=== PATIENT | female | born 1945 | race Caucasian/White ===

== ENCOUNTER → 2016-03-14 | Outpatient (CLI) | payer MEDICARE ==
--- NOTE | 2016-03-15 12:48 | MM ---
Reason for exam: screening (asymptomatic). Last mammogram was performed 1 year ago. History: Patient is postmenopausal. Family history of breast cancer in cousin. Taking estrogen for 9 years. Physical Findings: A clinical breast exam by your physician is recommended on an annual basis and results should be correlated with mammographic findings. MG 3D Screening Mammo W/Cad Bilateral CC and MLO view(s) were taken. Prior study comparison: March 10, 2015, bilateral MG 3d screening mammo w/cad. November 22, 2011, mammogram, performed at [place]. There are scattered fibroglandular densities. There is no discrete abnormality. ASSESSMENT: Negative, BI-RAD 1 RECOMMENDATION: Routine screening mammogram of both breasts in 1 year.
== END | disposition home or self-care (01) ==
LOC: RADMAMWWP 11:13
PROVIDERS: ATTEND Family Medicine
DX: Z12.31 Encounter for screening mammogram for malignant neoplasm of breast (principal)
CPT/HCPCS: 77063; G0202

== ENCOUNTER → 2017-07-20 | Outpatient (CLI) | payer MEDICARE ==
--- NOTE | 2017-07-24 13:35 | MM ---
Reason for exam: screening (asymptomatic). Last mammogram was performed 1 year and 4 months ago. History: Patient is postmenopausal. Family history of breast cancer in cousin. Taking estrogen for 9 years. Physical Findings: A clinical breast exam by your physician is recommended on an annual basis and results should be correlated with mammographic findings. MG 3D Screening Mammo W/Cad Bilateral CC and MLO view(s) were taken. Prior study comparison: March 14, 2016, bilateral MG 3d screening mammo w/cad. March 10, 2015, bilateral MG 3d screening mammo w/cad. No significant changes when compared with prior studies. ASSESSMENT: Benign, BI-RAD 2 RECOMMENDATION: Routine screening mammogram of both breasts in 1 year.
== END | disposition home or self-care (01) ==
LOC: RADMAMWWP 06:51
PROVIDERS: ATTEND Family Medicine
DX: Z12.31 Encounter for screening mammogram for malignant neoplasm of breast (principal)
CPT/HCPCS: 77063; 77067

== ENCOUNTER → 2018-07-31 | Outpatient (CLI) | payer MEDICARE ==
--- NOTE | 2018-07-31 11:13 | MM ---
Reason for exam: screening (asymptomatic). Last mammogram was performed 1 year ago. History: Patient is postmenopausal. Family history of breast cancer in cousin. Taking estrogen for 9 years. Physical Findings: A clinical breast exam by your physician is recommended on an annual basis and results should be correlated with mammographic findings. MG 3D Screening Mammo W/Cad Bilateral CC and MLO view(s) were taken. Prior study comparison: July 20, 2017, bilateral MG 3d screening mammo w/cad. March 14, 2016, bilateral MG 3d screening mammo w/cad. There are scattered fibroglandular densities. No suspicious abnormality. No significant changes when compared with prior studies. ASSESSMENT: Negative, BI-RAD 1 RECOMMENDATION: Routine screening mammogram of both breasts in 1 year.
== END | disposition home or self-care (01) ==
LOC: RADMAMWWP 06:57
PROVIDERS: ATTEND Family Medicine
DX: Z12.31 Encounter for screening mammogram for malignant neoplasm of breast (principal)
CPT/HCPCS: 77063; 77067

== ENCOUNTER → 2019-08-28 | Outpatient (CLI) | payer MEDICARE ==
--- NOTE | 2019-08-29 11:00 | MM ---
Reason for exam: screening (asymptomatic). Last mammogram was performed 1 year and 1 month ago. History: Patient is postmenopausal. Family history of breast cancer in cousin. Taking estrogen for 9 years. Physical Findings: A clinical breast exam by your physician is recommended on an annual basis and results should be correlated with mammographic findings. MG 3D Screening Mammo W/Cad Bilateral CC and MLO view(s) were taken. Prior study comparison: July 31, 2018, bilateral MG 3d screening mammo w/cad. July 20, 2017, bilateral MG 3d screening mammo w/cad. There are scattered fibroglandular densities. No significant changes when compared with prior studies. ASSESSMENT: Benign, BI-RAD 2 RECOMMENDATION: Routine screening mammogram of both breasts in 1 year.
== END | disposition home or self-care (01) ==
LOC: RADMAMWWP 09:03
PROVIDERS: ATTEND Family Medicine
DX: Z12.31 Encounter for screening mammogram for malignant neoplasm of breast (principal)
CPT/HCPCS: 77063; 77067

== ENCOUNTER → 2020-04-06 | Outpatient (CLI) | payer MEDICARE ==
--- NOTE | 2020-04-06 13:10 | MR ---
EXAMINATION TYPE: MR brain/cspine wo DATE OF EXAM: 04/06/2020 COMPARISON: NONE HISTORY: Ataxia, sudden onset, CVA, dizziness. C-spine, neck pain, hyperreflexia/myelopathy. TECHNIQUE: Multiplanar, multisequence imaging of the brain and brainstem and cervical spine are all p erformed without IV contrast. FINDINGS: BRAIN: Diffusion weighted images demonstrate no evidence of a recent infarct or other diffusion abnormality. There is no worrisome extra-axial fluid collection. Mild ventricular and sulcal prominence. More mode rate to advanced multifocal areas of T2 hyperintensity scattered throughout the superficial deep and periventricular white matter. Findings greatest at periventricular and deep levels where confluent ap pearance is noted. Lesions are nonspecific in appearance and distribution. Midline structures demonstrate normal morphology. The craniocervical junction appears within normal limits. Normal vascular flow voids are present. Mild mucosal thickening involving left ethmoid sinuse s. Bilateral globes are intact . Increased fluid signal right mastoid air cells. IMPRESSION: 1. Mild diffuse age-related cerebral atrophy and moderate to advanced chronic small vessel ischemic c hange. 2. No MRI evidence for recent infarct. 3. Increased fluid signal right mastoid air cells raises concern for possible mastoiditis, correlate clinically. C-SPINE: FINDINGS: Coronal images show levoconvex scoliosis centered in the lower cervical spine. Sagittal ron ges of the cervical spine show the craniocervical junction to appear within normal limits. There is grade 1 retrolisthesis C3 on C4 and to lesser degree C4 on C5 and C5 on C6. The cervical and upper th oracic spinal cord is normal in caliber and signal. Generalized cervical spinal canal AP diameter sal rowing. The vertebral body heights are normal. Mild disc space narrowing C3-C4 through C5-C6 levels. The bone marrow signal intensity is within normal limits. Axial images at C2-C3 level are within normal limits. Axial images at C3-C4 level show spondylolisthesis focal central disc protrusion effacing the anterio r thecal sac and uncovertebral facet degenerative changes causing [id number] bilateral neural f oraminal narrowing. Axial images at C4-C5 level uncovertebral facet degenerative changes bilaterally causing moderate rig ht greater than left bilateral neural foraminal narrowing. Axial images at C5-C6 level shows a left paracentral disc protrusion effacing the anterolateral theca l sac and causing [id number] bilateral neural foraminal narrowing. Axial images at C6-C7 level shows central disc protrusion mildly facing anterior thecal sac, patent b ilateral neural foramina. Axial images at C7-T1 level shows subtle spondylolisthesis with central disc protrusion minimally eff acing anterior thecal sac, patent bilateral neural foramina. There is heterogeneous slightly enlarged thyroid with multiple small bilateral thyroid nodules. Patie nt has history of left thyroid nodule sampling July 21, 2009. IMPRESSION: Multilevel spondylolisthesis and degenerative changes in the cervical spine as detailed a maria elena.
== END | disposition home or self-care (01) ==
LOC: RADMRIMAIN 11:26
PROVIDERS: ATTEND Psychiatry & Neurology Neurology
DX: G31.1 Senile degeneration of brain, not elsewhere classified (principal); I67.82 Cerebral ischemia; M43.12 Spondylolisthesis, cervical region; M47.812 Spondylosis without myelopathy or radiculopathy, cervical region
CPT/HCPCS: 70551; 72141

== ENCOUNTER 2020-06-24 12:24 | Emergency (ER) | payer MEDICARE ==
[2020-06-24 12:36] VITALS: RESP 16
[2020-06-24] MEDS ORDERED: PROPRANOLOL 20 MG TAB PO STA (13:18)
--- NOTE | 2020-06-24 13:21 | ED ---
General Adult HPI - General Chief complaint: Arrhythmia/Palpitations Stated complaint: heart racing/sob Time Seen by Provider: 06/24/20 12:54 Source: patient Mode of arrival: ambulatory Limitations: no limitations - History of Present Illness Initial comments: Dictation was produced using [employer] dictation software. please excuse any grammatical, word or spelling errors. This patient was cared for during a federal and state declared state of nasreen rgency secondary to Covid 19 Chief Complaint: 74-year-old female presents to the emergency department for palpitations History of Present Illness: 74-year-old female she was sent in by her neurologist for evaluation of palpitations. Patient has been slowly being weaned down from propranolol that she takes for central tremors. Since Sunday she's been having symptoms. when she completely discontinue her atenolol. Her neurologist tapered her dose. Patient states she takes his medications for essential tremors. She seen her neurologist today and was told to come to the emergency department for possible blood clot or Covid. No fever chills or night sweats. She does have some mild shortness of breath with exertion. Patient also has hypertension. At rest she has no complaints. The ROS documented in this emergency department record has been reviewed and confirmed by me. Those systems with pertinent positive or negative responses have been documented in the HPI. All other systems are other negative and/or noncontributory. PHYSICAL EXAM: General Impression: Alert and oriented x3, not in acute distress HEENT: Normocephalic atraumatic, extra-ocular movements intact, pupils equal and reactive to light bilaterally, mucous membranes moist. Cardiovascular: Tachycardic Chest: Able to complete full sentences, no retractions, no tachypnea, lungs clear to auscultation bilaterally Abdomen: abdomen soft, non-tender, non-distended, no organomegaly Musculoskeletal: Pulses present and equal in all extremities, no peripheral edema Motor: no focal deficits noted Neurological: CN II-XII grossly intact, no focal motor or sensory deficits noted Skin: Intact with no visualized rashes Psych: Normal affect and mood ED course: 74-year-old female presents to the emergency department for palpitations. She was sent here by her neurologist for evaluation of palpitations and tachycardia. She was recently weaned from her beta blockers that she was taking for essential tremors. Vital signs upon arrival shows heart rate of 116, respiratory signs within limits. Laboratory evaluation obtained. CBC, but about panel was obtained. CBC is unremarkable. Metabolic panel shows mild acidosis. D-dimer is +1.22. Troponin negative. CT angio of the chest ordered. CT is normal. No acute processes. Patient reverted bedside at 3:20 PM after given 1 dose of propranolol. She is significant improved. Heart rate is improved. Patient discharged. She is strongly advised follow-up with a primary care physician for management and hydration of her blood pressure medications instead of with neurologist. EKG interpretation: Ventricular rate 107, sinus tachycardia, MT interval 152, QRS 70, QTc 437. No MT prolongation, no QTC prolongation, no ST or T-wave changes noted. No old EKG for comparison. Overall, this EKG is unremarkable - Related Data Home Medications Medication Instructions Recorded Confirmed Primidone [Mysoline] 50 mg PO BID 06/24/20 06/24/20 hydroCHLOROthiazide 12.5 mg PO DAILY 06/24/20 06/24/20 lisinopriL 30 mg PO DAILY 06/24/20 06/24/20 Previous Rx's Medication Instructions Recorded Propranolol [Inderal] 20 mg PO BID 7 Days #14 tab 06/24/20 Allergies Allergy/AdvReac Type Severity Reaction Status Date / Time codeine Allergy Rash/Hives Verified 06/24/20 13:27 Iodinated Contrast Media Allergy Dyspnea Unverified 06/24/20 14:27 morphine Allergy Unknown Verified 06/24/20 13:27 Penicillins Allergy Rash/Hives Verified 06/24/20 13:27 Sulfa (Sulfonamide Allergy Rash/Hives Verified 06/24/20 13:27 Antibiotics) levofloxacin AdvReac Unknown Verified 06/24/20 13:27 Review of Systems ROS Statement: Those systems with pertinent positive or pertinent negative responses have been documented in the HPI. ROS Other: All systems not noted in ROS Statement are negative. Past Medical History Past Medical History: Hypertension History of Any Multi-Drug Resistant Organisms: None Reported Past Surgical History: Appendectomy, Cholecystectomy, Hysterectomy Past Psychological History: No Psychological Hx Reported Smoking Status: Never smoker Past Alcohol Use History: None Reported Past Drug Use History: None Reported General Exam Limitations: no limitations Course Vital Signs 06/24/20 12:32 Temperature 98.3 F Pulse Rate 116 H Respiratory 16 Rate Blood Pressure 135/63 O2 Sat by Pulse 97 Oximetry Medical Decision Making - Lab Data Result diagrams: 06/24/20 13:28 06/24/20 13:28 Lab Results 06/24/20 06/24/20 06/24/20 Range/Units 13:28 13:28 13:28 WBC 12.7 H (3.8-10.6) k/uL RBC 4.39 (3.80-5.40) m/uL Hgb 14.4 (11.4-16.0) gm/dL Hct 41.0 (34.0-46.0) % MCV 93.3 (80.0-100.0) fL MCH 32.8 (25.0-35.0) pg MCHC 35.1 (31.0-37.0) g/dL RDW 12.5 (11.5-15.5) % Plt Count 321 (150-450) k/uL MPV 8.3 Neutrophils % 63 % Lymphocytes % 26 % Monocytes % 7 % Eosinophils % 2 % Basophils % 1 % Neutrophils # 8.0 H (1.3-7.7) k/uL Lymphocytes # 3.3 (1.0-4.8) k/uL Monocytes # 0.8 (0-1.0) k/uL Eosinophils # 0.3 (0-0.7) k/uL Basophils # 0.1 (0-0.2) k/uL D-Dimer 1.22 H (<0.60) mg/L FEU Sodium 134 L (137-145) mmol/L Potassium 4.3 (3.5-5.1) mmol/L Chloride 101 (98-107) mmol/L Carbon Dioxide 18 L (22-30) mmol/L Anion Gap 15 mmol/L BUN 19 H (7-17) mg/dL Creatinine 0.74 (0.52-1.04) mg/dL Est GFR (CKD-EPI)AfAm >90 (>60 ml/min/1.73 sqM) Est GFR (CKD-EPI)NonAf 80 (>60 ml/min/1.73 sqM) Glucose 291 H (74-99) mg/dL Calcium 9.6 (8.4-10.2) mg/dL Troponin I (0.000-0.034) ng/mL 06/24/20 Range/Units 13:28 WBC (3.8-10.6) k/uL RBC (3.80-5.40) m/uL Hgb (11.4-16.0) gm/dL Hct (34.0-46.0) % MCV (80.0-100.0) fL MCH (25.0-35.0) pg MCHC (31.0-37.0) g/dL RDW (11.5-15.5) % Plt Count (150-450) k/uL MPV Neutrophils % % Lymphocytes % % Monocytes % % Eosinophils % % Basophils % % Neutrophils # (1.3-7.7) k/uL Lymphocytes # (1.0-4.8) k/uL Monocytes # (0-1.0) k/uL Eosinophils # (0-0.7) k/uL Basophils # (0-0.2) k/uL D-Dimer (<0.60) mg/L FEU Sodium (137-145) mmol/L Potassium (3.5-5.1) mmol/L Chloride (98-107) mmol/L Carbon Dioxide (22-30) mmol/L Anion Gap mmol/L BUN (7-17) mg/dL Creatinine (0.52-1.04) mg/dL Est GFR (CKD-EPI)AfAm (>60 ml/min/1.73 sqM) Est GFR (CKD-EPI)NonAf (>60 ml/min/1.73 sqM) Glucose (74-99) mg/dL Calcium (8.4-10.2) mg/dL Troponin I <0.012 (0.000-0.034) ng/mL Disposition Clinical Impression: Palpitations Disposition: HOME SELF-CARE Condition: Good Instructions (If sedation given, give patient instructions): Heart Palpitations (ED) Prescriptions: Propranolol [Inderal] 20 mg PO BID 7 Days #14 tab Is patient prescribed a controlled substance at d/c from ED?: No Referrals: Audra Garcia MD [Primary Care Provider] - 1-2 days Time of Disposition: 15:17
[2020-06-24 13:39] LABS: Basophils # (A) 0.1 k/uL (0-0.2); Basophils % (A) 1 %; Eosinophils # (A) 0.3 k/uL (0-0.7); Eosinophils % (A) 2 %; HGB 14.4 gm/dL (11.4-16.0); Lymphocytes # (A) 3.3 k/uL (1.0-4.8); Lymphocytes % (A) 26 %; MCH 32.8 pg (25.0-35.0); MCHC 35.1 g/dL (31.0-37.0); MCV 93.3 fL (80.0-100.0); Mean Platelet Volume 8.3; Monocytes # (A) 0.8 k/uL (0-1.0); Monocytes % (A) 7 %; Neutrophils % (A) 63 %; Platelet Count 321 k/uL (150-450); RBC 4.39 m/uL (3.80-5.40); RDW 12.5 % (11.5-15.5); WBC 12.7 k/uL (3.8-10.6)
--- NOTE | 2020-06-24 13:49 | XR ---
EXAMINATION TYPE: XR chest 1V portable DATE OF EXAM: 06/24/2020 COMPARISON: NONE HISTORY: Heart palpitations TECHNIQUE: Single frontal view of the chest is obtained. FINDINGS: There is no focal air space opacity, pleural effusion, or pneumothorax seen. The cardiac silhouette size is within normal limits. The osseous structures are intact. IMPRESSION: No acute process.
[2020-06-24 13:50] LABS: African American GFR (CKD) >90 (>60 ml/min/1.73 sqM); Anion Gap 15 mmol/L; Blood Urea Nitrogen 19 mg/dL (7-17); Calcium 9.6 mg/dL (8.4-10.2); Carbon Dioxide 18 mmol/L (22-30); Chloride 101 mmol/L (98-107); Glucose 291 mg/dL (74-99); Non-African American GFR(CKD) 80 (>60 ml/min/1.73 sqM); Potassium 4.3 mmol/L (3.5-5.1); Sodium 134 mmol/L (137-145)
[2020-06-24] MEDS ORDERED: diphenhydrAMINE 50 MG/ML 1 ML VIAL IVP STA (14:26)
[2020-06-24] MEDS ORDERED: FAMOTIDINE 20 MG/2 ML VIAL IV STA (14:28)
[2020-06-24] MEDS ORDERED: methylPREDNISolone SOD SUCCI 125 MG/2 ML VIAL IV STA (14:29)
--- NOTE | 2020-06-24 15:19 | CT ---
EXAMINATION TYPE: CT angio chest DATE OF EXAM: 06/24/2020 2:50 PM COMPARISON: None. HISTORY: Tremors, shortness of breath on exertion and fatigue CT DLP: 403.9 mGycm Automated exposure control for dose reduction was used. CONTRAST: CTA scan of the thorax is performed with IV Contrast, patient injected with 100 mL of Isovue 370, pul monary embolism protocol. MIP images are created and reviewed. FINDINGS: LUNGS: Dependent atelectasis right greater than left lung bases. No suspicious focal groundglass opac ity or consolidation. There is a 8 millimeter calcified nodule or granuloma posterior right lung base axial image 123. No pleural effusion or pneumothorax seen bilaterally. Somewhat low lung volumes. MEDIASTINUM: Satisfactory enhancement of the aorta without aneurysm or dissection. There is satisfact ory enhancement of the pulmonary artery and its branches, there is no CT evidence for pulmonary embol ism. There are some prominent but subcentimeter bilateral hilar lymph nodes. No abnormal greater megan n 1 cm thoracic lymph nodes. No cardiomegaly or pericardial effusion is seen. Slightly heterogeneou s fullness of left thyroid lobe versus visualized portion of right thyroid lobe. Correlate for goiter . OTHER: Mild chronic height loss T12 vertebra. Cholecystectomy clips on localizer. IMPRESSION: No CT evidence for acute pulmonary embolism. No suspicious acute pulmonary process.
[2020-06-24 15:43] VITALS: BP 135/75; PULSE 64; TEMP 97.7
== END 2020-06-24 15:42 | disposition home or self-care (01) ==
LOC: EC 12:24
DX: R00.2 Palpitations (principal); I10 Essential (primary) hypertension
CPT/HCPCS: 36415; 93005; 85379; 80048; 84484; 85025; 71045; 71275; 99285; 96374; 96375; J1200; J2930; Q9967

== ENCOUNTER → 2020-08-02 | Outpatient (CLI) | payer MEDICARE ==
--- NOTE | 2020-08-02 10:56 | US ---
EXAMINATION TYPE: US abdomen complete DATE OF EXAM: 08/02/2020 COMPARISON: NONE CLINICAL HISTORY: 75-year-old female R10.84 Generalized abdominal pain. TECHNIQUE: Multiple sonographic images of the abdomen are obtained. FINDINGS: EXAM MEASUREMENTS: Liver Length: 15.6 cm Gallbladder: Surgically absent CBD: .4 cm Spleen: 9.1 cm Right Kidney: 9.1 x 3.7 x 3.3 cm Left Kidney: 9.9 x 4.6 x 3.9 cm Technology Assistant notes: Exam limitations due to body habitus Pancreas: Obscured by bowel gas Liver: Echogenic and attenuating. This secondarily limits assessment for focal lesions. Gallbladder: Surgically absent Evidence for sonographic Larson's sign: No CBD: wnl Spleen: Limited detail visualization, overall normal size. Right Kidney: No hydronephrosis or masses seen Left Kidney: No hydronephrosis or masses seen Upper IVC: Limited Abd Aorta: wnl IMPRESSION: 1. Moderate to severe hepatic steatosis. The altered liver echogenicity secondarily limits assessment for focal lesions. 2. Status post cholecystectomy. No biliary ductal dilatation.
== END | disposition home or self-care (01) ==
LOC: RADUSWWP 07:10
PROVIDERS: ATTEND Family Medicine
DX: K76.0 Fatty (change of) liver, not elsewhere classified (principal); R93.2 Abnormal findings on diagnostic imaging of liver and biliary tract; Z90.49 Acquired absence of other specified parts of digestive tract
CPT/HCPCS: 76700; 83036

== ENCOUNTER → 2020-10-05 | Outpatient (CLI) | payer MEDICARE ==
--- NOTE | 2020-10-05 14:37 | BD ---
EXAMINATION TYPE: Axial Bone Density DATE OF EXAM: 10/05/2020 COMPARISON: NONE CLINICAL HISTORY: Postmenopausal female Height: 63.5 Weight: 179.3 FRAX RISK QUESTIONS: Alcohol (3 or more units per day): no Family History (Parent hip fracture): no Glucocorticoids (More than 3mos): no (Ex: prednisone, prednisolone, methylprednisolone, dexamethasone, and hydrocortisone). History of Fracture in Adulthood: yes Secondary Osteoporosis: 1. Type 1 Diabetes: no 2. Hyperthyroidism: no 3. Menopause before 45: no 4. Malnutrition: no 5. Chronic liver disease: no Rheumatoid Arthritis: no Current Tobacco Use: no RISK FACTORS HISTORY OF: Surgery to Spine/Hip(right/left)/Wrist (right/left): no Family History of Osteoporosis: no Active: no Diet low in dairy products/other sources of calcium: yes Postmenopausal woman: age 51 Lost more than 2 inches in height since high school: yes MEDICATIONS: propanolol Additional History: EXAM MEASUREMENTS: Bone mineral densitometry was performed using the [employer]. Bone mineral density as measured about the Lumbar spine is: ----- L1-L4(G/cm2): 1.042 T Score Values are as follows: ----- L2: -1.3 ----- L3: -1.7 ----- L4: -0.2 ----- L1-L4: -1.1 Bone mineral density has: decreased -9.3 % since study of: 12.14.2006 Bone mineral density about the R hip (g/cm2): 0.729 Bone mineral density about the L hip (g/cm2): 0.700 T Score values are as follows: -----R Neck: -2.2 -----L Neck: -2.4 -----R Total: -2.0 -----L Total: -1.9 Bone mineral density has: decreased -14.3 % since study of: 12.14.2006 IMPRESSION: Osteopenia (T Score between -2.5 and -1). There is slightly increased risk of fracture and the patient may be considered for treatment. Re-Screen 2-5 years. NOTE: T-SCORE=SD OF THE YOUNG ADULT MEAN.
--- NOTE | 2020-10-07 13:04 | MM ---
Reason for exam: screening (asymptomatic). Last mammogram was performed 1 year and 1 month ago. History: Patient is postmenopausal. Family history of breast cancer in 2 maternal cousins. Took estrogen for 20 years beginning at age 48. Physical Findings: A clinical breast exam by your physician is recommended on an annual basis and results should be correlated with mammographic findings. MG 3D Screening Mammo W/Cad Bilateral CC and MLO view(s) were taken. Prior study comparison: August 28, 2019, bilateral MG 3d screening mammo w/cad. July 31, 2018, bilateral MG 3d screening mammo w/cad. July 20, 2017, bilateral MG 3d screening mammo w/cad. The breast tissue is almost entirely fat. No significant changes when compared with prior studies. ASSESSMENT: Benign, BI-RAD 2 RECOMMENDATION: Routine screening mammogram of both breasts in 1 year.
== END | disposition home or self-care (01) ==
LOC: RADMAMWWP 08:02
PROVIDERS: ATTEND Family Medicine
DX: Z12.31 Encounter for screening mammogram for malignant neoplasm of breast (principal); Z78.0 Asymptomatic menopausal state; Z80.3 Family history of malignant neoplasm of breast; M85.80 Other specified disorders of bone density and structure, unspecified site
CPT/HCPCS: 77063; 77067; 77080

== ENCOUNTER → 2020-11-09 | Outpatient (CLI) | payer MEDICARE ==
[2020-11-09 15:19] LABS: African American GFR (CKD) 71.5 (60.0-200.0); Albumin 4.5 g/dL (3.80-4.90); Albumin/Globulin Ratio 1.55 (1.60-3.17); Anion Gap 10.2 mmol/L (4.00-12.00); BUN/Creat Ratio 18.89 Ratio (12.00-20.00); Calcium 9.3 mg/dL (8.7-10.3); Carbon Dioxide 22.8 mmol/L (21.6-31.8); Chol/HDL Ratio 5.8; Globulin 2.9 g/dL (1.6-3.3); LDL Cholesterol,Calculated 118.4 mg/dL (0.0-131.0); Non-African American GFR(CKD) 61.7 (60.0-200.0); Potassium 4.5 mmol/L (3.5-5.5); Total Bilirubin 0.6 mg/dL (0.3-1.2); Total Protein 7.4 g/dL (6.2-8.2); VLDL Calculation 49.6 mg/dL (5.00-40.00)
== END | disposition home or self-care (01) ==
LOC: LABWHC1 08:02
PROVIDERS: ATTEND Family Medicine
DX: Z13.220 Encounter for screening for lipoid disorders (principal); E11.9 Type 2 diabetes mellitus without complications; R74.01 Elevation of levels of liver transaminase levels
CPT/HCPCS: 36415; 80053; 80061; 83036

== ENCOUNTER 2020-12-04 08:10 | Emergency (ER) | payer MEDICARE ==
[2020-12-04 08:19] VITALS: RESP 18
--- NOTE | 2020-12-04 08:32 | ED ---
General Adult HPI - General Chief complaint: ENT Stated complaint: ENT Time Seen by Provider: 12/04/20 08:21 Source: patient, RN notes reviewed Mode of arrival: wheelchair Limitations: physical limitation - History of Present Illness Initial comments: Patient is a pleasant 75-year-old female presenting to the emergency department with sore throat. Onset of symptoms was 5 days ago. Sore throat is mild but annoying. Discomfort increases with swallowing. Patient does have mild cough. Patient did have a fever for 5 days ago on that one day only. Patient has developed 3 sores in her mouth over the past couple of days. One of the sores has now resolved. No rash. - Related Data Home Medications Medication Instructions Recorded Confirmed Primidone [Mysoline] 50 mg PO BID 06/24/20 06/24/20 hydroCHLOROthiazide 12.5 mg PO DAILY 06/24/20 06/24/20 lisinopriL 30 mg PO DAILY 06/24/20 06/24/20 Previous Rx's Medication Instructions Recorded Propranolol [Inderal] 20 mg PO BID 7 Days #14 tab 06/24/20 Allergies Allergy/AdvReac Type Severity Reaction Status Date / Time codeine Allergy Rash/Hives Verified 12/04/20 08:19 Iodinated Contrast Media Allergy Dyspnea Verified 12/04/20 08:19 morphine Allergy Unknown Verified 12/04/20 08:19 Penicillins Allergy Rash/Hives Verified 12/04/20 08:19 Sulfa (Sulfonamide Allergy Rash/Hives Verified 12/04/20 08:19 Antibiotics) levofloxacin AdvReac Unknown Verified 12/04/20 08:19 Review of Systems ROS Statement: Those systems with pertinent positive or pertinent negative responses have been documented in the HPI. ROS Other: All systems not noted in ROS Statement are negative. Constitutional: Denies: fever Eyes: Denies: eye pain ENT: Reports: as per HPI, throat pain. Denies: ear pain Respiratory: Reports: cough. Denies: dyspnea Cardiovascular: Denies: chest pain Endocrine: Denies: fatigue Gastrointestinal: Denies: abdominal pain Genitourinary: Denies: urgency Musculoskeletal: Denies: back pain Skin: Denies: rash Neurological: Denies: weakness Past Medical History Past Medical History: Hypertension History of Any Multi-Drug Resistant Organisms: None Reported Past Surgical History: Appendectomy, Cholecystectomy, Hysterectomy Past Psychological History: No Psychological Hx Reported Smoking Status: Never smoker Past Alcohol Use History: None Reported Past Drug Use History: None Reported General Exam Limitations: physical limitation General appearance: alert, in no apparent distress Head exam: Present: atraumatic Eye exam: Present: normal appearance, PERRL ENT exam: Present: other (Mild pharyngeal erythema. 2 aphthous ulcers present, one in her lower lip, the other left buccal) Neck exam: Present: normal inspection Respiratory exam: Present: normal lung sounds bilaterally Cardiovascular Exam: Present: regular rate, normal rhythm Neurological exam: Present: alert Psychiatric exam: Present: normal affect, normal mood Skin exam: Present: normal color Course Vital Signs 12/04/20 08:17 Temperature 98.4 F Pulse Rate 63 Respiratory 18 Rate Blood Pressure 147/67 O2 Sat by Pulse 95 Oximetry Medical Decision Making - Medical Decision Making Patient reevaluated and updated. Patient is a candidate for monoclonal antibodies and would like to receive them. Patient will be discharged following this. - Lab Data Lab Results 12/04/20 12/04/20 Range/Units 08:31 08:31 Coronavirus (PCR) Detected A (Not Detectd) Group A Strep Rapid Negative (Negative) Disposition Clinical Impression: COVID-19 Disposition: HOME SELF-CARE Condition: Stable Instructions (If sedation given, give patient instructions): Coronavirus Disease 2019 (COVID-19) Additional Instructions: Continue to quarantine for a total of 10 days following onset of symptoms and 24 hours symptom and fever free. [id number] Tylenol as needed. [id number] vitamin C, vitamin D, and seemed to help. Melatonin at bedtime may help. Return for difficulty breathing, not tolerating fluids, worsening symptoms or other concerns. Is patient prescribed a controlled substance at d/c from ED?: No Referrals: Audra Garcia MD [Primary Care Provider] - 1-2 days Time of Disposition: 09:58
[2020-12-04] MEDS ORDERED: SODIUM CHLORIDE 0.9% 500 ML 500 ML IV STA (09:24)
[2020-12-04] MEDS ORDERED: SODIUM CHLORIDE 0.9% 50 ML IVPB ONE (10:15)
[2020-12-04] MEDS ORDERED: CASIRIVIMAB (REGN10933) (EUA) 600 MG, IMDEVIMAB (REGN10987) (EUA) 600 MG in SODIUM CHLO... IVPB ONE (10:30)
[2020-12-04 12:29] VITALS: BP 141/82; PULSE 50; TEMP 98.9
== END 2020-12-04 12:30 | disposition home or self-care (01) ==
LOC: EC 08:10
DX: U07.1 COVID-19 (principal); I10 Essential (primary) hypertension; Z88.0 Allergy status to penicillin; Z88.2 Allergy status to sulfonamides; Z88.5 Allergy status to narcotic agent; Z88.1 Allergy status to other antibiotic agents; Z90.49 Acquired absence of other specified parts of digestive tract; Z90.710 Acquired absence of both cervix and uterus
CPT/HCPCS: 99283; 87081; 87430; 87635; Q0243

== ENCOUNTER → 2021-09-21 | Outpatient (CLI) | payer MEDICARE ==
[2021-09-22 11:32] LABS: Liver/Kidney Microsome Antibod 1.3 UNITS (<=20)
== END | disposition home or self-care (01) ==
LOC: LABWHC1 15:27
PROVIDERS: ATTEND Family Medicine
DX: R74.8 Abnormal levels of other serum enzymes (principal); R74.01 Elevation of levels of liver transaminase levels
CPT/HCPCS: 36415; 83516; 86038; 86039; 86376

== ENCOUNTER → 2021-10-11 | Outpatient (CLI) | payer MEDICARE ==
--- NOTE | 2021-10-11 10:48 | MM ---
Reason for Exam: Screening (asymptomatic). Last screening mammogram was performed 12 month(s) ago. Patient History: Menarche at age 10. First Full-Term at age 21. Left ovary removed at age 48. Right ovary removed at age 48. Hysterectomy at age 48. Postmenopausal. Estrogen for 20 years from age 48 until age 68. Maternal cousin had breast cancer. Maternal cousin had breast cancer. Risk Values: Bree 5 year model risk: 1.5%. NCI Lifetime model risk: 2.8%. Prior Study Comparison: 07/31/2018 Bilateral Screening Mammogram, [facility]. 08/28/2019 Bilateral Screening Mammogram, [facility]. 10/05/2020 Bilateral Screening Mammogram, [facility]. Tissue Density: There are scattered fibroglandular densities. Findings: Analyzed By CAD. There is no suspicious group of microcalcifications or new suspicious mass in either breast. Overall Assessment: Negative, BI-RAD 1 Management: Screening Mammogram of both breasts in 1 year. A clinical breast exam by your physician is recommended on an annual basis and results should be correlated with mammographic findings. Electronically signed and approved by: Jf Hercules DO
== END | disposition home or self-care (01) ==
LOC: RADMAMWWP 06:59
PROVIDERS: ATTEND Family Medicine
DX: Z12.31 Encounter for screening mammogram for malignant neoplasm of breast (principal); Z78.0 Asymptomatic menopausal state; Z80.3 Family history of malignant neoplasm of breast
CPT/HCPCS: 77063; 77067

== ENCOUNTER 2022-01-09 08:28 | Day surgery (SDC) | payer MEDICARE ==
--- NOTE | 2022-01-09 08:02 | P.GSHP ---
History of Present Illness H&P Date: 01/09/22 CHIEF COMPLAINT: GERD HISTORY OF PRESENT ILLNESS: The patient is a 76-year-old female who presents reports gastroesophageal reflux disease. Upper endoscopy was offered for further evaluation and management. PAST MEDICAL HISTORY: Please see list. PAST SURGICAL HISTORY: Please see list. MEDICATIONS: Please see list. ALLERGIES: Please see list. SOCIAL HISTORY: No illicit drug use FAMILY HISTORY: No reports of Crohn disease or ulcerative colitis. REVIEW OF ORGAN SYSTEMS: CONSTITUTIONAL: No reports of fevers or chills. GI: Denies any blood in stools or constipation. PHYSICAL EXAM: VITAL SIGNS: Stable GENERAL: Well-developed and pleasant in no acute distress. HEENT: No scleral icterus. Extraocular movements grossly intact. Moist buccal mucosa. NECK: Supple without lymphadenopathy. CHEST: Unlabored respirations. Equal bilateral excursions. CARDIOVASCULAR: Regular rate and rhythm. Distal 2+ pulses. ABDOMEN: Soft, nondistended. MUSCULOSKELETAL: No clubbing, cyanosis, or edema. ASSESSMENT: 1. Gastroesophageal reflux disease PLAN: 1. Recommend proceeding with an upper endoscopy Past Medical History Past Medical History: Hypertension Additional Past Medical History / Comment(s): tremors History of Any Multi-Drug Resistant Organisms: None Reported Past Surgical History: Appendectomy, Cholecystectomy, Hysterectomy Additional Past Surgical History / Comment(s): thyroid nodules Past Anesthesia/Blood Transfusion Reactions: No Reported Reaction Smoking Status: Never smoker Medications and Allergies Home Medications Medication Instructions Recorded Confirmed Type Propranolol [Inderal] 160 mg PO BID 12/22/21 01/05/22 History Allergies Allergy/AdvReac Type Severity Reaction Status Date / Time naproxen [From Aleve] Allergy Unknown Unknown Verified 01/05/22 10:47 codeine Allergy Rash/Hives Verified 01/05/22 10:47 Iodinated Contrast Media Allergy Dyspnea Verified 01/05/22 10:47 Penicillins Allergy Rash/Hives Verified 01/05/22 10:47 Sulfa (Sulfonamide Allergy Rash/Hives Verified 01/05/22 10:47 Antibiotics) levofloxacin AdvReac Unknown Verified 01/05/22 10:47
[~2022-01-09 08:28] MED LIST: LACTATED RINGERS 1,000 ML IV SCH
[2022-01-09 08:53] VITALS: TEMP 97
[2022-01-09 08:58] LABS: Glucose,Whole Blood 267 mg/dL (70-110)
[2022-01-09] MEDS ORDERED: LIDOCAINE 2% INJ 20 MG/ML (2 ML VIAL) ONE (09:48)
[2022-01-09] MEDS ORDERED: PROPOFOL 10 MG/ML 20 ML VIAL IV ONE (09:48)
[2022-01-09 10:06] VITALS: RESP 16
[2022-01-09] MEDS ORDERED: INSULIN ASPART (NovoLOG) 100 UNIT/ML VIAL SQ ONE ×2 (10:10→10:40)
[2022-01-09 10:11] LABS: Glucose,Whole Blood 248 mg/dL (70-110)
[2022-01-09 10:22] VITALS: BP 139/72; PULSE 55
--- NOTE | 2022-01-09 10:27 | P.PCN ---
Date of Procedure: 01/09/22 Description of Procedure: PREOPERATIVE DIAGNOSIS: Gastroesophageal reflux disease. Dysphagia POSTOPERATIVE DIAGNOSIS: Gastroesophageal reflux disease. Presbyesophagus Gastritis. Diaphragmatic hiatal hernia OPERATION: Esophagogastroduodenoscopy with biopsies along antrum and duodenum SURGEON: Laura Tan MD ANESTHESIA: MAC. INDICATIONS: The patient is a 76-year-old female who presents with reflux disease. Benefits and risks of the procedure were described. Informed consent was obtained. DESCRIPTION: The patient was brought into the endoscopy suite and laid in the left lateral decubitus position. An Olympus gastroscope was passed along the posterior oropharynx down to the distal esophagus where the squamocolumnar junction was encountered at 38 cm from the incisors. The stomach was entered and no bile reflux was found. Additional findings are listed below. Biopsies with cold forceps were obtained of the antrum. The first through third portion of the duodenum was examined. Retroflexion of the scope confirmed Hill grade 3 lower esophageal valve. The squamocolumnar junction demonstrated LA grade B erosive esophagitis. The stomach was desufflated. The patient tolerated the procedure well. FINDINGS: Squamocolumnar junction 38 cm from the incisors. Diaphragmatic hiatus at 40 cm. Hiatal hernia, 2 cm Hill grade 3 lower esophageal valve. LA grade B erosive esophagitis. No active duodenitis. Chronic gastritis with recent bleed RECOMMENDATIONS: Protonix 40 mg daily for 2 weeks Repeat upper endoscopy for dysphagia Recommend esophagram for dysphagia Plan - Discharge Summary Discharge Rx Participant: No New Discharge Prescriptions: New Pantoprazole [Protonix] 40 mg PO DAILY #14 tab Continue Propranolol [Inderal] 160 mg PO BID Discharge Medication List Propranolol [Inderal] 160 mg PO BID 12/22/21 [History] Pantoprazole [Protonix] 40 mg PO DAILY #14 tab 01/09/22 [Rx] Follow up Appointment(s)/Referral(s): Laura Tan MD [STAFF PHYSICIAN] - 01/24/22 Patient Instructions/Handouts: *[facility] - (Anesthesia) Endoscopy Discharge Instructions Discharge Disposition: HOME SELF-CARE
[2022-01-09 10:56] LABS: Glucose,Whole Blood 233 mg/dL (70-110)
== END 2022-01-09 10:53 | disposition home or self-care (01) ==
LOC: ORWHC2ENDO 08:28
PROVIDERS: ATTEND Surgery Plastic and Reconstructive Surgery
DX: K29.50 Unspecified chronic gastritis without bleeding (principal); K44.9 Diaphragmatic hernia without obstruction or gangrene; I10 Essential (primary) hypertension; R13.10 Dysphagia, unspecified; K22.89 Other specified disease of esophagus; Z88.0 Allergy status to penicillin; Z88.1 Allergy status to other antibiotic agents; Z88.2 Allergy status to sulfonamides; Z88.6 Allergy status to analgesic agent; Z90.49 Acquired absence of other specified parts of digestive tract
CPT/HCPCS: 88305; 43239; J2704; J2001

== ENCOUNTER 2022-02-09 14:42 | Emergency (ER) | payer MEDICARE ==
[2022-02-09] MEDS ORDERED: MORPHINE SULFATE 4 MG/ML SYRINGE IM STA (15:00)
--- NOTE | 2022-02-09 15:04 | ED ---
Fall HPI - General Chief Complaint: Fall Stated Complaint: fall - History of Present Illness Initial Comments: Patient is a pleasant 76-year-old female presenting to the emergency room via EMS after stepping off of the curb while exiting all of garden earlier this afternoon falling onto her face. She reports that she hit her face and nasal bridge along with somehow injuring her right shoulder though she denies putting her arms out to catch herself falling directly onto her right shoulder. She does state that she heard a popping sensation when her right shoulder began to hurt. She is unable to perform active range of motion and passive range of motion is limited due to pain. She does have a laceration to her nasal bridge but denies any other lacerations. She denies dizziness or loss of consciousness prior to or after the fall. She does have an essential tremor which she reports gets worse when she is anxious consequently her tremor is significant right now. She denies pain anywhere except her facial laceration regions and her right shoulder. She denies any abdominal pain, chest pain, shortness of breath, focal neurological deficits, altered mental status or other complaints or concerns. She has a past medical history significant for hypertension and hypothyroidism in addition to her essential tremors. She reports that she is not on any blood thinners including a daily aspirin. - Related Data Home Medications Medication Instructions Recorded Confirmed Pioglitazone [Actos] 30 mg PO DIRECTED 02/09/22 02/09/22 Propranolol HCl [Propranolol HCl 160 mg PO BID@0600,1800 02/09/22 02/09/22 ER] Previous Rx's Medication Instructions Recorded traMADol HCL 50 mg PO Q6H 3 Days #12 tab 02/09/22 Allergies Allergy/AdvReac Type Severity Reaction Status Date / Time Iodinated Contrast Media Allergy Severe Dyspnea Verified 02/09/22 16:07 naproxen [From Aleve] Allergy Unknown Unknown Verified 02/09/22 16:07 codeine Allergy Rash/Hives Verified 02/09/22 16:07 Penicillins Allergy Rash/Hives Verified 02/09/22 16:07 Sulfa (Sulfonamide Allergy Rash/Hives Verified 02/09/22 16:07 Antibiotics) levofloxacin AdvReac Unknown Verified 02/09/22 16:07 Review of Systems ROS Statement: Those systems with pertinent positive or pertinent negative responses have been documented in the HPI. ROS Other: All systems not noted in ROS Statement are negative. Past Medical History Past Medical History: Hypertension, Thyroid Disorder Additional Past Medical History / Comment(s): tremors History of Any Multi-Drug Resistant Organisms: None Reported Past Surgical History: Appendectomy, Cholecystectomy, Hysterectomy Additional Past Surgical History / Comment(s): thyroid nodules Past Anesthesia/Blood Transfusion Reactions: No Reported Reaction Smoking Status: Never smoker Course Vital Signs 02/09/22 02/09/22 15:00 17:28 Temperature 97 F L 98.0 F Pulse Rate 58 L 57 L Respiratory 18 16 Rate Blood Pressure 183/103 149/93 O2 Sat by Pulse 97 96 Oximetry Medical Decision Making - Medical Decision Making 76-year-old female presenting to the emergency room via EMS after stepping off of the curb while exiting all of garden earlier this afternoon falling onto her face. She reports that she hit her face and nasal bridge along with somehow injuring her right shoulder though she denies putting her arms out to catch herself falling directly onto her right shoulder. Will obtain x-ray of right shoulder along with CT of brain and cervical spine and CT of facial bones. No indication for laboratory studies. Will give morphine for pain. CT cervical spine and brain without contrast for contrast imaging interpreted by me demonstrates no hemorrhage, mass, skull fracture, cervical fracture or dislocation. CT of the facial bones which is interpreted by me demonstrates no facial fractures. Right shoulder x-ray is interpreted by me demonstrates fracture of the humeral neck with avulsion at the greater tuberosity. No indication for orthopedic consult. Patient stable for discharge in sling for immobilization with orthopedic follow-up. Pain improved after morphine. Will provide prescription for tramadol to utilize for pain until able to follow-up with orthopedic. Right upper extremity sling applied by myself. Will discharge home in stable conditions with sling intact to right arm with mobility restrictions to right upper extremity and orthopedic follow-up. Case discussed with Dr. Pimentel. - Lab Data Lab Results 02/09/22 Range/Units 16:14 POC Glucose (mg/dL) 220 H (70-110) mg/dL POC Glu [employer] ID Pat Madrigal - Radiology Data Radiology results: report reviewed, image reviewed Disposition Clinical Impression: Fall, Fracture of anatomical neck of right humerus Disposition: HOME SELF-CARE Condition: Stable Instructions (If sedation given, give patient instructions): Arm Fracture in Adults (ED), Fall Prevention for Older Adults (ED) Additional Instructions: Please contact orthopedic office to schedule an appointment. Please utilize tramadol prescription for pain as needed may also alternate ibuprofen and Tylenol with tramadol as needed. Please maintain use of sling continuously. Please return to the Emergency Department if symptoms worsen or any other concerns. Prescriptions: traMADol HCL 50 mg PO Q6H 3 Days #12 tab Is patient prescribed a controlled substance at d/c from ED?: Yes When asked, does pt state using other controlled substances?: No If prescribed controlled substance>3 days was MAPS reviewed?: Prescribed <3 Days If opioid is for acute pain is fill amount 7 days or less?: Yes Referrals: Carrie Alvares MD [STAFF PHYSICIAN] - 1-2 days Tiffanie Davidson DO [Doctor of Osteopathic Medicine] - 1-2 days Time of Disposition: 16:34
--- NOTE | 2022-02-09 15:44 | XR ---
EXAMINATION TYPE: XR shoulder complete RT DATE OF EXAM: 02/09/2022 COMPARISON: None HISTORY: Fall, pain TECHNIQUE: 3 view right shoulder FINDINGS: There is fracture of the surgical neck of the right humerus. Slight diastases of the fractu re fragments is evident. There is avulsion of the greater tuberosity. The humeral head has some subluxation from the glenoid. IMPRESSION: 1. Fracture of the humeral neck with avulsion of greater tuberosity right humerus
--- NOTE | 2022-02-09 15:47 | CT ---
EXAMINATION TYPE: CT brain cspine wo con, CT facial bones wo con CT DLP: 1450 mGycm, Automated exposure control for dose reduction was used. DATE OF EXAM: 02/09/2022 3:33 PM COMPARISON: None. CLINICAL INDICATION:Female, 76 years old with history of fall; Fall. TECHNIQUE: Brain: Multiple axial CT images of the brain were obtained without IV contrast. Cspine: Axial CT images from the skull base to the inferior aspect of T2 we obtained without intraven ous contrast. Coronal and sagittal reformatted images were also reviewed. Facial: Axial CT images of the face with sagittal and coronal reformats were performed. FINDINGS: Brain: Extra-axial spaces: No abnormal extra-axial fluid collections. Ventricular system: Within normal limits Cerebral parenchyma: No acute intraparenchymal hemorrhage or mass effect. The pierre-white junction is well differentiated. Scattered hypoattenuating areas are seen within the white matter. Cerebellum: Unremarkable. Mass effect: No evidence of midline shift. Intracranial vasculature: unremarkable Soft tissues: Normal. Calvarium/osseous structures: No depressed skull fracture. Paranasal sinuses and mastoid air cells: Mucosal thickening of the sphenoid sinus. Visualized orbits: Orbital contents are intact. Cervical spine: Fracture: None. Osseous structures: Multilevel degenerative disc disease changes with endplate spurring and disc oste ophyte complex's. Vertebral alignment: Within normal limits. Spinal canal/Neural Foramina: No evidence of significant spinal canal narrowing. No evidence for sign ificant neural foraminal stenosis. Neck soft tissues: Prevertebral soft tissues are within normal limits. Other: The airway is patent. Left upper lobe calcified granuloma. Enlarged multinodular thyroid gland bilaterally. The left extending down towards the thoracic inlet. Facial: No evidence of facial bone fracture. Soft tissues are grossly unremarkable. The temporal trace ibular joints are symmetric with mild joint space loss. IMPRESSION: 1. No acute intracranial process. 2. No evidence for facial fracture. 3. Nonspecific white matter changes, likely secondary to chronic small vessel ischemic disease. 4. No evidence of cervical spine fracture. 5. Mild multilevel degenerative disc disease.
[2022-02-09 16:23] LABS: Glucose,Whole Blood 220 mg/dL (70-110)
[2022-02-09 17:29] VITALS: BP 149/93
[2022-02-09 17:34] VITALS: PULSE 57; RESP 16; TEMP 98
== END 2022-02-09 17:44 | disposition home or self-care (01) ==
LOC: EC 14:42
DX: S12.9XXA Fracture of neck, unspecified, initial encounter (principal); S42.301A Unspecified fracture of shaft of humerus, right arm, initial encounter for closed fracture; I10 Essential (primary) hypertension; Z88.6 Allergy status to analgesic agent; Z88.0 Allergy status to penicillin; Z88.1 Allergy status to other antibiotic agents; Z88.2 Allergy status to sulfonamides; Z88.5 Allergy status to narcotic agent; W10.1XXA Fall (on)(from) sidewalk curb, initial encounter; Y92.415 Exit ramp or entrance ramp of street or highway as the place of occurrence of the external cause
CPT/HCPCS: 36415; 73030; 72125; 70486; 70450; 99285; 96372; J2270

== ENCOUNTER → 2023-02-07 | Outpatient (CLI) | payer MEDICARE ==
[2023-02-07 11:02] LABS: Basophils # (A) 0.04 X 10*3/uL (0.00-0.10); Basophils % (A) 0.4 %; Eosinophils # (A) 0.15 X 10*3/uL (0.04-0.35); Eosinophils % (A) 1.6 %; HCT 39.8 % (37.2-46.3); HGB 13.4 g/dL (12.0-15.0); Lymphocytes % (A) 34.7 %; MCH 33.4 pg (27.0-32.0); MCHC 33.7 g/dL (32.0-37.0); MCV 99.3 FL (80.0-97.0); Mean Platelet Volume 12.4 FL (9.5-12.2); Monocytes # (A) 0.68 X 10*3/uL (0.20-1.00); Monocytes % (A) 7.4 %; NRBC Per 100 WBC 0 X 10*3/uL (0.00-0.01); Neutrophils # (A) 5.11 X 10*3/uL (1.80-7.70); Neutrophils % (A) 55.6 %; Platelet Count 235 X 10*3/uL (140-440); RBC 4.01 X 10*6/uL (4.10-5.20); WBC 9.21 X 10*3/uL (4.50-10.00)
[2023-02-07 11:25] LABS: ALT 36 U/L (8-44); AST 31 U/L (13-35); Albumin 4.3 g/dL (3.8-4.9); Albumin/Globulin Ratio 1.54 Ratio (1.60-3.17); Alkaline Phosphatase 118 U/L (41-126); BUN/Creat Ratio 31.12 Ratio (12.00-20.00); Blood Urea Nitrogen 24.9 mg/dL (9.0-27.0); Calcium 9.8 mg/dL (8.7-10.3); Carbon Dioxide 21.7 mmol/L (21.6-31.8); Chloride 106 mmol/L (96-109); Chol/HDL Ratio 5.45 Ratio; Globulin 2.8 g/dL (1.6-3.3); Glucose 193 mg/dL (70-110); LDL Cholesterol,Calculated 120.7 mg/dL (0.0-131.0); Potassium 4.8 mmol/L (3.5-5.5); Sodium 141 mmol/L (135-145); T4, Free (Free Thyroxine) 1.49 ng/dL (0.80-1.80); Total Bilirubin 0.5 mg/dL (0.3-1.2); Total Protein 7.1 g/dL (6.2-8.2)
[2023-02-07 11:31] LABS: Microalbumin Creatinine Ratio <6 mg/g Cr (0-30)
== END | disposition home or self-care (01) ==
LOC: LABWHC1 07:09
PROVIDERS: ATTEND Internal Medicine Geriatric Medicine
DX: E11.36 Type 2 diabetes mellitus with diabetic cataract (principal); E78.5 Hyperlipidemia, unspecified; E04.1 Nontoxic single thyroid nodule; K75.81 Nonalcoholic steatohepatitis (NASH)
CPT/HCPCS: 36415; 80053; 80061; 82043; 82570; 83036; 84439; 84443; 85025

== ENCOUNTER 2023-03-02 10:26 | Emergency (ER) | payer MEDICARE ==
[2023-03-02] MEDS ORDERED: IBUPROFEN 600 MG TAB PO STA (11:03)
--- NOTE | 2023-03-02 11:05 | ED ---
Back Pain HPI - General Chief Complaint: Back Pain/Injury Stated Complaint: back pain,abd pain Time Seen by Provider: 03/02/23 10:49 Source: patient, RN notes reviewed Limitations: no limitations - History of Present Illness Initial Comments: Patient is 77-year-old female presented ER with chief complaint of back pain. Patient states for about a week she has been experiencing excruciating back pain. Patient denies any known traumas. Patient does state that she has been playing with her great-granddaughter and was doing laundry and turned which might have flared up her back. Patient states that she is also feeling a pressure in her suprapubic region. And to relieve the pressure she pushed on her belly causing herself to urinate. Patient denies any fevers, saddle pa resthesias, weakness, bowel or bladder incontinence. - Related Data Home Medications Medication Instructions Recorded Confirmed Pioglitazone [Actos] 30 mg PO DIRECTED 02/09/22 02/09/22 Propranolol HCl [Propranolol HCl 160 mg PO BID@0600,1800 02/09/22 02/09/22 ER] Previous Rx's Medication Instructions Recorded traMADol HCL 50 mg PO Q6H 3 Days #12 tab 02/09/22 Allergies Allergy/AdvReac Type Severity Reaction Status Date / Time Iodinated Contrast Media Allergy Severe Dyspnea Verified 03/02/23 10:44 naproxen [From Aleve] Allergy Unknown Unknown Verified 03/02/23 10:44 codeine Allergy Rash/Hives Verified 03/02/23 10:44 Penicillins Allergy Rash/Hives Verified 03/02/23 10:44 Sulfa (Sulfonamide Allergy Rash/Hives Verified 03/02/23 10:44 Antibiotics) levofloxacin AdvReac Unknown Verified 03/02/23 10:44 Review of Systems ROS Statement: Those systems with pertinent positive or pertinent negative responses have been documented in the HPI. ROS Other: All systems not noted in ROS Statement are negative. Past Medical History Past Medical History: Hypertension, Thyroid Disorder Additional Past Medical History / Comment(s): tremors History of Any Multi-Drug Resistant Organisms: None Reported Past Surgical History: Appendectomy, Cholecystectomy, Hysterectomy Additional Past Surgical History / Comment(s): thyroid nodules Past Anesthesia/Blood Transfusion Reactions: No Reported Reaction Past Psychological History: No Psychological Hx Reported Smoking Status: Never smoker General Exam Limitations: no limitations General appearance: alert, in no apparent distress Eye exam: Present: normal appearance, PERRL, EOMI. Absent: scleral icterus, conjunctival injection, periorbital swelling Respiratory exam: Present: normal lung sounds bilaterally. Absent: respiratory distress, wheezes, rales, rhonchi, stridor Cardiovascular Exam: Present: regular rate, normal rhythm, normal heart sounds. Absent: systolic murmur, diastolic murmur, rubs, gallop, clicks GI/Abdominal exam: Present: soft, tenderness (Superpubic), normal bowel sounds. Absent: distended, guarding, rebound, rigid Back exam: Present: normal inspection Neurological exam: Present: alert, oriented X3, CN II-XII intact Psychiatric exam: Present: normal affect, normal mood Skin exam: Present: warm, dry, intact, normal color. Absent: rash Course Vital Signs 03/02/23 03/02/23 10:44 13:25 Temperature 97.7 F 98 F Pulse Rate 55 L 54 L Respiratory 16 18 Rate Blood Pressure 143/69 159/75 O2 Sat by Pulse 98 99 Oximetry Medical Decision Making - Medical Decision Making Was pt. sent in by a medical professional or institution (, PA, MANAGER FIXED INCOME, urgent care, hospital, or skilled nursing...) When possible be specific @ -No Did you speak to anyone other than the patient for history (EMS, parent, family, police, friend...)? What history was obtained from this source @ -No Did you review nursing and triage notes (agree or disagree)? Why? @ -I reviewed and agree with nursing and triage notes Were old charts reviewed (outside hosp., previous admission, EMS record, old EKG, old radiological studies, urgent care reports/EKG's, skilled nursing records)? Report findings @ -No old charts were reviewed Differential Diagnosis (chest pain, altered mental status, abdominal pain women, abdominal pain men, vaginal bleeding, weakness, fever, dyspnea, syncope, headache, dizziness, GI bleed, back pain, seizure, CVA, palpatations, mental health, musculoskeletal)? @ -Differential Back Pain: Strain, zoster, cauda equina syndrome, epidural abscess, vertebral osteomyelitis, discitis, fracture, subluxation, disc herniation, DJD, spinal stenosis, dissection, AAA, pancreatitis, peptic ulcer disease, pyelonephritis, kidney stone, this is not meant to be an all-inclusive list. EKG interpreted by me (3pts min.). @ -None done X-rays interpreted by me (1pt min.). @ -Lumbar spine shows mild superior endplate compression deformity of indeterminate age of L3. Bilateral hip with AP pelvis shows no acute process. CT interpreted by me (1pt min.). @ -CT abdomen and pelvis shows some air in the bladder. There is distal colonic diverticulosis. U/S interpreted by me (1pt. min.). @ -None done What testing was considered but not performed or refused? (CT, X-rays, U/S, labs)? Why? @ -None What meds were considered but not given or refused? Why? @ -None Did you discuss the management of the patient with other professionals (professionals i.e. , PA, MANAGER FIXED INCOME, lab, RT, psych nurse, addiction social worker, safety leader, teacher, compliance officer, field nurse case manager)? Give summary @ -No Was smoking cessation discussed for >3mins.? @ -No Was critical care preformed (if so, how long)? @ -No Were there social determinants of health that impacted care today? How? (Homelessness, low income, unemployed, alcoholism, drug addiction, dunn sportation, low edu. Level, literacy, decrease access to med. care, care home, rehab)? @ -No Was there de-escalation of care discussed even if they declined (Discuss DNR or withdrawal of care, Hospice)? DNR status @ -No What co-morbidities impacted this encounter? (DM, HTN, Smoking, COPD, CAD, Cancer, CVA, ARF, Chemo, Hep., AIDS, mental health diagnosis, sleep apnea, morbid obesity)? @ -None Was patient admitted / discharged? Hospital course, mention meds given and route, prescriptions, significant lab abnormalities, going to OR and other pertinent info. @ -Discharge. Patient is 77-year-old female presented ER with chief complaint of back pain. Vital stable. Labs are significant for white blood cell count 11.6, AST 39. X-rays show a mild superior endplate compression deformity of L3. Patient states she sees a chiropractor and this is being monitored. Since patient was complaining of suprapubic pressure and pain that is somewhat relieved with urination. UA and CT abdomen and pelvis was performed. Urinalysis unremarkable. CT abdomen and pelvis shows some air in the bladder possibly consistent with self-catheterization. Patient denies catheterization. There is also distal colonic diverticulosis present. Patient received by mouth Motrin for pain control. Patient states that her pain is better after Motrin. I discussed lab and imaging findings with patient. I advised her to follow-up with her PCP for an outpatient workup. Return parameters were discussed. Patient will be discharged stable condition with follow-up to PCP. Patient exp ressed understanding and agreement with care plan. Undiagnosed new problem with uncertain prognosis? @ -No Drug Therapy requiring intensive monitoring for toxicity (Heparin, Nitro, Insulin, Cardizem)? @ -No Were any procedures done? @ -No Diagnosis/symptom? @ -Abdominal pain/back pain Acute, or Chronic, or Acute on Chronic? @ -Acute Uncomplicated (without systemic symptoms) or Complicated (systemic symptoms)? @ -Uncomplicated Side effects of treatment? @ -No Exacerbation, Progression, or Severe Exacerbation? @ -No Poses a threat to life or bodily function? How? (Chest pain, USA, ID, pneumonia, PE, COPD, DKA, ARF, appy, cholecystitis, CVA, Diverticulitis, Homicidal, Alyssa cidal, threat to staff... and all critical care pts) @ -No - Lab Data Result diagrams: 03/02/23 12:13 03/02/23 12:13 Lab Results 03/02/23 03/02/23 03/02/23 Range/Units 11:07 12:13 12:13 WBC 11.6 H (3.8-10.6) k/uL RBC 4.13 (3.80-5.40) m/uL Hgb 13.4 (11.4-16.0) gm/dL Hct 39.3 (34.0-46.0) % MCV 95.2 (80.0-100.0) fL MCH 32.5 (25.0-35.0) pg MCHC 34.2 (31.0-37.0) g/dL RDW 13.0 (11.5-15.5) % Plt Count 321 (150-450) k/uL MPV 8.1 Sodium 140 (137-145) mmol/L Potassium 4.5 (3.5-5.1) mmol/L Chloride 107 (98-107) mmol/L Carbon Dioxide 19 L (22-30) mmol/L Anion Gap 14 mmol/L BUN 14 (7-17) mg/dL Creatinine 0.65 (0.52-1.04) mg/dL Est GFR (CKD-EPI)AfAm >90 (>60 ml/min/1.73 sqM) Est GFR (CKD-EPI)NonAf 85 (>60 ml/min/1.73 sqM) Glucose 140 H (74-99) mg/dL Plasma Lactic Acid Leo (0.7-2.0) mmol/L Calcium 10.0 (8.4-10.2) mg/dL Total Bilirubin 0.9 (0.2-1.3) mg/dL AST 39 H (14-36) U/L ALT 27 (4-34) U/L Alkaline Phosphatase 89 (38-126) U/L Total Protein 7.9 (6.3-8.2) g/dL Albumin 4.4 (3.5-5.0) g/dL Amylase 58 (30-110) U/L Lipase 79 (23-300) U/L Urine Color Light Yellow Urine Appearance Clear (Clear) Urine pH 5.5 (5.0-8.0) Ur Specific [place] 1.013 (1.001-1.035) Urine Protein Negative (Negative) Urine Glucose (UA) Negative (Negative) Urine Ketones Negative (Negative) Urine Blood Negative (Negative) Urine Nitrite Negative (Negative) Urine Bilirubin Negative (Negative) Urine Urobilinogen <2.0 (<2.0) mg/dL Ur Leukocyte Esterase Negative (Negative) 03/02/23 Range/Units 12:13 WBC (3.8-10.6) k/uL RBC (3.80-5.40) m/uL Hgb (11.4-16.0) gm/dL Hct (34.0-46.0) % MCV (80.0-100.0) fL MCH (25.0-35.0) pg MCHC (31.0-37.0) g/dL RDW (11.5-15.5) % Plt Count (150-450) k/uL MPV Sodium (137-145) mmol/L Potassium (3.5-5.1) mmol/L Chloride (98-107) mmol/L Carbon Dioxide (22-30) mmol/L Anion Gap mmol/L BUN (7-17) mg/dL Creatinine (0.52-1.04) mg/dL Est GFR (CKD-EPI)AfAm (>60 ml/min/1.73 sqM) Est GFR (CKD-EPI)NonAf (>60 ml/min/1.73 sqM) Glucose (74-99) mg/dL Plasma Lactic Acid Leo 1.6 (0.7-2.0) mmol/L Calcium (8.4-10.2) mg/dL Total Bilirubin (0.2-1.3) mg/dL AST (14-36) U/L ALT (4-34) U/L Alkaline Phosphatase (38-126) U/L Total Protein (6.3-8.2) g/dL Albumin (3.5-5.0) g/dL Amylase (30-110) U/L Lipase (23-300) U/L Urine Color Urine Appearance (Clear) Urine pH (5.0-8.0) Ur Specific [place] (1.001-1.035) Urine Protein (Negative) Urine Glucose (UA) (Negative) Urine Ketones (Negative) Urine Blood (Negative) Urine Nitrite (Negative) Urine Bilirubin (Negative) Urine Urobilinogen (<2.0) mg/dL Ur Leukocyte Esterase (Negative) - Radiology Data Radiology results: report reviewed, image reviewed Disposition Clinical Impression: Back pain Disposition: HOME SELF-CARE Condition: Stable Instructions (If sedation given, give patient instructions): Acute Low Back Pain (ED) Additional Instructions: Please follow-up with her primary care physician. Please return to the ER for any new or worsening symptoms. Is patient prescribed a controlled substance at d/c from ED?: No Referrals: Wayne Rivero MD [Primary Care Provider] - 1-2 days Ash Meier MD [STAFF PHYSICIAN] - 1-2 days Time of Disposition: 14:10
[2023-03-02 11:27] LABS: Appearance,Urine Clear (Clear); Bilirubin,Urine Negative (Negative); Blood,Urine Negative (Negative); Color,Urine Light Yellow; Glucose,Urine (UA) Negative (Negative); Ketones,Urine Negative (Negative); Leukocyte Esterase,Urine Negative (Negative); Nitrite,Urine Negative (Negative); PH, Urine 5.5 (5.0-8.0); Protein,Urine Negative (Negative); Specific Gravity,Urine 1.013 (1.001-1.035); Urobilinogen,Urine <2.0 mg/dL (<2.0)
--- NOTE | 2023-03-02 11:46 | XR ---
EXAMINATION TYPE: XR lumbar spine 2 or 3V DATE OF EXAM: 03/02/2023 COMPARISON: None HISTORY: Pain TECHNIQUE: 3 view lumbar spine FINDINGS: There is narrowing of disc height L4-5. Some mild superior endplate compression deformity i s present L3. This is indeterminate age. There is a compression deformity of superior endplate T12 wi th approximately 30% loss of anterior vertebral body height. This is an old deformity present 2020. Vertebral body alignment is preserved. Remaining disc heights and vertebral body heights are preserve d. IMPRESSION: 1. Degenerative disc disease L4-5. 2. Mild superior endplate compression deformity of indeterminate age L3
--- NOTE | 2023-03-02 11:47 | XR ---
EXAMINATION TYPE: XR Hip Bilateral and AP pelvis DATE OF EXAM: 03/02/2023 COMPARISON: None HISTORY: Bilateral hip pain x1 week TECHNIQUE: Bilateral hips examined in 2 projections each supplemented with an AP pelvis. FINDINGS: Femoral heads articulate with the acetabulum. No acute fractures or dislocations are eviden t. Symphysis pubis and sacroiliac joints are normal. Normal bowel gas is present. Follow up exams can be performed as clinically indicated. IMPRESSION: 1. No acute osseous abnormality bilateral hips.
[2023-03-02 12:35] LABS: HCT 39.3 % (34.0-46.0); HGB 13.4 gm/dL (11.4-16.0); MCH 32.5 pg (25.0-35.0); MCHC 34.2 g/dL (31.0-37.0); MCV 95.2 fL (80.0-100.0); Mean Platelet Volume 8.1; Platelet Count 321 k/uL (150-450); RBC 4.13 m/uL (3.80-5.40); WBC 11.6 k/uL (3.8-10.6)
[2023-03-02 12:45] LABS: ALT 27 U/L (4-34); African American GFR (CKD) >90 (>60 ml/min/1.73 sqM); Albumin 4.4 g/dL (3.5-5.0); Amylase 58 U/L (30-110); Anion Gap 14 mmol/L; Blood Urea Nitrogen 14 mg/dL (7-17); Carbon Dioxide 19 mmol/L (22-30); Chloride 107 mmol/L (98-107); Glucose 140 mg/dL (74-99); Lipase 79 U/L (23-300); Non-African American GFR(CKD) 85 (>60 ml/min/1.73 sqM); Sodium 140 mmol/L (137-145); Total Bilirubin 0.9 mg/dL (0.2-1.3)
[2023-03-02 12:52] LABS: Potassium 4.5 mmol/L (3.5-5.1)
[2023-03-02 12:53] LABS: AST 39 U/L (14-36); Alkaline Phosphatase 89 U/L (38-126); Total Protein 7.9 g/dL (6.3-8.2)
[2023-03-02 13:34] VITALS: BP 159/75; PULSE 54; RESP 18; TEMP 98
--- NOTE | 2023-03-02 13:40 | CT ---
EXAMINATION TYPE: CT abdomen pelvis wo con DATE OF EXAM: 03/02/2023 HISTORY: Abdominal pain x [address] DLP: 549.3 mGycm. Automated Exposure Control for Dose Reduction was Utilized. TECHNIQUE: CT scan of the abdomen and pelvis is performed without oral or IV contrast. COMPARISON: Prior CT abdomen and pelvis February 04, 2015 FINDINGS: Within the limitations of a non-contrast study, the following observations are made. LUNG BASES: No significant abnormality is appreciated. LIVER/GB: Cholecystectomy clips are present. PANCREAS: No significant abnormality is seen. SPLEEN: No significant abnormality is seen. ADRENALS: No significant abnormality is seen. KIDNEYS: Few foci of air within bladder. BOWEL: Sigmoid colonic diverticula redemonstrated. No CT evidence for acute diverticulitis GENITAL ORGANS: No gross abnormality seen. LYMPH NODES: No greater than 1cm abdominal or pelvic lymph nodes are appreciated. OSSEOUS STRUCTURES: Moderate disc space narrowing at L4-L5 level. OTHER: Mild calcified plaque of aortic stents into branch vessels. Stable small fat-containing umbili marlena hernia. IMPRESSION: 1. Some foci of air in the bladder, correlate clinically for recent catheterization otherwise other e tiologies such as fistula need to be considered. 2. Distal colonic diverticulosis. No convincing CT evidence for acute diverticulitis. No acute findin gs otherwise clearly identified.
== END 2023-03-02 14:20 | disposition home or self-care (01) ==
LOC: EC 10:26
DX: M51.36 Other intervertebral disc degeneration, lumbar region (principal); I10 Essential (primary) hypertension; Z79.899 Other long term (current) drug therapy; Z88.5 Allergy status to narcotic agent; Z88.0 Allergy status to penicillin; Z88.2 Allergy status to sulfonamides; Z88.1 Allergy status to other antibiotic agents; Z91.041 Radiographic dye allergy status; Z88.8 Allergy status to other drugs, medicaments and biological substances
CPT/HCPCS: 36415; 72100; 73521; 74176; 80053; 81003; 82150; 83605; 83690; 85027; 99284

== ENCOUNTER 2024-08-19 09:59 | Inpatient (IN) | payer MEDICARE ==
--- NOTE | 2024-08-19 10:43 | ED ---
General Adult HPI - General Source: family, RN notes reviewed Mode of arrival: wheelchair <Latrice Huang - Last Filed: 08/19/24 10:41> <Jf Carlton - Last Filed: 08/19/24 14:03> - General Stated complaint: Back injury Time Seen by Provider: 08/19/24 10:41 - History of Present Illness Initial comments: Quick note: 79-year-old female presented the ER for evaluation of back pain. Family provided majority of HPI. They state patient has severe low back pain and follows up with Dr. Del Real regarding this. Patient had MRI completed in his 3 known fractures. Over the last week patient has had increased dose of [place] from 7.5 to 10. Family reports over the past 24 hours patient appears to be hallucinating and believes dosing may be too strong for patient. (Latrice Huang) Sent in for evaluation of hallucination, altered mental status from Dr. Del Real's office. Patient is on increased dose of [place] as well as Flexeril. Over the past 3 days she has been hallucinating has been confused after this medication change. She is also being treated for urinary tract infection and recently had antibiotic changed yesterday. (Jf Carlton) - Related Data Home Medications Medication Instructions Recorded Confirmed Pioglitazone [Actos] 30 mg PO DIRECTED 02/09/22 02/09/22 Propranolol HCl [Propranolol HCl 160 mg PO BID@0600,1800 02/09/22 02/09/22 ER] Previous Rx's Medication Instructions Recorded traMADol HCL 50 mg PO Q6H 3 Days #12 tab 02/09/22 Allergies Allergy/AdvReac Type Severity Reaction Status Date / Time Iodinated Contrast Media Allergy Severe Dyspnea Verified 03/02/23 10:44 naproxen [From Aleve] Allergy Unknown Unknown Verified 03/02/23 10:44 codeine Allergy Rash/Hives Verified 03/02/23 10:44 Penicillins Allergy Rash/Hives Verified 03/02/23 10:44 Sulfa (Sulfonamide Allergy Rash/Hives Verified 03/02/23 10:44 Antibiotics) levofloxacin AdvReac Unknown Verified 03/02/23 10:44 Review of Systems ROS Other: All systems not noted in ROS Statement are negative. <Latrice Huang - Last Filed: 08/19/24 10:41> ROS Other: All systems not noted in ROS Statement are negative. <Jf Carlton - Last Filed: 08/19/24 14:03> ROS Statement: Those systems with pertinent positive or pertinent negative responses have been documented in the HPI. Past Medical History Past Medical History: Hypertension, Thyroid Disorder Additional Past Medical History / Comment(s): tremors History of Any Multi-Drug Resistant Organisms: None Reported Past Surgical History: Appendectomy, Cholecystectomy, Hysterectomy Additional Past Surgical History / Comment(s): thyroid nodules Past Anesthesia/Blood Transfusion Reactions: No Reported Reaction Past Psychological History: No Psychological Hx Reported Smoking Status: Never smoker <Latrice Huang - Last Filed: 08/19/24 10:41> General Exam <Latrice Huang - Last Filed: 08/19/24 10:41> General appearance: in no apparent distress, lethargic Head exam: Present: atraumatic, normocephalic Eye exam: Present: normal appearance, PERRL ENT exam: Present: normal exam Respiratory exam: Present: normal lung sounds bilaterally. Absent: respiratory distress, wheezes Cardiovascular Exam: Present: regular rate, normal rhythm GI/Abdominal exam: Present: soft. Absent: distended, tenderness Neurological exam: Absent: oriented X3 Skin exam: Present: warm, dry, intact. Absent: cyanosis, diaphoretic <Jf Carlton - Last Filed: 08/19/24 14:03> - General Exam Comments Initial Comments: Visual Physical Exam Vital signs reviewed General: Altered, no signs of acute respiratory distress Head: Normocephalic, atraumatic Eyes: PERRLA, EOMI ENT: Airway patent Chest: Nonlabored breathing Skin: No visual rash, normal skin tone Neuro: Alert Musculoskeletal: No gross abnormalities (Latrice Huang) Course Vital Signs 08/19/24 08/19/24 11:12 12:26 Temperature 97.4 F L Pulse Rate 86 96 Respiratory 22 16 Rate Blood Pressure 127/86 121/62 O2 Sat by Pulse 98 91 L Oximetry Medical Decision Making <Latrice Huang - Last Filed: 08/19/24 10:41> - Lab Data Result diagrams: 08/19/24 12:10 08/19/24 12:10 <Jf Carlton - Last Filed: 08/19/24 14:03> - Medical Decision Making I performed the quick note portion of this chart. Electronically signed by Latrice Huang PA-C (Latrice Huang) Was pt. sent in by a medical professional or institution (REBEKAH Bowens, NETWORKING ADMINISTRATOR, urgent care, hospital, or [place] health care facility...) When possible be specific @ -No Did you speak to anyone other than the patient for history (EMS, parent, family, police, friend...)? What history was obtained from this source @ -No Did you review nursing and triage notes (agree or disagree)? Why? @ -I reviewed and agree with nursing and triage notes Were old charts reviewed (outside hosp., previous admission, EMS record, old EKG, old radiological studies, urgent care reports/EKG's, [place] health [facility] facility records)? Report findings @ -No old charts were reviewed Differential Altered Mental Status: Hypoglycemia, DKA, hypercapnia, ETOH, overdose, CO poisoning, trauma, myxedema coma, HTN encephalopathy, infection, encephalitis, psychosis, intercranial hemorrhage, hepatic encephalopathy, meningitis, CVA, this is not meant to be an all-inclusive list EKG interpreted by me (3pts min.). @Sinus rhythm low voltage rate of 79, MN interval 192, QRS duration 67, QTc 396. X-rays interpreted by me (1pt min.). @ -None done CT interpreted by me (1pt min.). @ -None done U/S interpreted by me (1pt. min.). @ -None done What testing was considered but not performed or refused? (CT, X-rays, U/S, labs)? Why? @ -None What meds were considered but not given or refused? Why? @ -None Did you discuss the management of the patient with other professionals (professionals i.e. REBEKAH Bowens, NETWORKING ADMINISTRATOR, lab, RT, psych nurse, social service liaison, finisher wallboard and plasterboard, teacher, homicide squad commanding officer, employment case manager)? Give summary @Patient mated to Dr. Walker who is able to see the patient in the emergency department Was smoking cessation discussed for >3mins.? @ -No Was critical care preformed (if so, how long)? @ -No Were there social determinants of health that impacted care today? How? (Homelessness, low income, unemployed, alcoholism, drug addiction, transportation, low edu. Level, literacy, decrease access to med. care, care home, rehab)? @ -No Was there de-escalation of care discussed even if they declined (Discuss DNR or withdrawal of care, Hospice)? DNR status @ -No What co-morbidities impacted this encounter? (DM, HTN, Smoking, COPD, CAD, Cancer, CVA, ARF, Chemo, Hep., AIDS, mental health diagnosis, sleep apnea, morbid obesity)? @ -None Was patient admitted / discharged? Hospital course, mention meds given and route, prescriptions, significant lab abnormalities, going to OR and other pertinent info. @Altered mental status, possible drug effect versus UTI. Admitted to internal medicine. Undiagnosed new problem with uncertain prognosis? @ -No Drug Therapy requiring intensive monitoring for toxicity (Heparin, Nitro, Insulin, Cardizem)? @ -No Were any procedures done? @ -No Diagnosis/symptom? @Altered mental status Acute, or Chronic, or Acute on Chronic? @ -[Acute Uncomplicated (without systemic symptoms) or Complicated (systemic symptoms)? @ -Complicated Side effects of treatment? @ -No Exacerbation, Progression, or Severe Exacerbation? @ -No Poses a threat to life or bodily function? How? (Chest pain, USA, [place], pneumonia, PE, COPD, DKA, ARF, appy, cholecystitis, CVA, Diverticulitis, Homicidal, Suicidal, threat to staff... and all critical care pts) @ -Yes, acute delirium (Jf Carlton) - Lab Data Lab Results 08/19/24 08/19/24 Range/Units 12:10 12:10 WBC 7.91 (4.50-10.00) 10*3/uL RBC 4.31 (4.10-5.20) 10*6/uL Hgb 14.2 (12.0-15.0) g/dL Hct 41.9 (37.2-46.3) % MCV 97.2 H (80.0-97.0) fL MCH 32.9 H (27.0-32.0) pg MCHC 33.9 (32.0-37.0) g/dL Plt Count 191 (140-440) 10*3/uL MPV 9.7 (9.5-12.2) fL Immature Gran % (Auto) 0.3 % Neutrophils % 83.5 % Lymphocytes % 10.4 % Monocytes % 4.6 % Eosinophils % 1.1 % Basophils % 0.1 % Immature Gran # 0.02 (0.00-0.04) 10*3/uL Neutrophils # 6.61 (1.80-7.70) 10*3/uL Lymphocytes # 0.82 L (0.90-5.00) 10*3/uL Monocytes # 0.36 (0.20-1.00) 10*3/uL Eosinophils # 0.09 (0.04-0.35) 10*3/uL Basophils # 0.01 (0.00-0.10) 10*3/uL Sodium 136 L (137-145) mmol/L Potassium 5.5 H (3.5-5.1) mmol/L Chloride 102 (98-107) mmol/L Carbon Dioxide 21 L (22-30) mmol/L Anion Gap 13 mmol/L BUN 32 H (7-17) mg/dL Creatinine 0.81 (0.52-1.04) mg/dL Est GFR (CKD-EPI)AfAm 79 (>60 ml/min/1.73 sqM) Est GFR (CKD-EPI)NonAf 69 (>60 ml/min/1.73 sqM) Glucose 230 H (74-99) mg/dL Calcium 10.1 (8.4-10.2) mg/dL Total Bilirubin 2.1 H (0.2-1.3) mg/dL AST 63 H (14-36) U/L ALT 46 H (4-34) U/L Alkaline Phosphatase 206 H (38-126) U/L Total Protein 7.2 (6.3-8.2) g/dL Albumin 4.2 (3.5-5.0) g/dL Disposition <Latrice Huang - Last Filed: 08/19/24 10:41> Is patient prescribed a controlled substance at d/c from ED?: No Time of Disposition: 14:03 <Jf Carlton - Last Filed: 08/19/24 14:03> Clinical Impression: Altered mental status Disposition: ADMITTED IP TO THIS HOSP Condition: Stable Referrals: Wayne Rivero MD [Primary Care Provider] - 1-2 days
[2024-08-19 12:20] LABS: Basophils # (A) 0.01 10*3/uL (0.00-0.10); Basophils % (A) 0.1 %; Eosinophils # (A) 0.09 10*3/uL (0.04-0.35); Eosinophils % (A) 1.1 %; HCT 41.9 % (37.2-46.3); HGB 14.2 g/dL (12.0-15.0); Lymphocytes # (A) 0.82 10*3/uL (0.90-5.00); Lymphocytes % (A) 10.4 %; MCH 32.9 pg (27.0-32.0); MCHC 33.9 g/dL (32.0-37.0); MCV 97.2 fL (80.0-97.0); Monocytes # (A) 0.36 10*3/uL (0.20-1.00); Monocytes % (A) 4.6 %; Neutrophils # (A) 6.61 10*3/uL (1.80-7.70); Neutrophils % (A) 83.5 %; Platelet Count 191 10*3/uL (140-440); RBC 4.31 10*6/uL (4.10-5.20); RDW 13.1 % (11.5-14.5); WBC 7.91 10*3/uL (4.50-10.00)
[2024-08-19 12:41] LABS: ALT 46 U/L (4-34); African American GFR (CKD) 79 (>60 ml/min/1.73 sqM); Albumin 4.2 g/dL (3.5-5.0); Anion Gap 13 mmol/L; Blood Urea Nitrogen 32 mg/dL (7-17); Calcium 10.1 mg/dL (8.4-10.2); Carbon Dioxide 21 mmol/L (22-30); Chloride 102 mmol/L (98-107); Glucose 230 mg/dL (74-99); Non-African American GFR(CKD) 69 (>60 ml/min/1.73 sqM); Sodium 136 mmol/L (137-145); Total Protein 7.2 g/dL (6.3-8.2)
[2024-08-19 12:43] LABS: AST 63 U/L (14-36); Potassium 5.5 mmol/L (3.5-5.1)
[2024-08-19 12:44] LABS: Alkaline Phosphatase 206 U/L (38-126)
[2024-08-19] MEDS ORDERED: NALOXONE 0.4 MG/ML 1 ML VIAL IV PRN (13:59)
[2024-08-19] MEDS ORDERED: IBUPROFEN 400 MG TAB PO PRN (13:59)
--- NOTE | 2024-08-19 14:17 | P.HPIM ---
History of Present Illness 79-year-old female was brought in by family members because of altered mental status. Patient is well-known to me for her from her prolonged hospitalization at [facility] where she was treated for compression fractures. Patient was sent home on increased dose of Kemp along with cyclobenzaprine dose of which was recently increased after the dose of cyclobenzaprine was increased patient started having confusional episodes and was lethargic. Patient was believed to have a UTI because of her back pain although patient does not have any other symptoms of UTI patient does not have leukocytosis does not have any fever patient was recently started on antibiotic considering that back pain as a UTI. Patient denies any dysuria or increased urgency or frequency. Patient has mild elevated potassium but this is hemolyzed sample. Patient is alert oriented but still confused REVIEW OF SYSTEMS: All other systems are negative except those mentioned in the HPI PHYSICAL EXAMINATION: GENERAL: The patient is alert and oriented x2, not in any acute distress. Well developed, well nourished. HEENT: Pupils are round and equally reacting to light. EOMI. No scleral icterus. No conjunctival pallor. Normocephalic, atraumatic. No pharyngeal erythema. No thyromegaly. CARDIOVASCULAR: S1 and S2 present. No murmurs, rubs, or gallops. PULMONARY: Chest is clear to auscultation, no wheezing or crackles. ABDOMEN: Soft, nontender, nondistended, normoactive bowel sounds. No palpable organomegaly. MUSCULOSKELETAL: No joint swelling or deformity. EXTREMITIES: No cyanosis, clubbing, or pedal edema. NEUROLOGICAL: Gross neurological examination did not reveal any focal deficits. SKIN: No rashes. Assessment and plan -Altered mental status medication use mostly because of cyclobenzaprine which will be held, Kemp will be held as well. Patient will be monitored overnight will use nonsteroidal anti-inflammatory medications and steroidal anti- inflammatory medications for pain. -Asymptomatic bacteriuria: I do not believe patient has urinary tract infection her back pain is secondary to compression fractures will hold off on any antibiotics at this time. - Compression fractures, lower back pain: Pain management as mentioned above avoid opiates, anticholinergic medications, benzodiazepines, barbiturates, muscle relaxers. Will use Decadron/Motrin for pain physical therapy Occupational Therapy consultation - Type 2 diabetes mellitus patient restarted sliding scale insulin medications are not verified yet once they are verified patient will be resumed on home medications - Essential tremor for which patient is on propranolol which will be resumed -Hyperkalemia secondary to hemolysis will repeat potassium tomorrow DVT prophylaxis: Lovenox Past Medical History Past Medical History: Hypertension, Thyroid Disorder Additional Past Medical History / Comment(s): tremors History of Any Multi-Drug Resistant Organisms: None Reported Past Surgical History: Appendectomy, Cholecystectomy, Hysterectomy Additional Past Surgical History / Comment(s): thyroid nodules Past Anesthesia/Blood Transfusion Reactions: No Reported Reaction Past Psychological History: No Psychological Hx Reported Smoking Status: Never smoker Medications and Allergies Home Medications Medication Instructions Recorded Confirmed Type Pioglitazone [Actos] 30 mg PO DIRECTED 02/09/22 02/09/22 History Propranolol HCl [Propranolol HCl 160 mg PO BID@0600,1800 02/09/22 02/09/22 History ER] traMADol HCL 50 mg PO Q6H 3 Days #12 tab 02/09/22 Rx Allergies Allergy/AdvReac Type Severity Reaction Status Date / Time Iodinated Contrast Media Allergy Severe Dyspnea Verified 03/02/23 10:44 naproxen [From Aleve] Allergy Unknown Unknown Verified 03/02/23 10:44 codeine Allergy Rash/Hives Verified 03/02/23 10:44 Penicillins Allergy Rash/Hives Verified 03/02/23 10:44 Sulfa (Sulfonamide Allergy Rash/Hives Verified 03/02/23 10:44 Antibiotics) levofloxacin AdvReac Unknown Verified 03/02/23 10:44 Physical Exam Vitals: Vital Signs Temp Pulse Resp BP Pulse Ox 08/19/24 12:26 96 16 121/62 91 L 08/19/24 11:12 97.4 F L 86 22 127/86 98 Intake and Output 08/18/24 08/19/24 08/19/24 22:59 06:59 14:59 Other: Weight 67.132 kg Results CBC & Chem 7: 08/19/24 12:10 08/19/24 12:10 Labs: Abnormal Lab Results - Last 24 Hours (Table) 08/19/24 08/19/24 Range/Units 12:10 12:10 MCV 97.2 H (80.0-97.0) fL MCH 32.9 H (27.0-32.0) pg Lymphocytes # 0.82 L (0.90-5.00) 10*3/uL Sodium 136 L (137-145) mmol/L Potassium 5.5 H (3.5-5.1) mmol/L Carbon Dioxide 21 L (22-30) mmol/L BUN 32 H (7-17) mg/dL Glucose 230 H (74-99) mg/dL Total Bilirubin 2.1 H (0.2-1.3) mg/dL AST 63 H (14-36) U/L ALT 46 H (4-34) U/L Alkaline Phosphatase 206 H (38-126) U/L
[2024-08-19] MEDS: ACETAMINOPHEN TAB 325 MG TAB PO PRN (15:16)
[2024-08-19] MEDS: SODIUM CHLORIDE 0.9% 1,000 ML IV SCH (15:17)
[2024-08-19 17:22] LABS: Glucose,Whole Blood 173 mg/dL (70-110)
[2024-08-19] MEDS: INSULIN LISPRO (HumaLOG) 100 UNIT/ML 10 mL VL SQ SCH (18:04)
[2024-08-19 21:50] LABS: Glucose,Whole Blood 147 mg/dL (70-110)
[2024-08-19] MEDS: KETOROLAC 15 MG/ML 1 ML VIAL IVP PRN (23:31)
[2024-08-20 07:13] LABS: Glucose,Whole Blood 141 mg/dL (70-110)
[2024-08-20] MEDS: PROPRANOLOL 120 MG PO SCH (08:00)
[2024-08-20] MEDS: ENOXAPARIN 40 MG/0.4 ML SYRINGE SQ SCH (08:01)
[2024-08-20 08:08] LABS: HCT 34.4 % (37.2-46.3); HGB 11.1 g/dL (12.0-15.0); MCH 32.0 pg (27.0-32.0); MCHC 32.3 g/dL (32.0-37.0); MCV 99.1 FL (80.0-97.0); NRBC Per 100 WBC 0 X 10*3/uL (0.00-0.01); Platelet Count 166 X 10*3/uL (140-440); RBC 3.47 X 10*6/uL (4.10-5.20); RDW 13.3 % (11.5-14.5); WBC 6.42 X 10*3/uL (4.50-10.00)
[2024-08-20 08:33] LABS: Anion Gap 11.20 mmol/L (4.00-12.00); BUN/Creat Ratio 39.29 Ratio (12.00-20.00); Blood Urea Nitrogen 27.5 mg/dL (9.0-27.0); Calcium 8.6 mg/dL (8.7-10.3); Carbon Dioxide 21.8 mmol/L (21.6-31.8); Chloride 102 mmol/L (96-109); Glucose 153 mg/dL (70-110); Potassium 4.2 mmol/L (3.5-5.5); Sodium 135 mmol/L (135-145)
--- NOTE | 2024-08-20 11:53 | P.CNOR ---
History of Present Illness - [facility] Consult date: 08/13/24 Requesting physician: Jf Carlton Consult reason: fracture (T11, L2, and L3 compression fracture), low back pain History of present illness: Patient is a pleasant 79-year-old female known to our service who is seen examined at bedside for further evaluation of her thoracic or lumbar spine. She was recently seen in our office yesterday on 08/19/2024. She is known to have compression fracture deformities of T11, L2, and L3. She was being treated for compression fracture deformity in the outpatient setting. Patient was recently admitted to [facility] for evaluation of kidney stones. Patient was not found to have kidney stones. She was admitted for 2 weeks. During this time her back pain significantly worsened. Multiple imaging modalities were taken during her admission to [facility]. MRI imaging was reviewed in our office yesterday. She was found to have multiple compression fracture deformities again stated at T11, L2, and L3. Patient had been progressing over time for her treatment of compression fracture deformity before her symptoms significantly worsened during her admission to [facility]. Patient currently denies lower extremity weakness or radiculopathy bilaterally. Her pain stays at her thoracic or lumbar spine. Her pain is better controlled while at rest. Her pain is exacerbated with any movements of her spine. Patient declined bracing in the outpatient setting. She declines bracing today. She presented to the emergency department for further evaluation of her back pain. Family had stated patient was having hallucinations and confusion as well. Patient's daughter states patient was discharged home from [facility] with hydrocodone 7.5 mg / 325 mg. She follow-up with her primary care provider and this medication was changed to hydrocodone 10 mg / 325 mg with the addition of a muscle relaxer. With the combination of these medications, patient became significantly confused. She presented to the emergency department for further evaluation. Patient states she does not remember yesterday. She still is somewhat confused but is able to answer questions at the bedside. Patient's daughter is also present at the bedside who is answering questions. Patient is currently resting comfortably in bed flat on her back. Thoracic and lumbar x-ray imaging has been ordered and are pending. She is admitted to medicine who is seeing the patient for her other medical diagnoses. The patient is seen and examined. I agree with the above dictation. Her new images again show the fractures at T11 L2 and L2-3. They appear to be relatively stable. She was not able to tolerate the brace and she is declining activity but I think that we need some physical therapy to try to help her better mobilize and get up to a chair if she is able. We will have physical therapy see her. She will continue her pain management regimen. She will continue medical management. She is making some progress in terms of her mentation as she has been off the muscle relaxant. Will continue to follow her closely. Past Medical History Past Medical History: Diabetes Mellitus, Hypertension, Thyroid Disorder Additional Past Medical History / Comment(s): tremors, compression fractures in spine History of Any Multi-Drug Resistant Organisms: None Reported Past Surgical History: Appendectomy, Cholecystectomy, Hysterectomy Additional Past Surgical History / Comment(s): thyroid nodules Past Anesthesia/Blood Transfusion Reactions: No Reported Reaction Past Psychological History: No Psychological Hx Reported Smoking Status: Former smoker Past Alcohol Use History: None Reported Additional Past Alcohol Use History / Comment(s): smoked in 20's. Past Drug Use History: None Reported Medications and Allergies Home Medications Medication Instructions Recorded Confirmed Type Cyclobenzaprine [Flexeril] 10 mg PO BID PRN 08/19/24 08/19/24 History HYDROcodone/APAP 10-325MG [Letcher 1 tab PO Q6H 08/19/24 08/19/24 History 10-325] Nitrofurantoin Monohyd/M-Cryst 100 mg PO BID 08/19/24 08/19/24 History [Macrobid] Ondansetron Odt [Zofran Odt] 4 mg PO DIRECTED PRN 08/19/24 08/19/24 History Phenazopyridine [Pyridium] 100 mg PO TID PRN 08/19/24 08/19/24 History Propranolol HCl [Propranolol HCl 120 mg PO BID 08/19/24 08/19/24 History ER] Sennosides 8.6 mg PO DAILY PRN 08/19/24 08/19/24 History polyethylene glycoL 3350 [Miralax] 17 gm PO DAILY PRN 08/19/24 08/19/24 History Allergies Allergy/AdvReac Type Severity Reaction Status Date / Time Iodinated Contrast Media Allergy Severe Dyspnea Verified 08/19/24 15:08 naproxen [From Aleve] Allergy Unknown Unknown Verified 08/19/24 15:08 codeine Allergy Rash/Hives Verified 08/19/24 15:08 Penicillins Allergy Rash/Hives Verified 08/19/24 15:08 Sulfa (Sulfonamide Allergy Rash/Hives Verified 08/19/24 15:08 Antibiotics) levofloxacin AdvReac Unknown Verified 08/19/24 15:08 Physical Examination Osteopathic Statement: *. No significant issues noted on an osteopathic structural exam other than those noted in the History and Physical/Consult. Physical exam: Patient is awake, alert, and oriented 3 Vital signs stable Adequate chest excursion with deep inspiration and expiration Patient declines examination of her thoracic or lumbar spine at the bedside Patient currently resting comfortably lying flat on her back Dorsiflexion, plantarflexion, and extensor hallucis longus positive sustained bilaterally Lower extremity strength 5/5 bilaterally Straight leg test negative bilateral lower extremities No signs or symptoms of DVT; no calf pain No pain with internal and external rotation of the hips bilaterally Neurovascularly intact Results - Labs Labs: Abnormal Lab Results - Last 24 Hours (Table) 08/19/24 08/19/24 08/19/24 Range/Units 12:10 12:10 17:18 RBC (4.10-5.20) X 10*6/uL Hgb (12.0-15.0) g/dL Hct (37.2-46.3) % MCV 97.2 H (80.0-97.0) fL MCH 32.9 H (27.0-32.0) pg Lymphocytes # 0.82 L (0.90-5.00) 10*3/uL Sodium 136 L (137-145) mmol/L Potassium 5.5 H (3.5-5.1) mmol/L Carbon Dioxide 21 L (22-30) mmol/L BUN 32 H (7-17) mg/dL BUN/Creatinine Ratio (12.00-20.00) Ratio Glucose 230 H (74-99) mg/dL POC Glucose (mg/dL) 173 H (70-110) mg/dL Calcium (8.7-10.3) mg/dL Total Bilirubin 2.1 H (0.2-1.3) mg/dL AST 63 H (14-36) U/L ALT 46 H (4-34) U/L Alkaline Phosphatase 206 H (38-126) U/L 08/19/24 08/20/24 08/20/24 Range/Units 21:48 05:14 05:14 RBC 3.47 L (4.10-5.20) X 10*6/uL Hgb 11.1 L (12.0-15.0) g/dL Hct 34.4 L (37.2-46.3) % MCV 99.1 H (80.0-97.0) fL MCH (27.0-32.0) pg Lymphocytes # (0.90-5.00) 10*3/uL Sodium (137-145) mmol/L Potassium (3.5-5.1) mmol/L Carbon Dioxide (22-30) mmol/L BUN 27.5 H (7-17) mg/dL BUN/Creatinine Ratio 39.29 H (12.00-20.00) Ratio Glucose 153 H (74-99) mg/dL POC Glucose (mg/dL) 147 H (70-110) mg/dL Calcium 8.6 L (8.7-10.3) mg/dL Total Bilirubin (0.2-1.3) mg/dL AST (14-36) U/L ALT (4-34) U/L Alkaline Phosphatase (38-126) U/L 08/20/24 Range/Units 07:12 RBC (4.10-5.20) X 10*6/uL Hgb (12.0-15.0) g/dL Hct (37.2-46.3) % MCV (80.0-97.0) fL MCH (27.0-32.0) pg Lymphocytes # (0.90-5.00) 10*3/uL Sodium (137-145) mmol/L Potassium (3.5-5.1) mmol/L Carbon Dioxide (22-30) mmol/L BUN (7-17) mg/dL BUN/Creatinine Ratio (12.00-20.00) Ratio Glucose (74-99) mg/dL POC Glucose (mg/dL) 141 H (70-110) mg/dL Calcium (8.7-10.3) mg/dL Total Bilirubin (0.2-1.3) mg/dL AST (14-36) U/L ALT (4-34) U/L Alkaline Phosphatase (38-126) U/L H & H 08/19/24 08/20/24 Range/Units 12:10 05:14 Hgb 14.2 11.1 L (12.0-15.0) g/dL Hct 41.9 34.4 L (37.2-46.3) % Result Diagrams: 08/20/24 05:14 08/20/24 05:14 Assessment and Plan Assessment: Assessment: Known compression fracture deformities of T11, L2, and L3 Thoracic back pain Lumbar back pain Altered mental status with confusion and hallucination due to medication Asymptomatic bacteremia Hyperkalemia Type 2 diabetes Essential tremor (1) T11 vertebral fracture Current Visit: Yes Status: Acute Code(s): S22.089A - UNSP FRACTURE OF T11- T12 VERTEBRA, INIT FOR CLOS FX SNOMED Code(s): 639518277 (2) L2 vertebral fracture Current Visit: Yes Status: Acute Code(s): S32.029A - UNSP FRACTURE OF SECOND LUMBAR VERTEBRA, INIT FOR CLOS FX SNOMED Code(s): 874893065 (3) L3 vertebral fracture Current Visit: Yes Status: Acute Code(s): S32.039A - UNSP FRACTURE OF THIRD LUMBAR VERTEBRA, INIT FOR CLOS FX SNOMED Code(s): 209168580 (4) Thoracic back pain Current Visit: Yes Status: Acute Code(s): M54.6 - PAIN IN THORACIC SPINE SNOMED Code(s): 136072658 (5) Lumbar back pain Current Visit: Yes Status: Acute Code(s): M54.50 - LOW BACK PAIN, UNSPECIFIED SNOMED Code(s): 527639379 (6) Asymptomatic bacteriuria Current Visit: Yes Status: Acute Code(s): R82.71 - BACTERIURIA SNOMED Code(s): 322787935 (7) Type 2 diabetes mellitus Current Visit: Yes Status: Acute Code(s): E11.9 - TYPE 2 DIABETES MELLITUS WITHOUT COMPLICATIONS SNOMED Code(s): 25271427 (8) Hyperkalemia Current Visit: Yes Status: Acute Code(s): E87.5 - HYPERKALEMIA SNOMED Code(s): 70878574 (9) Essential tremor Current Visit: Yes Status: Acute Code(s): G25.0 - ESSENTIAL TREMOR SNOMED Code(s): 234050551 (10) Altered mental status Current Visit: Yes Status: Acute Code(s): R41.82 - ALTERED MENTAL STATUS, UNSPECIFIED SNOMED Code(s): 663870954 Plan: Plan: 1. Patient was having some difficulty with controlling her back pain as it was exacerbated during a 2-week hospital stay at [facility]. She was discharged with hydrocodone medication. She subsequently followed up with her primary in which his dosing was increased and cyclobenzaprine was added. Patient has had altered mental status with confusion and hallucination since that time. Patient's daughter states that is why the patient was brought to the hospital but does admit patient is having difficulty controlling her pain. She was recently seen in our office yesterday on 08/19/2024. She is known to have compression fracture deformities of T11, L2, and L3. She was being treated for compression fracture deformity in the outpatient setting. Patient declines bracing today for her fractures. She declined bracing in the outpatient setting. Patient wants to continue with conservative treatment. We have ordered thoracic and lumbar x-ray imaging, which is pending. Patient feels with change of medication with returning to her normal mental status she would like to be discharged home. Patient's family states they have home care set up to come help the patient at home. And that she was managing her pain at home. Patient currently does not wish for surgical intervention at her thoracic or lumbar spines and does not want bracing. We did discuss patient may transfer to a bedside commode with assistance. She should avoid working with physical therapy and Occupational Therapy. This was discussed with nursing as well. We will continue to follow the patient. We will review her imaging once completed. Currently, we will plan to have her continue the conservative treatment hopefully manage with oral medications. Once the patient is able to return to her mental baseline, if her pain is adequately controlled, we would plan to have her discharge home for continued conservative treatment. Patient may follow-up with Marco Tanner PA-C or Dr. Sae Del Real at [facility] in 2-3 weeks following discharge. 2. Patient will continue be seen and examined by medicine for her multiple medical diagnoses. Time with Patient: Greater than 30
[2024-08-20 12:29] LABS: Glucose,Whole Blood 159 mg/dL (70-110)
[2024-08-20 12:31] VITALS: BMI 26.2
--- NOTE | 2024-08-20 15:00 | XR ---
EXAMINATION TYPE: XR thoracic spine 2V DATE OF EXAM: 08/20/2024 11:58 AM COMPARISON: 03/02/2023 CT CLINICAL INDICATION: Female, 79 years old with history of follow up compression fxs, pain TECHNIQUE: 3 view(s) obtained. FINDINGS: There are 12 thoracic type vertebral bodies. Pedicles appear intact. Disc heights are preserved. The frontal projection there is a suggestion of some mild compression of T11. This was present on compari son 03/02/2023 CT. Remaining vertebral body heights are preserved. IMPRESSION: 1. Old mild compression deformity T11 [facility], , 08/20/2024 2:58 PM
--- NOTE | 2024-08-20 15:03 | XR ---
EXAMINATION TYPE: XR lumbar spine 2 or 3V DATE OF EXAM: 08/20/2024 11:58 AM COMPARISON: 03/02/2023 CLINICAL INDICATION: Female, 79 years old with history of follow up compression fxs, pain TECHNIQUE: 3 view(s) obtained. FINDINGS: There are 5 lumbar-type vertebral bodies. Pedicles are intact. There is approximately 25% loss of anterior vertebral body height at L3. Posterior disc space narrowi ng is presentr 25% loss of vertebral body height is present at L2 some milder compression deformity o f T12 is noted. This was not as well-visualized on thoracic spine imaging IMPRESSION: 1. Compression deformities T12, L2 and L3. These appear to be interval changes from the comparison p mary films [facility], , 08/20/2024 3:01 PM
--- NOTE | 2024-08-20 16:07 | P.PN ---
Subjective Progress Note Date: 08/20/24 79-year-old female was brought in by family members because of altered mental status. Patient is well-known to me for her from her prolonged hospitalization at [facility] where she was treated for compression fractures. Patient was sent home on increased dose of [place] along with cyclobenzaprine dose of which was recently increased after the dose of cyclobenzaprine was increased patient started having confusional episodes and was lethargic. Patient was believed to have a UTI because of her back pain although patient does not have any other symptoms of UTI patient does not have leukocytosis does not have any fever patient was recently started on antibiotic considering that back pain as a UTI. Patient denies any dysuria or increased urgency or frequency. Patient has mild elevated potassium but this is hemolyzed sample. Patient is alert oriented but still confused 08/20/2024 Patient is evaluated in follow-up in the medical floor. Her electrolytes have significantly improved sodium of 135 potassium 4.2 BUN of 27.5 creatinine 0.7. White blood cell count remains normal at 6.42. She has been afebrile 96% on 2 L of oxygen via nasal cannula. She is currently off of her Cairo and c yclobenzaprine. She is receiving Toradol for pain. Plan with home with home care on discharge however we are still pending the PT evaluation. Review of Systems Constitutional: Denied any fatigue denied any fever. Cardio vascular: denied any chest pain, palpitations Gastrointestinal: denied any nausea, vomiting, diarrhea Pulmonary: Denied any shortness of breath cough Neurologic denied any new focal deficits All inpatient medications were reviewed and appropriate changes in these medications as dictated in the interval history and assessment and plan. PHYSICAL EXAMINATION: GENERAL: The patient is alert and oriented x2, not in any acute distress. Well developed, well nourished. HEENT: Pupils are round and equally reacting to light. EOMI. No scleral icterus. No conjunctival pallor. Normocephalic, atraumatic. No pharyngeal erythema. No thyromegaly. CARDIOVASCULAR: S1 and S2 present. No murmurs, rubs, or gallops. PULMONARY: Chest is clear to auscultation, no wheezing or crackles. ABDOMEN: Soft, nontender, nondistended, normoactive bowel sounds. No palpable organomegaly. MUSCULOSKELETAL: No joint swelling or deformity. EXTREMITIES: No cyanosis, clubbing, or pedal edema. NEUROLOGICAL: Gross neurological examination did not reveal any focal deficits. SKIN: No rashes. Assessment and plan - Altered mental status medication use mostly because of cyclobenzaprine which will be held, Cairo will be held as well. Patient will be monitored overnight will use nonsteroidal anti-inflammatory medications and steroidal anti- inflammatory medications for pain. - Asymptomatic bacteriuria: I do not believe patient has urinary tract infection her back pain is secondary to compression fractures will hold off on any antibiotics at this time. - Compression fractures, lower back pain: Pain management as mentioned above avoid opiates, anticholinergic medications, benzodiazepines, barbiturates, muscle relaxers. - Type 2 diabetes mellitus patient restarted sliding scale insulin - Essential tremor for which patient is on propranolol which will be resumed - Hyperkalemia secondary to hemolysis DVT prophylaxis: Lovenox Plan Continue normal saline at 75 mls/hr Orthopedic spinal has been consulted Pending CT imaging Pending PT/OT evaluation Add robaxin PRN Tramadol PRN BMP in the AM The impression and plan of care has been dictated by Nurse Merrick Maria as directed. Dr. Denise MD I have performed a history and physical examination and medical decision making of this patient, discussed the same with the dictator, and agree with the dict ators assessment and plan as written, documented as a scribe. Based on total visit time, I have performed more than 50% of this visit. Objective - Vital Signs Vital signs: Vital Signs Temp 98.2 F 08/20/24 07:16 Pulse 65 08/20/24 07:16 Resp 16 08/20/24 07:16 BP 140/69 08/20/24 07:16 Pulse Ox 96 08/20/24 07:16 FiO2 Intake & Output 08/19/24 08/20/24 08/20/24 18:59 06:59 18:59 Weight 67.132 kg 67.132 kg Other: Voiding Method Bedpan Diaper # Voids 2 # Bowel Movements 2 - Labs CBC & Chem 7: 08/20/24 05:14 08/20/24 05:14 Labs: Abnormal Lab Results - Last 24 Hours (Table) 08/19/24 08/19/24 08/19/24 Range/Units 12:10 12:10 17:18 RBC (4.10-5.20) X 10*6/uL Hgb (12.0-15.0) g/dL Hct (37.2-46.3) % MCV 97.2 H (80.0-97.0) fL MCH 32.9 H (27.0-32.0) pg Lymphocytes # 0.82 L (0.90-5.00) 10*3/uL Sodium 136 L (137-145) mmol/L Potassium 5.5 H (3.5-5.1) mmol/L Carbon Dioxide 21 L (22-30) mmol/L BUN 32 H (7-17) mg/dL BUN/Creatinine Ratio (12.00-20.00) Ratio Glucose 230 H (74-99) mg/dL POC Glucose (mg/dL) 173 H (70-110) mg/dL Calcium (8.7-10.3) mg/dL Total Bilirubin 2.1 H (0.2-1.3) mg/dL AST 63 H (14-36) U/L ALT 46 H (4-34) U/L Alkaline Phosphatase 206 H (38-126) U/L 08/19/24 08/20/24/ Range/Units 21:48 05:14 05:14 RBC 3.47 L (4.10-5.20) X 10*6/uL Hgb 11.1 L (12.0-15.0) g/dL Hct 34.4 L (37.2-46.3) % MCV 99.1 H (80.0-97.0) fL MCH (27.0-32.0) pg Lymphocytes # (0.90-5.00) 10*3/uL Sodium (137-145) mmol/L Potassium (3.5-5.1) mmol/L Carbon Dioxide (22-30) mmol/L BUN 27.5 H (7-17) mg/dL BUN/Creatinine Ratio 39.29 H (12.00-20.00) Ratio Glucose 153 H (74-99) mg/dL POC Glucose (mg/dL) 147 H (70-110) mg/dL Calcium 8.6 L (8.7-10.3) mg/dL Total Bilirubin (0.2-1.3) mg/dL AST (14-36) U/L ALT (4-34) U/L Alkaline Phosphatase (38-126) U/L 08/20/ Range/Units 07:12 RBC (4.10-5.20) X 10*6/uL Hgb (12.0-15.0) g/dL Hct (37.2-46.3) % MCV (80.0-97.0) fL MCH (27.0-32.0) pg Lymphocytes # (0.90-5.00) 10*3/uL Sodium (137-145) mmol/L Potassium (3.5-5.1) mmol/L Carbon Dioxide (22-30) mmol/L BUN (7-17) mg/dL BUN/Creatinine Ratio (12.00-20.00) Ratio Glucose (74-99) mg/dL POC Glucose (mg/dL) 141 H (70-110) mg/dL Calcium (8.7-10.3) mg/dL Total Bilirubin (0.2-1.3) mg/dL AST (14-36) U/L ALT (4-34) U/L Alkaline Phosphatase (38-126) U/L Assessment and Plan Time with Patient: Less than 30
[2024-08-20 17:09] LABS: Glucose,Whole Blood 191 mg/dL (70-110)
[2024-08-20 20:09] LABS: Glucose,Whole Blood 199 mg/dL (70-110)
[2024-08-21 04:43] LABS: Bilirubin,Urine Negative (Negative); Blood,Urine Negative (Negative); Color,Urine Yellow; Glucose,Urine (UA) Negative (Negative); Ketones,Urine Negative (Negative); Leukocyte Esterase,Urine Negative (Negative); Nitrite,Urine Negative (Negative); PH, Urine 6.5 (5.0-8.0); Protein,Urine Negative (Negative); Specific Gravity,Urine 1.015 (1.001-1.035); Urobilinogen,Urine <2.0 mg/dL (<2.0)
[2024-08-21 04:53] LABS: Barbiturate Screen,Urine Not Detected (NotDetected); Benzodiazepines Screen,Urine Not Detected (NotDetected); Opiate Screen,Urine Detected (NotDetected); Oxycodone Screen, Urine Not Detected (NotDetected); Phencyclidine Screen,Urine Not Detected (NotDetected); Tricyclic Antidepressant,Urine Detected (NotDetected); Urn Cannabinoid Scrn Not Detected (NotDetected)
[2024-08-21 07:05] LABS: Glucose,Whole Blood 166 mg/dL (70-110)
[2024-08-21 10:33] LABS: Anion Gap 7.70 mmol/L (4.00-12.00); BUN/Creat Ratio 36.20 Ratio (12.00-20.00); Blood Urea Nitrogen 18.1 mg/dL (9.0-27.0); Calcium 8.4 mg/dL (8.7-10.3); Carbon Dioxide 21.3 mmol/L (21.6-31.8); Chloride 110 mmol/L (96-109); Glucose 160 mg/dL (70-110); Potassium 4.2 mmol/L (3.5-5.5); Sodium 139 mmol/L (135-145)
--- NOTE | 2024-08-21 10:49 | P.PN ---
Progress Note - Text Progress Note Date: 08/21/24 The patient is seen and examined. She continues to have significant pain at her thoracolumbar junction with mobilization. She was able to get up to bedside commode with significant assistance yesterday. She denies any new changes in her lower extremities. She denies any fevers or chills. She feels her mentation is doing adequately. Her daughter is at her bedside. She denies any motor or neurologic loss with bowel bladder function or with her lower extremities. She denies any chest pain or shortness of breath. She continues to be unable to mobilize on her own due to the pain at her back. Her imaging from yesterday is reviewed. On exam She is afebrile stable vital signs Her chest has good excursion deep inspiration expiration Her back has tenderness to palpation at the thoracolumbar junction. There is no open wounds lacerations or abrasions. Her abdomen soft nontender. No distention. Lower extremities have sustained dorsiflexion plantarflexion EHL hip flexion knee extension intact. Thighs and calves soft nontender. With mobility she has significant pain in her back. She is unable to sit up on her own. She is unable to mobilize her get up from her bed on her own. This is due to her back pain X-rays from yesterday are completed and reviewed X-rays show new compression deformities at T12 L2 and L3. There is chronic compression deformity T11 assessment and plan Subacute compression deformities T12, L2, L3, osteoporotic and atraumatic Inability to mobilize or ambulate on her own due to back pain No acute neurologic injury of the lower extremities Deconditioning due to inactivity Altered mental status resolving likely due to medications We had a long discussion with the patient and her daughter at bedside today. She is not making significant progress despite conservative care for her compression fractures at T12 L2 and L3. It is difficult to control her pain as she has been having some mental status changes. Right now we seem to have made some improvements in her pain control but is difficult to determine how she will do with her mobility. Will have therapy work with her to try to mobilize gently as she is able to tolerate We had a long discussion in regards to the possibly of surgical intervention. I think the patient is a candidate for kyphoplasty at T12 L2 and L3. Each of these fractures show increased signal on her recent MRI and continue to show evidence of incompletely healed fracture. She is not having neurologic change. Kyphoplasty would involve each of these levels and I would like to take a biopsy at each level to rule out any unknown foreseen process. I think that a kyphoplasty could help with her stability at her back in May give significant relief for a number her pain symptoms. This would not address her degenerative changes or disc issues or deconditioning, but stabilizing the fractures would likely give her a chance to improve her mobility safely and potentially with significantly less pain. I discussed the risk complications alternatives and benefits at length. I discussed the risk of bleeding risk infection with need for further surgeries could decrease loss of motion loss of function cement extravasation nerve damage problems with the surgery with her heart with her lungs as well as the poss ibility that surgery may not alleviate her symptoms explained. I answered her questions and her daughter's questions best my ability later today understand and they are interested in proceeding with surgical intervention as soon as possible. Will go ahead and plan for kyphoplasty at T12 L2 and L3 tomorrow. We will have her n.p.o. after midnight. We will obtain further labs for appropriate medical clearance.
[2024-08-21 11:18] LABS: INR 1.0 (<1.2); Prothrombin Time 11.2 sec (10.0-12.5)
[2024-08-21 12:17] LABS: Glucose,Whole Blood 184 mg/dL (70-110)
--- NOTE | 2024-08-21 14:41 | XR ---
EXAMINATION TYPE: XR chest 2V DATE OF EXAM: 08/21/2024 12:08 PM COMPARISON: 06/24/2020 CLINICAL INDICATION: Female, 79 years old with history of Pre op screen, TECHNIQUE: XR chest 2V view(s) obtained. FINDINGS: The heart size is normal. The pulmonary vasculature is normal. The lungs are clear. IMPRESSION: 1. No acute pulmonary process. [facility], , 08/21/2024 2:38 PM
[2024-08-21 15:11] LABS: Basophils # (A) 0.01 X 10*3/uL (0.00-0.10); Basophils % (A) 0.2 %; Eosinophils # (A) 0.22 X 10*3/uL (0.04-0.35); Eosinophils % (A) 5.1 %; HCT 33.3 % (37.2-46.3); HGB 10.9 g/dL (12.0-15.0); Immature Grans, Automated 0.70 %; Lymphocytes # (A) 1.53 X 10*3/uL (0.90-5.00); Lymphocytes % (A) 35.7 %; MCH 33.2 pg (27.0-32.0); MCHC 32.7 g/dL (32.0-37.0); MCV 101.5 FL (80.0-97.0); Monocytes # (A) 0.51 X 10*3/uL (0.20-1.00); Monocytes % (A) 11.9 %; NRBC Per 100 WBC 0 X 10*3/uL (0.00-0.01); Neutrophils # (A) 1.98 X 10*3/uL (1.80-7.70); Neutrophils % (A) 46.4 %; Platelet Count 147 X 10*3/uL (140-440); RBC 3.28 X 10*6/uL (4.10-5.20); RDW 13.5 % (11.5-14.5); WBC 4.28 X 10*3/uL (4.50-10.00)
[2024-08-21 17:02] LABS: Glucose,Whole Blood 136 mg/dL (70-110)
[2024-08-21 20:03] LABS: Glucose,Whole Blood 160 mg/dL (70-110)
--- NOTE | 2024-08-21 23:16 | P.PN ---
Subjective Progress Note Date: 08/21/24 79-year-old female was brought in by family members because of altered mental status. Patient is well-known to me for her from her prolonged hospitalization at [facility] where she was treated for compression fractures. Patient was sent home on increased dose of [place] along with cyclobenzaprine dose of which was recently increased after the dose of cyclobenzaprine was increased patient started having confusional episodes and was lethargic. Patient was believed to have a UTI because of her back pain although patient does not have any other symptoms of UTI patient does not have leukocytosis does not have any fever patient was recently started on antibiotic considering that back pain as a UTI. Patient denies any dysuria or increased urgency or frequency. Patient has mild elevated potassium but this is hemolyzed sample. Patient is alert oriented but still confused 08/20/2024 Patient is evaluated in follow-up in the medical floor. Her electrolytes have significantly improved sodium of 135 potassium 4.2 BUN of 27.5 creatinine 0.7. White blood cell count remains normal at 6.42. She has been afebrile 96% on 2 L of oxygen via nasal cannula. She is currently off of her [place] and cyclobenzaprine. She is receiving Toradol for pain. Plan with home with home care on discharge however we are still pending the PT evaluation. 08/21/2024 Patient is seen in follow-up today with orthopedics Dr. Del Real following patient has multiple compression fractures and orthopedics had ordered lumbar and thoracic spine x-rays and discussed with the patient with subacute compression fractures and deformities noted at T12, L2, L3. Patient per nursing staff attempt to get up although was extremely weak and unable to due to the pain. Mentation is improved and at baseline with daughter at the bedside and patient is willing to proceed with surgical intervention. Patient will be n.p.o. and discussion of possible surgical intervention this evening or a.m. Patient is afebrile and with no reports of chest pain or shortness of breath. Patient has been tolerating diet with no reported nausea or vomiting. Review of Systems Constitutional: Denied any fatigue denied any fever. Patient reports feeling anxious Cardio vascular: denied any chest pain, palpitations Gastrointestinal: denied any nausea, vomiting, diarrhea Pulmonary: Denied any shortness of breath cough Neurologic reports of significant weakness and ongoing back and neck pain All inpatient medications were reviewed and appropriate changes in these medications as dictated in the interval history and assessment and plan. PHYSICAL EXAMINATION: GENERAL: The patient is alert and oriented x2, not in any acute distress. Well developed, well nourished. Elderly appearing, at baseline HEENT: Pupils are round and equally reacting to light. EOMI. No scleral icterus. No conjunctival pallor. Normocephalic, atraumatic. No pharyngeal erythema. No thyromegaly. CARDIOVASCULAR: S1 and S2 muffled PULMONARY: Diminished breath sounds bilaterally otherwise chest is clear to auscultation, no wheezing or crackles. ABDOMEN: Soft, nontender, nondistended, normoactive bowel sounds. No palpable organomegaly. MUSCULOSKELETAL: No joint swelling or deformity. EXTREMITIES: No cyanosis, clubbing, or pedal edema. NEUROLOGICAL: Gross neurological examination did not reveal any focal deficits. Diffusely weak SKIN: No rashes. Assessment: - Altered mental status medication use mostly because of cyclobenzaprine, improved, [place] will be held as well. - Asymptomatic bacteriuria: I do not believe patient has urinary tract infection her back pain is secondary to compression fractures will hold off on any antibiotics at this time. - Compression fractures, lower back pain: Pain management as mentioned above avoid opiates, anticholinergic medications, benzodiazepines, barbiturates, muscle relaxers. - Type 2 diabetes mellitus history - Essential tremor for which patient is on propranolol which will be resumed - Hyperkalemia secondary to hemolysis - GI prophylaxis -DVT prophylaxis: Lovenox - Full code Plan: Continue gentle hydration in the form of normal saline at 75 mls/hr. Follow-up with repeat labs and patient will be n.p.o. with orthopedics following recommending kyphoplasty which is tentatively scheduled for 08/22/2024 early a.m. Diet to be resumed per surgery. Will await official surgical report Pending PT/OT evaluation postsurgery as patient will most likely need ECF Continue robaxin PRN Continue with tramadol PRN BMP in the AM The impression and plan of care has been dictated by Gladys Ko, Nurse Practitioner as directed. Dr. Denise MD I have performed a history and examination and MDM of this patient, discussed the same with the dictator, and agree with the dictator's assessment and plan as written ,documented as a scribe. Based on total visit time, I have performed more than 50% of the visit. Objective - Vital Signs Vital signs: Vital Signs Temp 98.4 F 08/21/24 06:57 Pulse 63 08/21/24 06:57 Resp 18 08/21/24 06:57 BP 170/76 08/21/24 06:57 Pulse Ox 98 08/21/24 06:57 FiO2 Intake & Output 08/20/24 08/21/24 08/21/24 18:59 06:59 18:59 Intake Total 1160 240 Output Total 250 Balance 1160 -10 Weight 67.132 kg Intake: Oral 1160 240 Output: Urine 250 Other: Voiding Method Bedpan Bedside Commode Diaper Diaper External Catheter # Voids 3 1 # Bowel Movements 3 - Labs CBC & Chem 7: 08/21/24 10:46 08/21/24 06:12 Labs: Abnormal Lab Results - Last 24 Hours (Table) 08/20/24 08/20/24 08/20/24 Range/Units 12:28 17:07 20:08 POC Glucose (mg/dL) 159 H 191 H 199 H (70-110) mg/dL Urine Opiates Screen (NotDetected) U Tricyclic Antidepress (NotDetected) 08/21/24 08/21/24 Range/Units 04:20 07:01 POC Glucose (mg/dL) 166 H (70-110) mg/dL Urine Opiates Screen Detected H (NotDetected) U Tricyclic Antidepress Detected H (NotDetected)
[2024-08-22 07:44] LABS: Glucose,Whole Blood 126 mg/dL (70-110)
--- NOTE | 2024-08-22 08:53 | P.PN ---
Progress Note - Text Progress Note Date: 08/22/24 Orthopedic spine: History of present illness: Patient is a pleasant 79-year-old female known to our service who is seen examined at bedside for further evaluation of her thoracic or lumbar spine. She was recently seen in our office on 08/19/2024. She is known to have compression fracture deformities of T11, L2, and L3. She was being treated for compression fracture deformity in the outpatient setting. Patient was recently admitted to [facility] for evaluation of kidney stones. Patient was not found to have kidney stones. She was admitted for 2 weeks. During this time her back pain significantly worsened. Multiple imaging modalities were taken during her admission to [facility]. MRI imaging was reviewed in our office yesterday. She was found to have multiple compression fracture deformities again stated at T11, L2, and L3. Patient had been progressing over time for her treatment of compression fracture deformity before her symptoms significantly worsened during her admission to [facility]. P atient currently denies lower extremity weakness or radiculopathy bilaterally. Her pain stays at her thoracic and lumbar spines. Her pain is better controlled while at rest. Her pain is exacerbated with any movements of her spine. Patient declined bracing in the outpatient setting. She continues to decline bracing. X-ray imaging of the thoracic and lumbar spine were taken during her admission to the hospital which showed evidence of known compression fractures of T11, L2, and L3 as well as new fracture of T12. Patient has had significant difficulty with her mobilization. She is not having significant improvement during her admission to the hospital. It was discussed proceeding forward with T12, L2, and L3 kyphoplasty with biopsy today, 08/22/2024. Patient feels she is failing conservative treatment options and would like to proceed forward with surgical intervention as scheduled. She is currently n.p.o. in anticipation for surgical intervention. We did discuss she would need medical clearance prior to surgical intervention. Patient was experiencing altered mental status changes after change in medication following her previous discharge from [facility]. She has had significant improvement in regards to her mental status during her admission here at [facility]. Her daughter is with her currently at the bedside. All questions are answered appropriately. Physical exam: Patient is awake, alert, and oriented 3 Vital signs stable Adequate chest excursion with deep inspiration and expiration Patient declines examination of her thoracic or lumbar spine at the bedside Patient currently resting comfortably lying flat on her back Dorsiflexion, plantarflexion, and extensor hallucis longus positive sustained bilaterally Lower extremity strength 5/5 bilaterally Straight leg test negative bilateral lower extremities No signs or symptoms of DVT; no calf pain No pain with internal and external rotation of the hips bilaterally Neurovascularly intact Pertinent studies: X-rays of the thoracic and lumbar spines taken on 08/20/2024: T12 acute compression fracture deformity; acute/subacute compression fracture deformities of L2 and L3; chronic compression fracture deformity of T11 Assessment: Acute compression fracture deformities of T12, L2, and L3 Chronic compression fracture deformity of T11 Osteoporotic and atraumatic compression fractures Thoracic back pain Lumbar back pain Altered mental status with confusion and hallucination due to medication; significantly improved Asymptomatic bacteremia Hyperkalemia Type 2 diabetes Essential tremor Plan: 1. Patient has acute compression fracture deformity of T12 and acute/subacute compression fracture deformities of L2 and L3. She is not having significant improvement with conservative treatment. She continues have significant difficulty with her mobilization. She feels she is failing conservative treatment. We discussed the possibility of surgical intervention in greater detail. Patient would like to proceed forward with surgical intervention as previously discussed yesterday. She is currently n.p.o. in anticipation for surgical intervention today. The proposed surgical intervention is a T12, L2, and L3 kyphoplasty with biopsy. We are currently planning for surgical intervention in approximately 4 PM today. Patient will need clearance by medicine prior to surgical intervention. 2. It is okay for the patient to mobilize with therapy. She may mobilize to a bedside commode as well.
[2024-08-22 11:57] LABS: Glucose,Whole Blood 137 mg/dL (70-110)
[2024-08-22 17:19] LABS: Glucose,Whole Blood 108 mg/dL (70-110)
[2024-08-22 20:21] LABS: Glucose,Whole Blood 151 mg/dL (70-110)
[2024-08-23 07:00] LABS: Glucose,Whole Blood 133 mg/dL (70-110)
--- NOTE | 2024-08-23 07:21 | P.PN ---
Subjective Progress Note Date: 08/22/24 79-year-old female was brought in by family members because of altered mental status. Patient is well-known to me for her from her prolonged hospitalization at [facility] where she was treated for compression fractures. Patient was sent home on increased dose of [place] along with cyclobenzaprine dose of which was recently increased after the dose of cyclobenzaprine was increased patient started having confusional episodes and was lethargic. Patient was believed to have a UTI because of her back pain although patient does not have any other symptoms of UTI patient does not have leukocytosis does not have any fever patient was recently started on antibiotic considering that back pain as a UTI. Patient denies any dysuria or increased urgency or frequency. Patient has mild elevated potassium but this is hemolyzed sample. Patient is alert oriented but still confused 08/20/2024 Patient is evaluated in follow-up in the medical floor. Her electrolytes have significantly improved sodium of 135 potassium 4.2 BUN of 27.5 creatinine 0.7. White blood cell count remains normal at 6.42. She has been afebrile 96% on 2 L of oxygen via nasal cannula. She is currently off of her [place] and cyclobenzaprine. She is receiving Toradol for pain. Plan with home with home care on discharge however we are still pending the PT evaluation. 08/21/2024 Patient is seen in follow-up today with orthopedics Dr. Del Real following patient has multiple compression fractures and orthopedics had ordered lumbar and thoracic spine x-rays and discussed with the patient with subacute compression fractures and deformities noted at T12, L2, L3. Patient per nursing staff attempt to get up although was extremely weak and unable to due to the pain. Mentation is improved and at baseline with daughter at the bedside and patient is willing to proceed with surgical intervention. Patient will be n.p.o. and discussion of possible surgical intervention this evening or a.m. Patient is afebrile and with no reports of chest pain or shortness of breath. Patient has been tolerating diet with no reported nausea or vomiting. 08/22/2024 Patient seen in follow-up today currently n.p.o. with orthopedics following planning on kyphoplasty today and will await official report. Patient reports she was able to stand on the side of the bed and reports this has been the first time she has done this since hospitalization. Patient is currently lying flat in bed and reports her pain is managed on current regimen. Patient is afebrile with no reports of chest pain or shortness of breath. Patient reports is having bowel movements and voiding with no difficulties at this time. Review of Systems Constitutional: Denied any fatigue denied any fever. Patient reports feeling less anxious Cardio vascular: denied any chest pain, palpitations Gastrointestinal: denied any nausea, vomiting, diarrhea Pulmonary: Denied any shortness of breath cough Neurologic reports of significant weakness and ongoing back and neck pain All inpatient medications were reviewed and appropriate changes in these medications as dictated in the interval history and assessment and plan. PHYSICAL EXAMINATION: GENERAL: The patient is alert and oriented x2, not in any acute distress. Well developed, well nourished. Elderly appearing, at baseline HEENT: Pupils are round and equally reacting to light. EOMI. No scleral icterus. No conjunctival pallor. Normocephalic, atraumatic. No pharyngeal erythema. No thyromegaly. CARDIOVASCULAR: S1 and S2 muffled PULMONARY: Diminished breath sounds bilaterally otherwise chest is clear to auscultation, no wheezing or crackles. ABDOMEN: Soft, nontender, nondistended, normoactive bowel sounds. No palpable organomegaly. MUSCULOSKELETAL: No joint swelling or deformity. EXTREMITIES: No cyanosis, clubbing, or pedal edema. NEUROLOGICAL: Gross neurological examination did not reveal any focal deficits. Diffusely weak SKIN: No rashes. Assessment: - Altered mental status medication use mostly because of cyclobenzaprine, improved, [place] will be held as well. - Asymptomatic bacteriuria: I do not believe patient has urinary tract infection her back pain is secondary to compression fractures will hold off on any antibiotics at this time. - Compression fractures, lower back pain: Pain management as mentioned above avoid opiates, anticholinergic medications, benzodiazepines, barbiturates, muscle relaxers. - Type 2 diabetes mellitus history - Essential tremor for which patient is on propranolol which will be continued - Hyperkalemia secondary to hemolysis - GI prophylaxis -DVT prophylaxis: Lovenox - Full code Plan: Continue gentle hydration in the form of normal saline at 75 mls/hr. patient is currently n.p.o. as patient is tentatively scheduled for kyphoplasty today 08/22/2024 with orthopedics. Per family at the bedside surgery is sometime this afternoon and will await official report Pending PT/OT evaluation postsurgery as patient will most likely need ECF Continue robaxin and tramadol PRN Recommend monitoring Accu-Cheks AC and at bedtime and monitor blood sugars closely while patient is n.p.o., continue current insulin regimen and will adjust accordingly BMP in the AM The impression and plan of care has been dictated by Gladys Ko, Nurse Practitioner as directed. Dr. Denise MD I have performed a history and examination and MDM of this patient, discussed the same with the dictator, and agree with the dictator's assessment and plan as written ,documented as a scribe. Based on total visit time, I have performed more than 50% of the visit. Objective - Vital Signs Vital signs: Vital Signs Temp 98.5 F 08/22/24 07:05 Pulse 57 L 08/22/24 07:05 Resp 18 08/22/24 07:05 BP 148/81 08/22/24 07:05 Pulse Ox 98 08/22/24 01:05 FiO2 Intake & Output 08/21/24 08/22/24 08/22/24 18:59 06:59 18:59 Intake Total 1080 590 Output Total 1000 800 Balance 80 -210 Intake: Oral 1080 590 Output: Urine 1000 800 Other: Voiding Method Bedside Commode Bedside Commode Diaper Diaper # Voids 1 # Bowel Movements 1 - Labs CBC & Chem 7: 08/21/24 10:46 08/21/24 06:12 Labs: Abnormal Lab Results - Last 24 Hours (Table) 08/21/24 08/21/24 08/21/24 Range/Units 06:12 10:46 12:12 WBC 4.28 L (4.50-10.00) X 10*3/uL RBC 3.28 L (4.10-5.20) X 10*6/uL Hgb 10.9 L (12.0-15.0) g/dL Hct 33.3 L (37.2-46.3) % MCV 101.5 H (80.0-97.0) FL MCH 33.2 H (27.0-32.0) pg Chloride 110 H (96-109) mmol/L Carbon Dioxide 21.3 L (21.6-31.8) mmol/L Creatinine 0.5 L (0.6-1.5) mg/dL BUN/Creatinine Ratio 36.20 H (12.00-20.00) Ratio Glucose 160 H (70-110) mg/dL POC Glucose (mg/dL) 184 H (70-110) mg/dL Calcium 8.4 L (8.7-10.3) mg/dL 08/21/24 08/21/24 08/22/24 Range/Units 17:00 20:01 07:35 WBC (4.50-10.00) X 10*3/uL RBC (4.10-5.20) X 10*6/uL Hgb (12.0-15.0) g/dL Hct (37.2-46.3) % MCV (80.0-97.0) FL MCH (27.0-32.0) pg Chloride (96-109) mmol/L Carbon Dioxide (21.6-31.8) mmol/L Creatinine (0.6-1.5) mg/dL BUN/Creatinine Ratio (12.00-20.00) Ratio Glucose (70-110) mg/dL POC Glucose (mg/dL) 136 H 160 H 126 H (70-110) mg/dL Calcium (8.7-10.3) mg/dL
[2024-08-23 07:25] LABS: Basophils # (A) 0.01 10*3/uL (0.00-0.10); Basophils % (A) 0.2 %; Eosinophils # (A) 0.27 10*3/uL (0.04-0.35); Eosinophils % (A) 5.6 %; HCT 36.0 % (37.2-46.3); HGB 11.9 g/dL (12.0-15.0); Lymphocytes # (A) 2.06 10*3/uL (0.90-5.00); Lymphocytes % (A) 42.5 %; MCH 32.4 pg (27.0-32.0); MCHC 33.1 g/dL (32.0-37.0); MCV 98.1 fL (80.0-97.0); Monocytes # (A) 0.45 10*3/uL (0.20-1.00); Monocytes % (A) 9.3 %; Neutrophils # (A) 2.05 10*3/uL (1.80-7.70); Neutrophils % (A) 42.2 %; Platelet Count 248 10*3/uL (140-440); RBC 3.67 10*6/uL (4.10-5.20); RDW 13.2 % (11.5-14.5); WBC 4.85 10*3/uL (4.50-10.00)
[2024-08-23 07:38] LABS: ALT 43 U/L (4-34); AST 59 U/L (14-36); African American GFR (CKD) >90 (>60 ml/min/1.73 sqM); Albumin 3.4 g/dL (3.5-5.0); Albumin/Globulin Ratio 1.2; Alkaline Phosphatase 206 U/L (38-126); Anion Gap 7 mmol/L; Blood Urea Nitrogen 11 mg/dL (7-17); Calcium 9.2 mg/dL (8.4-10.2); Carbon Dioxide 22 mmol/L (22-30); Chloride 109 mmol/L (98-107); Globulin 2.8 g/dL; Glucose 142 mg/dL (74-99); Magnesium 1.8 mg/dL (1.6-2.3); Non-African American GFR(CKD) >90 (>60 ml/min/1.73 sqM); Potassium 4.1 mmol/L (3.5-5.1); Sodium 138 mmol/L (137-145); Total Protein 6.2 g/dL (6.3-8.2)
[2024-08-23 12:03] LABS: Glucose,Whole Blood 120 mg/dL (70-110)
[2024-08-23] MEDS: DEXAMETHASONE SOD PHOSPHATE 4 MG/ML 1 ML VIAL IVP STA (13:07)
[2024-08-23] MEDS: ONDANSETRON 4 MG/2 ML VIAL IVP STA (13:07)
[2024-08-23] MEDS ORDERED: LIDOCAINE 1% INJ 10MG/ML (20 ML MDV) ONE (14:03)
[2024-08-23] MEDS ORDERED: PROPOFOL 10 MG/ML 20 ML VIAL IV ONE (14:03)
[2024-08-23] MEDS: SODIUM CHLORIDE 0.9% 1,000 ML IV ONE (14:03)
[2024-08-23] MEDS ORDERED: MIDAZOLAM 2 MG/2 ML VIAL ONE (14:03)
[2024-08-23] MEDS ORDERED: SUCCINYLCHOLINE CHLORIDE 200 MG/10 ML VIAL IV ONE (14:03)
[2024-08-23] MEDS: SODIUM CHLORIDE 0.9% 100 ML with ceFAZolin 2,000 MG IV ONE (14:03)
[2024-08-23] MEDS: LACTATED RINGERS 1,000 ML IV ONE (14:03)
[2024-08-23] MEDS ORDERED: fentaNYL (PF) 50 MCG/ML 2 ML AMP ONE (14:03)
[2024-08-23] MEDS: LIDOCAINE 2%-EPI 1:100,000 20 ML VIAL SQ ONE ×2 (14:30)
[2024-08-23] MEDS: BUPIVACAINE (PF) 0.5% 30 ML VIAL SQ ONE ×2 (14:30)
[2024-08-23] MEDS: IOPAMIDOL M200 10 ML VIAL MISCELLANE ONE (14:31)
[2024-08-23] MEDS ORDERED: BENZOCAINE/MENTHOL LOZENG 1 EACH LOZENGE MUCOUS MEM PRN (15:16)
[2024-08-23] MEDS ORDERED: HYDROmorphone 0.5 MG/0.5 ML SYRINGE IVP PRN (15:16)
[2024-08-23] MEDS ORDERED: ONDANSETRON 4 MG/2 ML VIAL IVP PRN (15:17)
[2024-08-23 15:18] LABS: Glucose,Whole Blood 161 mg/dL (70-110)
--- NOTE | 2024-08-23 15:23 | P.OP ---
Date of Procedure: 08/23/24 Preoperative Diagnosis: T12, L2, L3 vertebral body subacute compression fractures, pathologic due to osteoporosis osteoporosis Thoracolumbar back pain, failed conservative management Postoperative Diagnosis: Same Anesthesia: GETA Pathology: other (T12 L2 and L3 vertebral body biopsies sent separately to pathology) Condition: stable Disposition: PACU Description of Procedure: BRIEF OPERATIVE NOTE Preoperative Diagnosis: T12, L2, L3 vertebral body subacute compression fractures, pathologic due to osteoporosis osteoporosis Thoracolumbar back pain, failed conservative management Postoperative Diagnosis: Same Procedure: Kyphoplasty of T12 L2 and L3 Vertebral body biopsy of T12 L2 and L3 Use of biplanar fluoroscopic guidance throughout the case Surgeon: Dr. Del Real Field Ironworker: pharmacist assistant Anesthesia: General anesthesia Dr. Schaefer Estimated blood loss: Less than 10 mL Specimen: Vertebral body biopsy sent to pathology in formalin of T12 L2 and L3 Complications: None apparent Components implanted: Bone cement approximately 7 and half cc at T12, 6 cc at L2, and 4 cc at L3 Disposition: To recovery room in good stable condition. OPERATIVE INDICATIONS The patient has been having issues in their back over the past several weeks and has been having significant worsening despite conservative treatment. She was being treated with conservative management for L2 and L3 compression fractures with limited improvement and had significant worsening was found to have a new fracture at T12 as well. She was essentially incapacitated due to her pain and had to be hospitalized as she was unable to get around at all at home. Her pain was incapacitating for her and she was not doing well with conservative care.. The patient has been through conservative treatment. They attempted conservative care with bracing however they're not having any benefit despite brace use. They continue to have significant pain and debility due to their fracture. We discussed the possibility of surgical intervention. We discussed the possibly of kyphoplasty at each of the levels. She was known to have a prior stable fracture at T11 but active fractures at T12 L2 and L3. We discussed various treatment options including surgery, and the patient wishes to proceed with surgery We discussed the risk, patient's alternatives and benefits of surgery including but not limited to, risk of bleeding risk of infection, risk of need for further surgery, risk of decreased, loss of motion, loss of function, cement extravasation, nerve damage, paralysis, heart attack, blindness and . OPERATIVE SUMMARY After discussing all the risks, patient alternatives and benefits at length, the patient elected to proceed with surgical intervention, signed informed consent, and presented for their procedure. The patient was seen and examined in the preoperative holding area and the surgical site was marked. The patient was given antibiotics and brought to the operating room. The patient was sedated and intubated by anesthesia in standard fashion. The patient was positioned on to the operating room table in a prone position on the appropriate well-padded and well molded bilateral chest rolls. We were careful to pad any bony prominences and pressure points. We were careful to maintain the patient's cervical spine and good neutral alignment and position throughout. We used 2 C-arm machines to establish biplanar fluoroscopic guidance in AP and lateral positions. We were able to localize the fractures appropriately. The patient was prepped and draped in a normal standard fashion. An appropriate timeout and keystone protocol performed. We were able to proceed with the surgery. The local wound area was infiltrated with local anesthetic. An incision was made over the lateral aspect of the pedicle over the appropriate levels with a small 2 mm stab incision over the pedicle on the right at L2-L3 and T12. Intraoperative fluoroscopy was taken which showed a marker at the appropriate level. With the appropriate level positively confirmed at T12 L2 and L3, I was able to position a sharp trocar over the lateral aspect of the pedicle. At each of the sites on the right side I was able to advance the trocar into the pedicle and into the posterior aspect of vertebral body being careful to avoid penetration cephalad caudad or medially. The trocar was placed appropriately into the posterior aspect of vertebral body at the appropriate levels at T12 L2 and L3. This was confirmed with C-arm guidance. With the trocar intact I was then able to take a bone biopsy with a biopsy punch or a bony drill. The biopsy specimen was passed off to be sent to pathology in formalin. At each of the levels I was then able to place the kyphoplasty balloon within the vertebral body. The position was checked on C-arm. I was able to inflate the balloon under low pressure and visualization with C-arm. The balloon was well enclosed within the vertebral body. I was able to inflate the balloon send very low pressure particularly T12. There was slightly more pressure at L3 but it was less than 200 mmHg the cement was prepared. With the cement at appropriate working condition the balloons were deflated and removed. I was able to place bony cement with trocar with the cement delivery device under low pressure. It had good fill within the vertebral body. Was able to do each of the levels simultaneously with C-arm guidance and inserted the cement into the vertebral bodies appropriately. There is no evidence of any extravasation of the cement posteriorly toward the canal. The cement was well contained at the appropriate levels. At T12 I was able to place approximately 7-1/2 cc, at L2 approximately 6 cc, and at L3 approximately 4 cc, the cement was allowed to cure appropriately. The trochars removed and final images were taken on C-arm. This showed the cement at the appropriate levels. We were able to proceed with closure. The wound was cleaned and dried and dressed with the appropriate dressing. The drapes were broken down. The patient was gently rolled back onto their hospital bed being careful to maintain their cervical spine and good neutral alignment and position. They were woken up by anesthesia, extubated, and brought to the recovery room in good stable condition. The patient will be admitted to the hospital for observation and for appropriate postoperative care, medical management and monitoring. We will continue to follow them closely about the postoperative course.
--- NOTE | 2024-08-23 15:26 | FL ---
EXAMINATION TYPE: FL guidance operating room, XR lumbar spine 2 or 3V DATE OF EXAM: 08/23/2024 3:18 PM COMPARISON: Pre Operative Images if available both CT/MRI or plain film CLINICAL INDICATION: Female, 79 years old with history of Kyphoplasty T12,L2,L3; TECHNIQUE: FL guidance operating room, XR lumbar spine 2 or 3V, multiple fluoroscopic images provided for procedure. DAP: 17.98 mGym2 Gycm2 uGym2 cGycm2 or equivalent. FINDINGS: Fluoroscopic images during kyphoplasty. No immediate complication identified. IMPRESSION: 1. No evidence for intraoperative complication. 2. Please see the operative/procedural note for further details. [facility], , 08/23/2024 3:24 PM
[2024-08-23] MEDS: amLODIPine 5 MG TAB PO SCH (16:06)
[2024-08-23 16:50] LABS: Glucose,Whole Blood 163 mg/dL (70-110)
[2024-08-23] MEDS: SODIUM CHLORIDE 0.9% 1,000 ML IV SCH (17:21)
[2024-08-23 20:07] LABS: Glucose,Whole Blood 301 mg/dL (70-110)
[2024-08-24 06:55] LABS: Glucose,Whole Blood 153 mg/dL (70-110)
[2024-08-24 09:57] LABS: Basophils # (A) 0.01 X 10*3/uL (0.00-0.10); Basophils % (A) 0.1 %; Eosinophils # (A) 0 X 10*3/uL (0.04-0.35); Eosinophils % (A) 0 %; HCT 36.1 % (37.2-46.3); HGB 11.9 g/dL (12.0-15.0); Immature Grans, Automated 0.20 %; Lymphocytes # (A) 1.82 X 10*3/uL (0.90-5.00); Lymphocytes % (A) 20.6 %; MCH 32.6 pg (27.0-32.0); MCHC 33.0 g/dL (32.0-37.0); MCV 98.9 FL (80.0-97.0); Monocytes # (A) 0.55 X 10*3/uL (0.20-1.00); Monocytes % (A) 6.2 %; NRBC Per 100 WBC 0 X 10*3/uL (0.00-0.01); Neutrophils # (A) 6.43 X 10*3/uL (1.80-7.70); Neutrophils % (A) 72.9 %; Platelet Count 269 X 10*3/uL (140-440); RBC 3.65 X 10*6/uL (4.10-5.20); RDW 12.9 % (11.5-14.5); WBC 8.83 X 10*3/uL (4.50-10.00)
[2024-08-24 10:18] LABS: ALT 52 U/L (8-44); AST 62 U/L (13-35); Albumin 3.5 g/dL (3.8-4.9); Albumin/Globulin Ratio 1.52 Ratio (1.60-3.17); Alkaline Phosphatase 264 U/L (41-126); Anion Gap 11.50 mmol/L (4.00-12.00); BUN/Creat Ratio 19.83 Ratio (12.00-20.00); Blood Urea Nitrogen 11.9 mg/dL (9.0-27.0); Calcium 8.8 mg/dL (8.7-10.3); Carbon Dioxide 19.5 mmol/L (21.6-31.8); Chloride 106 mmol/L (96-109); Globulin 2.3 g/dL (1.6-3.3); Glucose 175 mg/dL (70-110); Potassium 4.4 mmol/L (3.5-5.5); Sodium 137 mmol/L (135-145); Total Protein 5.8 g/dL (6.2-8.2)
[2024-08-24 11:56] LABS: Glucose,Whole Blood 171 mg/dL (70-110)
--- NOTE | 2024-08-24 12:35 | PN ---
PROGRESS NOTE DATE OF SERVICE: 08/23/2024 SUBJECTIVE: This is an 79-year-old woman, who was admitted with change in mental status, is being closely monitored at this time. The patient was on cyclobenzaprine and Vincent. The patient had asymptomatic bacteriuria. The patient complains of back pain also and also Dr. Hill is planning surgery today. PAST MEDICAL HISTORY: Reviewed. REVIEW OF SYSTEMS: A 14-point review of systems negative except as mentioned earlier CURRENT MEDICATIONS: Reviewed. PHYSICAL EXAMINATION: VITAL SIGNS: Pulse is 57, blood pressure n, respirations 16. CHEST: Few scattered rhonchi and crackles. ABDOMEN: Soft. NERVOUS SYSTEM: Nonfocal. LABORATORY DATA: Reviewed. ASSESSMENT: 1. Change in mental status, metabolic encephalopathy, possibly medication induced with Flexeril, Vincent. 2. Compression fractures, back pain, for surgery by Dr. Hill today. 3. Asymptomatic bacteriuria. 4. Diabetes mellitus type 2. 5. Gait dysfunction. 6. Tremors. 7. Multiple complex medical issues. RECOMMENDATIONS: I recommend to continue current management and treatment otherwise at this time. I recommend to continue the current medications. Continue with pain management. Otherwise, continue with Ultram. Closely follow with Dr. Hill. Repeat labs. Guarded prognosis. Further recommendations to follow. MMODL / IJN: [id number] / MTDD
--- NOTE | 2024-08-24 13:46 | P.PN ---
Subjective Progress Note Date: 08/24/24 This is an 79 year-old female who is status post kyphoplasty of T12 L2 and L3 and vertebral body biopsy of T12 L2 and L3. Patient is seen and evaluated at bedside today. Patient states that her pain is well controlled and she was able to get out of bed with help yesterday postoperatively. Patient denies any new complaints today. Objective - Vital Signs Vital signs: Vital Signs Temp 98.3 F 08/24/24 11:52 Pulse 62 08/24/24 11:52 Resp 16 08/24/24 11:52 BP 134/68 08/24/24 11:52 Pulse Ox 91 L 08/24/24 11:52 FiO2 Intake & Output 08/23/24 08/24/24 08/24/24 18:59 06:59 18:59 Intake Total 750 400 Output Total 605 300 Balance 145 100 Intake: IV 750 Other 400 Output: Urine 600 300 Estimated Blood Loss 5 Other: Voiding Method Bedside Commode Bedside Commode Bedside Commode Diaper Diaper Diaper External Catheter External Catheter External Catheter # Voids 1 0 # Bowel Movements 0 - Exam On exam patient is resting comfortably in bed in no acute distress. Patient is alert and oriented x3. Dressings are clean, dry and intact. Minimal soft tissue swelling. No erythema. Neurovascular status and circulatory status are intact. - Labs CBC & Chem 7: 08/24/24 04:30 08/24/24 04:30 Labs: Abnormal Lab Results - Last 24 Hours (Table) 08/23/24 08/23/24 08/23/24 Range/Units 15:17 16:39 20:06 RBC (4.10-5.20) X 10*6/uL Hgb (12.0-15.0) g/dL Hct (37.2-46.3) % MCV (80.0-97.0) FL MCH (27.0-32.0) pg Eosinophils # (0.04-0.35) X 10*3/uL Carbon Dioxide (21.6-31.8) mmol/L Glucose (70-110) mg/dL POC Glucose (mg/dL) 161 H 163 H 301 H (70-110) mg/dL AST (13-35) U/L ALT (8-44) U/L Alkaline Phosphatase (41-126) U/L Total Protein (6.2-8.2) g/dL Albumin (3.8-4.9) g/dL Albumin/Globulin Ratio (1.60-3.17) Ratio 08/24/24 08/24/24 08/24/24 Range/Units 04:30 04:30 06:53 RBC 3.65 L (4.10-5.20) X 10*6/uL Hgb 11.9 L (12.0-15.0) g/dL Hct 36.1 L (37.2-46.3) % MCV 98.9 H (80.0-97.0) FL MCH 32.6 H (27.0-32.0) pg Eosinophils # 0 L (0.04-0.35) X 10*3/uL Carbon Dioxide 19.5 L (21.6-31.8) mmol/L Glucose 175 H (70-110) mg/dL POC Glucose (mg/dL) 153 H (70-110) mg/dL AST 62 H (13-35) U/L ALT 52 H (8-44) U/L Alkaline Phosphatase 264 H (41-126) U/L Total Protein 5.8 L (6.2-8.2) g/dL Albumin 3.5 L (3.8-4.9) g/dL Albumin/Globulin Ratio 1.52 L (1.60-3.17) Ratio 08/24/24 Range/Units 11:55 RBC (4.10-5.20) X 10*6/uL Hgb (12.0-15.0) g/dL Hct (37.2-46.3) % MCV (80.0-97.0) FL MCH (27.0-32.0) pg Eosinophils # (0.04-0.35) X 10*3/uL Carbon Dioxide (21.6-31.8) mmol/L Glucose (70-110) mg/dL POC Glucose (mg/dL) 171 H (70-110) mg/dL AST (13-35) U/L ALT (8-44) U/L Alkaline Phosphatase (41-126) U/L Total Protein (6.2-8.2) g/dL Albumin (3.8-4.9) g/dL Albumin/Globulin Ratio (1.60-3.17) Ratio Assessment and Plan Assessment: Subacute compression deformities T12, L2, L3, osteoporotic and atraumatic Inability to mobilize or ambulate on her own due to back pain No acute neurologic injury of the lower extremities Deconditioning due to inactivity Altered mental status resolving likely due to medications Status post kyphoplasty of T12 L2 and L3 and vertebral body biopsy of T12 L2 and L3 Plan: 1. Keep dressings clean, dry and intact. 2. Continue routine postoperative care and pain control. 3. Appreciate input from internal medicine. 4. We will continue to follow closely.
[2024-08-24 16:50] LABS: Glucose,Whole Blood 151 mg/dL (70-110)
[2024-08-24 20:16] LABS: Glucose,Whole Blood 139 mg/dL (70-110)
--- NOTE | 2024-08-24 23:05 | PN ---
PROGRESS NOTE DATE OF SERVICE: 08/24/2024 SUBJECTIVE: This is an 79-year-old woman, who was admitted with change in mental status and features of compression fractures, had kyphoplasty yesterday by Dr. Hill. No chest pain. No palpitations. No fever. OBJECTIVE: VITAL SIGNS: Pulse is 62, blood pressure 130/64, and respirations 16. CHEST: Clear to auscultation. CARDIOVASCULAR: S1, S2. ABDOMEN: Soft. LABORATORY DATA: Hemoglobin 11.9, rest of the labs are noted. ASSESSMENT: 1. Change in mental status, acute metabolic encephalopathy possibly secondary to medications induced by Flexeril and Sargents. 2. Compression fractures and back pain, status post kyphoplasty at T12, L2, L3. 3. Asymptomatic bacteriuria. 4. Diabetes mellitus, type 2. 5. Gait dysfunction. 6. Tremors. 7. Multiple complex medical issues. RECOMMENDATIONS: Recommend to continue current management and continue symptomatic treatment. Otherwise, recommend repeat labs in the morning. Closely follow with Orthopedic Surgery. DVT prophylaxis. Pain management. Further recommendations to follow. MMODL / IJN: [id number] /
[2024-08-25] MEDS: traMADol 50 MG TAB PO PRN ×2 (01:21→14:30)
[2024-08-25 07:03] LABS: Glucose,Whole Blood 116 mg/dL (70-110)
[2024-08-25 08:03] LABS: Basophils # (A) 0.02 X 10*3/uL (0.00-0.10); Basophils % (A) 0.3 %; Eosinophils # (A) 0.12 X 10*3/uL (0.04-0.35); Eosinophils % (A) 1.7 %; HCT 34.7 % (37.2-46.3); HGB 11.4 g/dL (12.0-15.0); Immature Grans, Automated 0.30 %; Lymphocytes # (A) 2.74 X 10*3/uL (0.90-5.00); Lymphocytes % (A) 38.2 %; MCH 32.9 pg (27.0-32.0); MCHC 32.9 g/dL (32.0-37.0); MCV 100.0 FL (80.0-97.0); Monocytes # (A) 0.58 X 10*3/uL (0.20-1.00); Monocytes % (A) 8.1 %; NRBC Per 100 WBC 0 X 10*3/uL (0.00-0.01); Neutrophils # (A) 3.70 X 10*3/uL (1.80-7.70); Neutrophils % (A) 51.4 %; Platelet Count 228 X 10*3/uL (140-440); RBC 3.47 X 10*6/uL (4.10-5.20); RDW 13.5 % (11.5-14.5); WBC 7.18 X 10*3/uL (4.50-10.00)
--- NOTE | 2024-08-25 08:58 | P.PN ---
Progress Note - Text Progress Note Date: 08/25/24 Orthopedic spine: History of present illness: Patient is a pleasant 79-year-old female known to our service who is seen examined at bedside for further evaluation of her thoracic or lumbar spine. She was recently seen in our office on 08/19/2024. She is known to have compression fracture deformities of T11, L2, and L3. She was being treated for compression fracture deformity in the outpatient setting. Patient was recently admitted to [facility] for evaluation of kidney stones. Patient was not found to have kidney stones. She was admitted for 2 weeks. During this time her back pain significantly worsened. Multiple imaging modalities were taken during her admission to [facility]. MRI imaging was reviewed in our office yesterday. She was found to have multiple compression fracture deformities again stated at T11, L2, and L3. Patient had been progressing over time for her treatment of compression fracture deformity before her symptoms significantly worsened during her admission to [facility]. X-ray imaging of the thoracic and lumbar spine were taken during her admission to the hospital which showed evidence of known compression fractures of T11, L2, and L3 as well as new fracture of T12. Patient has had significant difficulty with her mobilization. She is not having significant improvement during her admission to the hospital. It was discussed proceeding forward with T12, L2, and L3 kyphoplasty with biopsy which was performed on 08/23/2024. Postoperatively, patient has had significant improvement of her symptoms. She states she is not currently experiencing any significant thoracic or lumbar pain. She was able to mobilize with therapy on Sunday following surgical intervention. She was able to get a shower on Sunday. She is looking forward to mobilizing with therapy today. She is hoping for discharge home today if cleared. She currently denies any lower extremity radiculopathy or weakness bilaterally. Patient was experiencing altered mental status changes after change in medication following her previous discharge from [facility]. She has had significant improvement in regards to her mental status during her admission here at [facility]. Toradol has been discontinued. Pain currently being controlled with tramadol. Her daughter is with her currently at the bedside. All questions are answered appropriately. Physical exam: Patient is awake, alert, and oriented 3 Postoperative day #2 Vital signs stable Adequate chest excursion with deep inspiration and expiration Patient declines examination of her thoracic or lumbar spine at the bedside Dressings over the kyphoplasty sites are clean, dry, and intact No drainage, erythema, bruising, or obvious sign of infection at the thoracic or lumbar spines Patient is able to roll over in bed independently without significant difficulty Dorsiflexion, plantarflexion, and extensor hallucis longus positive sustained bilaterally Lower extremity strength 5/5 bilaterally Straight leg test negative bilateral lower extremities No signs or symptoms of DVT; no calf pain Neurovascularly intact Pertinent studies: X-rays of the thoracic and lumbar spines taken on 08/20/2024: T12 acute compression fracture deformity; acute/subacute compression fracture deformities of L2 and L3; chronic compression fracture deformity of T11 Assessment: Status post T12, L2, and L3 kyphoplasty with biopsy Acute compression fracture deformities of T12, L2, and L3 Chronic compression fracture deformity of T11 Osteoporotic and atraumatic compression fractures Thoracic back pain Lumbar back pain Altered mental status with confusion and hallucination due to medication; significantly improved Asymptomatic bacteremia Hyperkalemia Type 2 diabetes Essential tremor Plan: 1. Patient has acute compression fracture deformity of T12 and acute/subacute compression fracture deformities of L2 and L3. She underwent T12, L2, and L3 kyphoplasty with biopsy on 08/23/2024. Since that time her thoracic and lumbar pain has been significantly improved. She does not feel she is having significant pain. She was able to mobilize with physical therapy Sunday. She was able to get a shower yesterday. She is looking forward to mobilizing with therapy today. She is hoping for discharge home. Toradol has been discontinued. Oral tramadol has been added. We did discuss we would plan for prescription for tramadol at the time of discharge. This will be sent to the patient's pharmacy per request of the patient. We would defer muscle relaxer medication to medicine given her previous altered mental status with cyclobenzaprine. MAPS has been reviewed today, 08/25/2024, with an Overall Overdose Risk Score of 20. An "Opiod Start Talking" Form has been signed and placed in the patient's chart. A prescription has been written for tramadol 50 mg, 1 tab, every 6 hours, as needed for acute pain, dispense #28. If patient is able to increase her mobility with physical therapy and cleared by medicine, patient is cleared for discharge home from an orthopedic spine standpoint. Patient may follow-up with Marco Tanner PA-C or Dr. Sae Del Real at [facility] in 2-3 weeks following discharge. 2. Patient will work with physical therapy today. 3. Patient will continue to be seen and examined by medicine for her other medical diagnoses.
[2024-08-25 10:35] LABS: Anion Gap 9.60 mmol/L (4.00-12.00); BUN/Creat Ratio 18.80 Ratio (12.00-20.00); Blood Urea Nitrogen 9.4 mg/dL (9.0-27.0); Calcium 8.2 mg/dL (8.7-10.3); Carbon Dioxide 21.4 mmol/L (21.6-31.8); Chloride 107 mmol/L (96-109); Glucose 120 mg/dL (70-110); Potassium 3.7 mmol/L (3.5-5.5); Sodium 138 mmol/L (135-145)
[2024-08-25 12:00] LABS: Glucose,Whole Blood 158 mg/dL (70-110)
[2024-08-25 17:11] LABS: Glucose,Whole Blood 129 mg/dL (70-110)
--- NOTE | 2024-08-25 17:19 | XR ---
EXAMINATION TYPE: XR thoracic spine 2V, XR lumbar spine 2 or 3V DATE OF EXAM: 08/25/2024 5:10 PM INDICATION: Patient age:Female; 79 years old; Reason for study: pain, recent surgery; PHH. pain COMPARISON: Thoracic spine radiographs 08/20/2024, CT abdomen and pelvis 03/02/2023, lumbar spine fluoro scopic images 08/23/2024, lumbar spine radiographs 08/20/2024, 03/02/2023 TECHNIQUE: Frontal and lateral views of the thoracic spine were obtained. Frontal and lateral views o f the lumbar spine were obtained. FINDINGS: Limited examination due to patient's body habitus. Multilevel anterior osteophytosis of the visualized thoracic spine. Remote anterior wedge deformity of the T11 vertebral body with approximat dayanna 20% height loss and no obvious retropulsion. Vertebral augmentation changes involving the T12, L2 and L3 vertebral bodies. No new fractures identified. No spondylolisthesis. Mild levocurvature of th e lower lumbar spine. The visualized lungs are clear. Cholecystectomy clips in the right upper quadrant. IMPRESSION: Significantly limited examination due to patient's body habitus. 1. Post vertebral augmentation changes of the T12, L2 and L3 vertebral bodies. No new fracture defin itively identified. 2. Remote anterior wedge compression deformity of the T11 vertebral body. Better appreciated on prio r CT. [facility], , 08/25/2024 5:17 PM
--- NOTE | 2024-08-25 19:01 | XR ---
EXAMINATION TYPE: XR sacrum coccyx DATE OF EXAM: 08/25/2024 6:46 PM CLINICAL INDICATION:Female, 79 years old with history of pain; PHH, pain COMPARISON: CT abdomen/pelvis 03/02/2023. Lumbar spine radiographs 08/20/2024. Lumbar spine radiograph f rom the same day. TECHNIQUE: XR sacrum coccyx, examined in frontal and lateral projections. FINDINGS: There is no evidence of discrete fracture or dislocation. Multilevel degenerative changes o f the sacrum and bony pelvis with partially visualized vertebroplasty changes seen in the lower spine . There is limited visualization of the lumbar spine on vertebral bodies due to low penetration. Ther e is a subtle compression deformity suggested in the posterior aspect of L4 vertebral body superior e ndplate. IMPRESSION: No acute osseous abnormality on this limited evaluation. There is a subtle compression deformity sugg ested in the posterior aspect of L4 vertebral body superior endplate which is age-indeterminate. Degenerative changes of the sacrum and bony pelvis. Partially visualized vertebroplasty changes of th e lower lumbar spine. Findings may be better characterized with a dedicated MRI lumbar spine as clini yosef indicated. [facility], , 08/25/2024 6:58 PM
[2024-08-25 20:21] LABS: Glucose,Whole Blood 166 mg/dL (70-110)
[2024-08-25] MEDS: SENNOSIDES 8.6 MG TAB PO PRN (21:07)
--- NOTE | 2024-08-26 05:49 | P.PN ---
Subjective Progress Note Date: 08/25/24 79-year-old female was brought in by family members because of altered mental status. Patient is well-known to me for her from her prolonged hospitalization at [facility] where she was treated for compression fractures. Patient was sent home on increased dose of [place] along with cyclobenzaprine dose of which was recently increased after the dose of cyclobenzaprine was increased patient started having confusional episodes and was lethargic. Patient was believed to have a UTI because of her back pain although patient does not have any other symptoms of UTI patient does not have leukocytosis does not have any fever patient was recently started on antibiotic considering that back pain as a UTI. Patient denies any dysuria or increased urgency or frequency. Patient has mild elevated potassium but this is hemolyzed sample. Patient is alert oriented but still confused 08/20/2024 Patient is evaluated in follow-up in the medical floor. Her electrolytes have significantly improved sodium of 135 potassium 4.2 BUN of 27.5 creatinine 0.7. White blood cell count remains normal at 6.42. She has been afebrile 96% on 2 L of oxygen via nasal cannula. She is currently off of her [place] and cyclobenzaprine. She is receiving Toradol for pain. Plan with home with home care on discharge however we are still pending the PT evaluation. 08/21/2024 Patient is seen in follow-up today with orthopedics Dr. Del Real following patient has multiple compression fractures and orthopedics had ordered lumbar and thoracic spine x-rays and discussed with the patient with subacute compression fractures and deformities noted at T12, L2, L3. Patient per nursing staff attempt to get up although was extremely weak and unable to due to the pain. Mentation is improved and at baseline with daughter at the bedside and patient is willing to proceed with surgical intervention. Patient will be n.p.o. and discussion of possible surgical intervention this evening or a.m. Patient is afebrile and with no reports of chest pain or shortness of breath. Patient has been tolerating diet with no reported nausea or vomiting. 08/22/2024 Patient seen in follow-up today currently n.p.o. with orthopedics following planning on kyphoplasty today and will await official report. Patient reports she was able to stand on the side of the bed and reports this has been the first time she has done this since hospitalization. Patient is currently lying flat in bed and reports her pain is managed on current regimen. Patient is afebrile with no reports of chest pain or shortness of breath. Patient reports is having bowel movements and voiding with no difficulties at this time. 08/25/2024 Patient is seen in follow-up this morning status post kyphoplasty was reported to doing relatively well and pain controlled on current regimen discussing possibly going home with home care. Patient may benefit from ECF although family does not want patient to go to rehab. Will arrange for home care with rehab in the home setting. Patient was reporting severe pain later in the afternoon when getting up in the lower back and sacral region. Will obtain x- rays for further evaluation. Continue with supportive care. Patient is afebrile with no reported chest pain or shortness of breath. Patient has been tolerating some diet and eating a little better. Recommended continue with bowel regimen. Review of Systems Constitutional: Denied any fatigue denied any fever. Patient reports feeling less anxious Cardio vascular: denied any chest pain, palpitations Gastrointestinal: denied any nausea, vomiting, diarrhea Pulmonary: Denied any shortness of breath cough Neurologic reports of significant back pain in the lower sacral and buttock area All inpatient medications were reviewed and appropriate changes in these medications as dictated in the interval history and assessment and plan. PHYSICAL EXAMINATION: GENERAL: The patient is alert and oriented x2, not in any acute distress. Well developed, well nourished. Elderly appearing, at baseline HEENT: Pupils are round and equally reacting to light. EOMI. No scleral icterus. No conjunctival pallor. Normocephalic, atraumatic. No pharyngeal erythema. No thyromegaly. CARDIOVASCULAR: S1 and S2 muffled PULMONARY: Diminished breath sounds bilaterally otherwise chest is clear to auscultation, no wheezing or crackles. ABDOMEN: Soft, nontender, nondistended, normoactive bowel sounds. No palpable organomegaly. MUSCULOSKELETAL: No joint swelling or deformity. EXTREMITIES: No cyanosis, clubbing, or pedal edema. NEUROLOGICAL: Gross neurological examination did not reveal any focal deficits. Diffusely weak SKIN: No rashes. Assessment: - Altered mental status medication use mostly because of cyclobenzaprine, improved and at baseline - Asymptomatic bacteriuria: I do not believe patient has urinary tract infection her back pain is secondary to compression fractures will hold off on any antibiotics at this time. - Compression fractures, lower back pain: Status post kyphoplasty of [id number] - Type 2 diabetes mellitus history - Essential tremor for which patient is on propranolol which will be continued - Hyperkalemia secondary to hemolysis, improved - GI prophylaxis - DVT prophylaxis: Lovenox - Full code Plan: Patient being evaluated by orthopedics is status post kyphoplasty as mentioned previously. Patient reporting severe pain in the buttock and sacral region when attempting to get up this afternoon. Will obtain x-rays for further evaluation. Recommend reevaluation by PT/OT therapy as patient and family are adamant she is returning home. Home care is being arranged and necessary equipment for discharge Patient was potentially scheduled for discharge today although developed this increasing pain and images obtained showing no acute osseous abnormality with a subtle compression deformity suggested in the posterior aspect of L4 vertebral body superior endplate which is age-indeterminate with degenerative changes of the sacrum and bony pelvis. Will await orthopedic reevaluation of these images and discuss further regarding treatment plan Continue supportive care and okay for Ultram every 6 as opposed to every 8 hours Recommend monitoring Accu-Cheks AC and at bedtime and monitor blood sugars closely and will continue current insulin regimen and adjust if needed Await orthopedic clearance to determine discharge planning Due to multiple complex medical issues, overall prognosis is guarded The impression and plan of care has been dictated by Gladys Ko, Nurse Practitioner as directed. Dr. Cheko MD I have performed a history and examination and MDM of this patient, discussed the same with the dictator, and agree with the dictator's assessment and plan as written ,documented as a scribe. Based on total visit time, I have performed more than 50% of the visit. Objective - Vital Signs Vital signs: Vital Signs Temp 98 F 08/26/24 02:15 Pulse 64 08/26/24 02:15 Resp 16 08/26/24 02:15 BP 127/75 08/26/24 02:15 Pulse Ox 94 L 08/26/24 02:15 FiO2 Intake & Output 08/25/24 08/25/24 08/26/24 06:59 18:59 06:59 Intake Total 600 Output Total 1000 400 Balance -400 -400 Weight 67.132 kg Intake: Other 600 Output: Urine 1000 400 Other: Voiding Method External Catheter External Catheter - Labs CBC & Chem 7: 08/25/24 05:17 08/25/24 05:17 Labs: Abnormal Lab Results - Last 24 Hours (Table) 08/25/24 08/25/24 08/25/24 Range/Units 05:17 05:17 07:02 RBC 3.47 L (4.10-5.20) X 10*6/uL Hgb 11.4 L (12.0-15.0) g/dL Hct 34.7 L (37.2-46.3) % MCV 100.0 H (80.0-97.0) FL MCH 32.9 H (27.0-32.0) pg Carbon Dioxide 21.4 L (21.6-31.8) mmol/L Creatinine 0.5 L (0.6-1.5) mg/dL Glucose 120 H (70-110) mg/dL POC Glucose (mg/dL) 116 H (70-110) mg/dL Calcium 8.2 L (8.7-10.3) mg/dL 08/25/24 08/25/24 08/25/24 Range/Units 11:58 17:09 20:19 RBC (4.10-5.20) X 10*6/uL Hgb (12.0-15.0) g/dL Hct (37.2-46.3) % MCV (80.0-97.0) FL MCH (27.0-32.0) pg Carbon Dioxide (21.6-31.8) mmol/L Creatinine (0.6-1.5) mg/dL Glucose (70-110) mg/dL POC Glucose (mg/dL) 158 H 129 H 166 H (70-110) mg/dL Calcium (8.7-10.3) mg/dL
[2024-08-26 07:26] LABS: Glucose,Whole Blood 141 mg/dL (70-110)
[2024-08-26 12:21] LABS: Glucose,Whole Blood 178 mg/dL (70-110)
--- NOTE | 2024-08-26 12:31 | P.PN ---
Progress Note - Text Progress Note Date: 08/26/24 Postoperative day #3 Patient is seen and examined today at bedside. She feels like she has done better with her pain in her lower back but has some pain down lower over her sacrum. She has no new changes at her lower extremities. She is still having significant difficulty with any mobility. She has been able to get up out of bed with significant assistance Physical Exam Afebrile with stable vital signs Abdomen is soft nontender. Chest has good excursion deep and space expiration The incision site is clean dry and intact. No erythema there is no purulence. The incision sites are doing well. Her abdomen is soft nontender Extremities have not had neurologic change from prior to surgery. Calves and thighs were soft nontender without evidence of DVT. Assessment/Plan Postoperative day #3 status post kyphoplasty of L2-L3 and T12 which appear stable No new apparent fractures Patient is progressing as slowly from the surgery in terms of her mobility and pain control. She has significant deconditioning and has been difficult to get her to mobilize further. From a spine standpoint is okay for her to try to increase her mobility and ambulation. We will continue to increase the patient's mobilization with therapy. We will continue pain control with oral or IV medications. They are continuing medical management as well. I do not have plans for further surgical intervention at this point. We'll continue to follow patient closely.
[2024-08-26 13:36] LABS: Bilirubin,Urine Negative (Negative); Blood,Urine Negative (Negative); Color,Urine Colorless; Glucose,Urine (UA) Negative (Negative); Ketones,Urine Negative (Negative); Leukocyte Esterase,Urine Negative (Negative); Nitrite,Urine Negative (Negative); PH, Urine 6.5 (5.0-8.0); Protein,Urine Negative (Negative); Specific Gravity,Urine 1.009 (1.001-1.035); Urobilinogen,Urine <2.0 mg/dL (<2.0)
[2024-08-26 17:10] LABS: Glucose,Whole Blood 132 mg/dL (70-110)
[2024-08-26 20:13] LABS: Glucose,Whole Blood 129 mg/dL (70-110)
--- NOTE | 2024-08-27 05:38 | P.PN ---
Subjective Progress Note Date: 08/26/24 79-year-old female was brought in by family members because of altered mental status. Patient is well-known to me for her from her prolonged hospitalization at [facility] where she was treated for compression fractures. Patient was sent home on increased dose of [place] along with cyclobenzaprine dose of which was recently increased after the dose of cyclobenzaprine was increased patient started having confusional episodes and was lethargic. Patient was believed to have a UTI because of her back pain although patient does not have any other symptoms of UTI patient does not have leukocytosis does not have any fever patient was recently started on antibiotic considering that back pain as a UTI. Patient denies any dysuria or increased urgency or frequency. Patient has mild elevated potassium but this is hemolyzed sample. Patient is alert oriented but still confused 08/20/2024 Patient is evaluated in follow-up in the medical floor. Her electrolytes have significantly improved sodium of 135 potassium 4.2 BUN of 27.5 creatinine 0.7. White blood cell count remains normal at 6.42. She has been afebrile 96% on 2 L of oxygen via nasal cannula. She is currently off of her [place] and cyclobenzaprine. She is receiving Toradol for pain. Plan with home with home care on discharge however we are still pending the PT evaluation. 08/21/2024 Patient is seen in follow-up today with orthopedics Dr. Del Real following patient has multiple compression fractures and orthopedics had ordered lumbar and thoracic spine x-rays and discussed with the patient with subacute compression fractures and deformities noted at T12, L2, L3. Patient per nursing staff attempt to get up although was extremely weak and unable to due to the pain. Mentation is improved and at baseline with daughter at the bedside and patient is willing to proceed with surgical intervention. Patient will be n.p.o. and discussion of possible surgical intervention this evening or a.m. Patient is afebrile and with no reports of chest pain or shortness of breath. Patient has been tolerating diet with no reported nausea or vomiting. 08/22/2024 Patient seen in follow-up today currently n.p.o. with orthopedics following planning on kyphoplasty today and will await official report. Patient reports she was able to stand on the side of the bed and reports this has been the first time she has done this since hospitalization. Patient is currently lying flat in bed and reports her pain is managed on current regimen. Patient is afebrile with no reports of chest pain or shortness of breath. Patient reports is having bowel movements and voiding with no difficulties at this time. 08/25/2024 Patient is seen in follow-up this morning status post kyphoplasty was reported to doing relatively well and pain controlled on current regimen discussing possibly going home with home care. Patient may benefit from ECF although family does not want patient to go to rehab. Will arrange for home care with rehab in the home setting. Patient was reporting severe pain later in the afternoon when getting up in the lower back and sacral region. Will obtain x- rays for further evaluation. Continue with supportive care. Patient is afebrile with no reported chest pain or shortness of breath. Patient has been tolerating some diet and eating a little better. Recommended continue with bowel regimen. 08/26/2024 Patient is seen in follow-up today reports she is having severe pain in the sacral and lower buttock region reporting she is unable to walk and has immense pain. Family was concerned about a possible urinary tract infection or kidney stones and multiple images have been done with no stones detected. Will order urinalysis. Encouraged oral intake and increased activity as tolerated. Orthopedics recommending PT/OT therapy evaluation and working with physical therapy more as patient family is still discussing going home with home care and rehab in the home. Patient would likely benefit from ECF for continued strength and mobility. Will await reevaluation with physical therapy and discuss further regarding discharge planning. Review of Systems Constitutional: Denied any fatigue denied any fever. Cardio vascular: denied any chest pain, palpitations Gastrointestinal: denied any nausea, vomiting, diarrhea Pulmonary: Denied any shortness of breath cough Neurologic reports of significant back pain in the lower sacral and buttock area and feeling unable to ambulate . All inpatient medications were reviewed and appropriate changes in these medications as dictated in the interval history and assessment and plan. PHYSICAL EXAMINATION: GENERAL: The patient is alert and oriented x2, not in any acute distress. Well developed, well nourished. Elderly appearing, at baseline HEENT: Pupils are round and equally reacting to light. EOMI. No scleral icterus. No conjunctival pallor. Normocephalic, atraumatic. No pharyngeal erythema. No thyromegaly. CARDIOVASCULAR: S1 and S2 muffled PULMONARY: Diminished breath sounds bilaterally otherwise chest is clear to auscultation, no wheezing or crackles. ABDOMEN: Soft, nontender, nondistended, normoactive bowel sounds. No palpable organomegaly. MUSCULOSKELETAL: No joint swelling or deformity. EXTREMITIES: No cyanosis, clubbing, or pedal edema. NEUROLOGICAL: Gross neurological examination did not reveal any focal deficits. Diffusely weak SKIN: No rashes. Assessment: - Altered mental status medication use mostly because of cyclobenzaprine, improved and at baseline - Asymptomatic bacteriuria: I do not believe patient has urinary tract infection her back pain is secondary to compression fractures will hold off on any antibiotics at this time. - Compression fractures, lower back pain: Status post kyphoplasty of [id number] - Type 2 diabetes mellitus history - Essential tremor for which patient is on propranolol which will be continued - Hyperkalemia secondary to hemolysis, improved - GI prophylaxis - DVT prophylaxis: Lovenox - Full code Plan: Patient being evaluated by orthopedics is status post kyphoplasty as mentioned previously. Patient reporting severe pain in the buttock and sacral region when attempting to get up this afternoon. X-rays reviewed with orthopedics with no plans of surgical intervention Recommend reevaluation by PT/OT therapy as patient and family are adamant she is returning home. Home care is being arranged and necessary equipment for discharge Patient was potentially scheduled for discharge today although developed this increasing pain and images obtained showing no acute osseous abnormality with a subtle compression deformity suggested in the posterior aspect of L4 vertebral body superior endplate which is age-indeterminate with degenerative changes of the sacrum and bony pelvis. Orthopedics recommends getting up and working with physical therapy but no plans of further surgical intervention at this time Continue supportive care and okay for Ultram every 6 Family is concerned of possible urinary tract infection and urinalysis was performed and negative Recommend monitoring Accu-Cheks AC and at bedtime and monitor blood sugars closely and will continue current insulin regimen and adjust if needed Await orthopedic clearance to determine discharge planning. Will await reevalua tion with physical therapy and discussed with case management/social work regarding discharge planning Due to multiple complex medical issues, overall prognosis is guarded The impression and plan of care has been dictated by Gladys Ko, Nurse Practitioner as directed. Dr. Cheko MD I have performed a history and examination and MDM of this patient, discussed the same with the dictator, and agree with the dictator's assessment and plan as written ,documented as a scribe. Based on total visit time, I have performed more than 50% of the visit. Objective - Vital Signs Vital signs: Vital Signs Temp 98.1 F 08/26/24 13:55 Pulse 63 08/26/24 13:55 Resp 19 08/26/24 13:55 BP 108/67 08/26/24 13:55 Pulse Ox 94 L 08/26/24 13:55 FiO2 Intake & Output 08/25/24 08/26/24 08/26/24 18:59 06:59 18:59 Intake Total 480 Output Total 400 1100 550 Balance -400 -1100 -70 Weight 67.132 kg Intake: Oral 480 Output: Urine 400 1100 550 Other: Voiding Method External Catheter External Catheter - Labs CBC & Chem 7: 08/25/24 05:17 08/25/24 05:17 Labs: Abnormal Lab Results - Last 24 Hours (Table) 08/25/24 08/25/24 08/26/24 Range/Units 17:09 20:19 07:24 POC Glucose (mg/dL) 129 H 166 H 141 H (70-110) mg/dL 08/26/24 Range/Units 12:18 POC Glucose (mg/dL) 178 H (70-110) mg/dL
[2024-08-27 07:03] LABS: Glucose,Whole Blood 157 mg/dL (70-110)
[2024-08-27] MEDS: HYDROcodone/APAP 5-325MG 1 EACH TAB PO PRN (08:18)
[2024-08-27 08:28] LABS: Basophils # (A) 0.04 X 10*3/uL (0.00-0.10); Basophils % (A) 0.5 %; Eosinophils # (A) 0.18 X 10*3/uL (0.04-0.35); Eosinophils % (A) 2.2 %; HCT 38.7 % (37.2-46.3); HGB 12.7 g/dL (12.0-15.0); Immature Grans, Automated 0.50 %; Lymphocytes # (A) 2.57 X 10*3/uL (0.90-5.00); Lymphocytes % (A) 31.8 %; MCH 32.3 pg (27.0-32.0); MCHC 32.8 g/dL (32.0-37.0); MCV 98.5 FL (80.0-97.0); Monocytes # (A) 1.01 X 10*3/uL (0.20-1.00); Monocytes % (A) 12.5 %; NRBC Per 100 WBC 0 X 10*3/uL (0.00-0.01); Neutrophils # (A) 4.25 X 10*3/uL (1.80-7.70); Neutrophils % (A) 52.5 %; Platelet Count 357 X 10*3/uL (140-440); RBC 3.93 X 10*6/uL (4.10-5.20); RDW 13.6 % (11.5-14.5); WBC 8.09 X 10*3/uL (4.50-10.00)
[2024-08-27 08:32] LABS: Anion Gap 12.70 mmol/L (4.00-12.00); BUN/Creat Ratio 23.20 Ratio (12.00-20.00); Blood Urea Nitrogen 11.6 mg/dL (9.0-27.0); Calcium 8.7 mg/dL (8.7-10.3); Carbon Dioxide 21.3 mmol/L (21.6-31.8); Chloride 98 mmol/L (96-109); Glucose 160 mg/dL (70-110); Potassium 4.3 mmol/L (3.5-5.5); Sodium 132 mmol/L (135-145)
[2024-08-27 12:19] LABS: Glucose,Whole Blood 176 mg/dL (70-110)
[2024-08-27] MEDS: BARIUM SULFATE 2% - 450 ML ORAL.SUSP BOTTLE PO PRN (13:21)
[2024-08-27] MEDS: methylPREDNISolone SOD SUCCI 125 MG/2 ML VIAL IV STA (13:26)
[2024-08-27] MEDS: diphenhydrAMINE 50 MG/ML 1 ML VIAL IVP STA (13:26)
[2024-08-27] MEDS: FAMOTIDINE 20 MG/2 ML VIAL IV STA (13:26)
--- NOTE | 2024-08-27 13:30 | P.PN ---
Progress Note - Text Progress Note Date: 08/27/24 Orthopedic spine: History of present illness: Patient is a pleasant 79-year-old female known to our service who is seen examined at bedside for further evaluation of her thoracic or lumbar spine. She was recently seen in our office on 08/19/2024. She is known to have compression fracture deformities of T11, L2, and L3. She was being treated for compression fracture deformity in the outpatient setting. Patient was recently admitted to [facility] for evaluation of kidney stones. Patient was not found to have kidney stones. She was admitted for 2 weeks. During this time her back pain significantly worsened. Multiple imaging modalities were taken during her admission to [facility]. MRI imaging was reviewed in our office yesterday. She was found to have multiple compression fracture deformities again stated at T11, L2, and L3. Patient had been progressing over time for her treatment of compression fracture deformity before her symptoms significantly worsened during her admission to [facility]. X-ray imaging of the thoracic and lumbar spine were taken during her admission to the hospital which showed evidence of known compression fractures of T11, L2, and L3 as well as new fracture of T12. Patient has had significant difficulty with her mobilization. She is not having significant improvement during her admission to the hospital. It was discussed proceeding forward with T12, L2, and L3 kyphoplasty with biopsy which was performed on 08/23/2024. Postoperatively, patient has had significant improvement of her symptoms in regards to her thoracic and lumbar pain.. She states she is not currently experiencing any significant thoracic or lumbar pain. She has, however, had difficulty with her mobilization. Due to this, she has remained in the hospital. Patient states she will discharge home with home therapy. She refuses discharge to a rehabilitation facility. Patient states she has granddaughters at home as well as her daughter to help facilitate in her mobility and ambulation. She also has a walker at home. She has had some difficulty urinary tension this morning required straight catheterization. Patient states she was hospitalized for couple weeks for evaluation of her kidneys for possible kidney stones at [facility]. She follows with urology there who is planning for a scope. Patient was experiencing altered mental status changes after change in medication following her previous discharge from [facility]. She has had significant improvement in regards to her mental status during her admission here at [facility]. Toradol has been discontinued. Pain currently being controlled with tramadol. Physical exam: Patient is awake, alert, and oriented 3 Postoperative day #4 Vital signs stable Adequate chest excursion with deep inspiration and expiration Patient declines examination of her thoracic or lumbar spine at the bedside Dressings over the kyphoplasty sites are clean, dry, and intact No drainage, erythema, bruising, or obvious sign of infection at the thoracic or lumbar spines Patient is able to roll over in bed independently without significant difficulty Dorsiflexion, plantarflexion, and extensor hallucis longus positive sustained bilaterally Lower extremity strength 5/5 bilaterally Straight leg test negative bilateral lower extremities No signs or symptoms of DVT; no calf pain Neurovascularly intact Pertinent studies: X-rays of the thoracic and lumbar spines taken on 08/20/2024: T12 acute compression fracture deformity; acute/subacute compression fracture deformities of L2 and L3; chronic compression fracture deformity of T11 Assessment: Status post T12, L2, and L3 kyphoplasty with biopsy Acute compression fracture deformities of T12, L2, and L3 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 Patient has acute compression fracture deformity of T12 and acute/subacute compression fracture deformities of L2 and L3. She underwent T12, L2, and L3 kyphoplasty with biopsy on 08/23/2024. Since that time her thoracic and lumbar pain has been significantly improved. She does not feel she is having significant pain. She has had significant difficulty with her mobilization over the past couple days. She was originally planning for discharge hopefully this past Sunday. She has been able to help with transfers to a bedside commode and some ambulation down the valdes. Other than that, she has not had much mobility or ambulation. Patient states she is having difficulty sitting upright and prefers to be lying flat. She is progressing slowly postoperatively even though she states she does not have significant thoracic or lumbar pain. Given her lack of improvement in terms of mobilization, it was strongly recommended for her to consider discharge to a rehabilitation facility. Patient is adamantly against a rehabilitation facility. She said she will not sign paperwork to attend a rehabilitation facility. She plans to discharge home with home health and home therapy with the assistance of her granddaughters and daughter. She states she has a walker at home. We discussed if cleared by medicine she could discharge home today. However, and strongly recommended multiple times for her to be discharged to a rehabilitation facility as I feel she requires further care prior to returning home. We did discuss we would plan for prescription for tramadol at the time of discharge. This will be sent to the patient's pharmacy per request of the patient. We would defer muscle relaxer medication to medicine given her previous altered mental status with cyclobenzaprine. MAPS has been reviewed on 08/25/2024, with an Overall Overdose Risk Score of 20. An "Opiod Start Talking" Form has been signed and placed in the patient's chart. A prescription has been written for tramadol 50 mg, 1 tab, every 6 hours, as needed for acute pain, dispense #28. Patient may be discharged from an orthopedic spine standpoint. Patient may follow-up with Marco Tanner PA-C or Dr. Sae Del Real at [facility] in 2-3 weeks following discharge. 2. Patient will work with physical therapy today. 3. Patient will continue to be seen and examined by medicine for her other medical diagnoses. 4. Medicine will manage the patient's urinary retention. She did require straight catheterization. She has been following with urology after 2-week inpatient admittance to [facility]. She would like to follow-up with her neurologist. We did discuss if she is unable to void independently she may be discharged home with a Aj catheter intact. I agree with the above. The patient's fractures are stable she we do not have any further plans for surgical intervention. She should try to mobilize and increase her mobility as she is able. I think that she needs significant assistance and that she would be safest with subacute rehab or usp after discharge. She is adamant that she would like to go home rather than go to rehab. We tried to discuss this with her and she understands her concerns.
[2024-08-27 17:42] LABS: Glucose,Whole Blood 149 mg/dL (70-110)
--- NOTE | 2024-08-27 17:46 | CT ---
EXAMINATION TYPE: CT abdomen pelvis wo con CT DLP: 729.3 mGycm, Automated exposure control for dose reduction was used. DATE OF EXAM: 08/27/2024 5:30 PM COMPARISON: CT abdomen pelvis 03/02/2023, 02/04/2015 CLINICAL INDICATION:Female, 79 years old with history of bladder pain, urinary retention, abd pain; b ladder pain, urinary retention, abdominal pain TECHNIQUE: Standard CT of the abdomen and pelvis following the administration of oral contrast. Cor onal and sagittal reformats were performed. FINDINGS: LOWER CHEST: Mild posterior dependent subsegmental atelectasis is noted. Mitral annulus small calcifi cations. Some residual enteric contrast within the distal esophagus. Elevation of the right hemidiaph ragm. ABDOMEN LIVER: Unremarkable GALLBLADDER AND BILE DUCTS: The gallbladder is surgically absent. No biliary ductal dilatation. PANCREAS: Moderate generalized atrophy. SPLEEN: Unremarkable. ADRENAL GLANDS: Unremarkable. KIDNEYS AND URETERS: No evidence of hydronephrosis or renal calculus. Prominent right extrarenal pelv is. PELVIS BLADDER: Moderately distended. No wall thickening or surrounding inflammatory changes. REPRODUCTIVE: The uterus is surgically absent. There is a surgical clip adjacent to the vaginal cuff. ABDOMEN & PELVIS STOMACH AND BOWEL: Small hiatal hernia, duodenum is unremarkable. Sigmoid diverticulosis without evid ence for acute diverticulitis. Enteric contrast reaches the rectum. No focal bowel wall thickening or surrounding inflammatory changes. The appendix is not identified. No inflammatory changes within the right lower quadrant. No evidence of bowel obstruction. PERITONEUM: No evidence of pneumoperitoneum or free fluid. VASCULATURE: Mild atherosclerotic calcifications are present throughout the abdominal aorta and its b ranches. No evidence of aortic aneurysm. MUSCULOSKELETAL: No acute osseous abnormalities. Multilevel anterior osteophytosis of the visualized lower thoracic spine. Vertebral augmentation changes involving the T12, L2, and L3 vertebral bodies. Chronic anterior wedge compression deformity of the T11 vertebral body with approximately 5% height l oss at 1 mm of retropulsion. LYMPH NODES: No gross evidence for lymphadenopathy. SOFT TISSUE/ABDOMINAL WALL: Small fat filled umbilical hernia. Few anterior abdominal wall subcutaneo us tissue focal opacities likely related to medication injection. IMPRESSION: 1. No CT evidence for acute abdominal process pelvic process. 2. Moderately distended urinary bladder. 3. Sigmoid diverticulosis without evidence for acute diverticulitis. [facility], , 08/27/2024 5:44 PM
[2024-08-27 20:15] LABS: Glucose,Whole Blood 191 mg/dL (70-110)
[2024-08-28 07:04] LABS: Glucose,Whole Blood 167 mg/dL (70-110)
[2024-08-28 07:52] LABS: Basophils # (A) 0.03 X 10*3/uL (0.00-0.10); Basophils % (A) 0.3 %; Eosinophils # (A) 0.16 X 10*3/uL (0.04-0.35); Eosinophils % (A) 1.9 %; HCT 38.9 % (37.2-46.3); HGB 12.8 g/dL (12.0-15.0); Immature Grans, Automated 0.70 %; Lymphocytes # (A) 2.53 X 10*3/uL (0.90-5.00); Lymphocytes % (A) 29.4 %; MCH 32.4 pg (27.0-32.0); MCHC 32.9 g/dL (32.0-37.0); MCV 98.5 FL (80.0-97.0); Monocytes # (A) 1.10 X 10*3/uL (0.20-1.00); Monocytes % (A) 12.8 %; NRBC Per 100 WBC 0 X 10*3/uL (0.00-0.01); Neutrophils # (A) 4.72 X 10*3/uL (1.80-7.70); Neutrophils % (A) 54.9 %; Platelet Count 381 X 10*3/uL (140-440); RBC 3.95 X 10*6/uL (4.10-5.20); RDW 13.8 % (11.5-14.5); WBC 8.60 X 10*3/uL (4.50-10.00)
[2024-08-28 08:07] LABS: Anion Gap 12.90 mmol/L (4.00-12.00); BUN/Creat Ratio 19.83 Ratio (12.00-20.00); Blood Urea Nitrogen 11.9 mg/dL (9.0-27.0); Calcium 8.9 mg/dL (8.7-10.3); Carbon Dioxide 21.1 mmol/L (21.6-31.8); Chloride 100 mmol/L (96-109); Glucose 180 mg/dL (70-110); Potassium 4.5 mmol/L (3.5-5.5); Sodium 134 mmol/L (135-145)
--- NOTE | 2024-08-28 09:02 | P.PN ---
Progress Note - Text Progress Note Date: 08/28/24 Postoperative day #4 Patient is seen and examined today at bedside. The patient feels that her preoperative pain has changed and made good progress in terms of the fractures. She has had chronic low back pain with lower extremity pain due to her severe degenerative spondylosis and that continues to give her issues with her mobility. Pain is being controlled with medication. She has made some progress with her mobility. She requires significant assistance but has been getting out of bed. Physical Exam Afebrile with stable vital signs Abdomen is soft nontender. Chest has good excursion deep and space expiration The incision site is clean dry and intact. No erythema there is no purulence. The incision sites are clear Extremities have not had neurologic change from prior to surgery. She has sustained dorsiflexion plantarflexion EHL intact Calves and thighs were soft nontender without evidence of DVT. Assessment/Plan Postoperative day #4 status post kyphoplasty T12 L2 L3-4 subacute compression fractures which are stable Degenerative spondylosis lumbar spine Chronic low back pain Patient is progressing very slowly from the surgery. Her fracture sites are stable but she has chronic issues with her low back which give her significant limitations. I think the patient is a candidate for interventional pain management for the possibility of facet and epidural steroid injections. These can be done through pain management on outpatient basis. The patient continues to have significant needs with mobility. She is adamant that she is going to go home and not to rehab or usp. We had extensive discussions about this and about her safety and her improvement with therapy with inpatient usp or rehab but she is adamant to go home. She says she has significant support there and so we will try to arrange home health for her with her family support. From a orthopedic spine standpoint is okay for the patient be discharged if she is cleared by medicine We will continue to increase the patient's mobilization with therapy.
--- NOTE | 2024-08-28 10:31 | P.PN ---
Subjective Progress Note Date: 08/27/24 79-year-old female was brought in by family members because of altered mental status. Patient is well-known to me for her from her prolonged hospitalization at [facility] where she was treated for compression fractures. Patient was sent home on increased dose of [place] along with cyclobenzaprine dose of which was recently increased after the dose of cyclobenzaprine was increased patient started having confusional episodes and was lethargic. Patient was believed to have a UTI because of her back pain although patient does not have any other symptoms of UTI patient does not have leukocytosis does not have any fever patient was recently started on antibiotic considering that back pain as a UTI. Patient denies any dysuria or increased urgency or frequency. Patient has mild elevated potassium but this is hemolyzed sample. Patient is alert oriented but still confused 08/20/2024 Patient is evaluated in follow-up in the medical floor. Her electrolytes have significantly improved sodium of 135 potassium 4.2 BUN of 27.5 creatinine 0.7. White blood cell count remains normal at 6.42. She has been afebrile 96% on 2 L of oxygen via nasal cannula. She is currently off of her [place] and cyclobenzaprine. She is receiving Toradol for pain. Plan with home with home care on discharge however we are still pending the PT evaluation. 08/21/2024 Patient is seen in follow-up today with orthopedics Dr. Del Real following patient has multiple compression fractures and orthopedics had ordered lumbar and thoracic spine x-rays and discussed with the patient with subacute compression fractures and deformities noted at T12, L2, L3. Patient per nursing staff attempt to get up although was extremely weak and unable to due to the pain. Mentation is improved and at baseline with daughter at the bedside and patient is willing to proceed with surgical intervention. Patient will be n.p.o. and discussion of possible surgical intervention this evening or a.m. Patient is afebrile and with no reports of chest pain or shortness of breath. Patient has been tolerating diet with no reported nausea or vomiting. 08/22/2024 Patient seen in follow-up today currently n.p.o. with orthopedics following planning on kyphoplasty today and will await official report. Patient reports she was able to stand on the side of the bed and reports this has been the first time she has done this since hospitalization. Patient is currently lying flat in bed and reports her pain is managed on current regimen. Patient is afebrile with no reports of chest pain or shortness of breath. Patient reports is having bowel movements and voiding with no difficulties at this time. 08/25/2024 Patient is seen in follow-up this morning status post kyphoplasty was reported to doing relatively well and pain controlled on current regimen discussing possibly going home with home care. Patient may benefit from ECF although family does not want patient to go to rehab. Will arrange for home care with rehab in the home setting. Patient was reporting severe pain later in the afternoon when getting up in the lower back and sacral region. Will obtain x- rays for further evaluation. Continue with supportive care. Patient is afebrile with no reported chest pain or shortness of breath. Patient has been tolerating some diet and eating a little better. Recommended continue with bowel regimen. 08/26/2024 Patient is seen in follow-up today reports she is having severe pain in the sacral and lower buttock region reporting she is unable to walk and has immense pain. Family was concerned about a possible urinary tract infection or kidney stones and multiple images have been done with no stones detected. Will order urinalysis. Encouraged oral intake and increased activity as tolerated. Orthopedics recommending PT/OT therapy evaluation and working with physical therapy more as patient family is still discussing going home with home care and rehab in the home. Patient would likely benefit from ECF for continued strength and mobility. Will await reevaluation with physical therapy and discuss further regarding discharge planning. 08/27/2024 Patient is seen in follow-up today laying flat in the bed reporting continued lower abdominal and pelvic region pain and unsure if it is coming from her back or her bladder. Patient follows with Dr. Goldstein out of [facility] for recurrent bladder issues and has recurrent urinary tract infections and has been having this pain chronically for quite some time. Per his daughter at the bedside patient reports she was recently started on antibiotic in the outpatient setting by this urologist although has not been given any antibiotics here. Repeat urinalysis was performed twice and was negative and was determined is likely asymptomatic bacteriuria. Patient is very immobile and almost maximum assist on attempting to work with physical therapy. Daughter reports patient got up and walked with herself to the commode although this was not witnessed. Patient has been encouraged to increase activity as tolerated and has been cleared by orthopedics to work with physical therapy. Would recommend working with physical therapy daily as patient is significantly weak with prolonged hospitalization and would benefit from ECF although family does not want to take her to the rehab. Plans on returning home with home care. Review of Systems Constitutional: Denied any fatigue denied any fever. Anxious to ambulate and hesitant Cardio vascular: denied any chest pain, palpitations Gastrointestinal: denied any nausea, vomiting, diarrhea Pulmonary: Denied any shortness of breath cough Neurologic reports of significant back pain in the lower sacral and buttock area and feeling unable to ambulate . All inpatient medications were reviewed and appropriate changes in these medications as dictated in the interval history and assessment and plan. PHYSICAL EXAMINATION: GENERAL: The patient is alert and oriented x2, not in any acute distress. Well developed, well nourished. Elderly appearing, at baseline HEENT: Pupils are round and equally reacting to light. EOMI. No scleral icterus. No conjunctival pallor. Normocephalic, atraumatic. No pharyngeal erythema. No thyromegaly. CARDIOVASCULAR: S1 and S2 muffled PULMONARY: Diminished breath sounds bilaterally otherwise chest is clear to auscultation, no wheezing or crackles. ABDOMEN: Soft, nontender, nondistended, normoactive bowel sounds. No palpable organomegaly. MUSCULOSKELETAL: No joint swelling or deformity. EXTREMITIES: No cyanosis, clubbing, or pedal edema. NEUROLOGICAL: Gross neurological examination did not reveal any focal deficits. Diffusely weak SKIN: No rashes. Assessment: - Altered mental status medication use mostly because of cyclobenzaprine, improved and at baseline - Asymptomatic bacteriuria: urinary tract infection ruled out -Chronic recurrent urinary tract infections follows with urologist outpatient - Compression fractures, lower back pain: Status post kyphoplasty of [id number] - Type 2 diabetes mellitus history - Essential tremor for which patient is on propranolol which will be continued - Hyperkalemia secondary to hemolysis, improved - GI prophylaxis - DVT prophylaxis: Lovenox - Full code Plan: Patient being evaluated by orthopedics is status post kyphoplasty as mentioned previously. Patient reporting severe pain in the buttock and sacral region when attempting to get up this afternoon. X-rays reviewed with orthopedics with no plans of surgical intervention. No new fractures noted. Orthopedics recommending working with physical therapy daily and has instructed patient and family members to comply with this in order to evaluate and treat. Recommend PT/OT therapy daily as patient and family are adamant she is returning home. Home care is being arranged and necessary equipment for discharge Continue with pain management and monitor closely with IV narcotics given patient's age, would recommend avoiding IV narcotics if possible Continue supportive care and okay for Ultram every 6 Family is concerned of possible urinary tract infection and urinalysis was performed and negative. Patient follows with Dr. Goldstein in the outpatient setting for chronic urinary tract infections and bladder pain and has been ongoing. Daughter reports was given antibiotics and only took 1 or 2 pills before coming here and is concerned about a urinary tract infection. Will submit urine culture and await urology input and recommendations CT abdomen pelvis ordered as well as patient is having continued lower pelvic pain Recommend monitoring Accu-Cheks AC and at bedtime and monitor blood sugars closely and will continue current insulin regimen and adjust if needed Await orthopedic clearance to determine discharge planning. Will await re evaluation with physical therapy and discussed with case management/social work regarding discharge planning. Per nursing staff patient is very resistant to get up and motivate and ambulate and refusing as well. Will discuss further with physical therapy and orthopedics regarding treatment plan moving forward Due to multiple complex medical issues, overall prognosis is guarded The impression and plan of care has been dictated by Gladys Ko, Nurse Practitioner as directed. Dr. Cheko MD I have performed a history and examination and MDM of this patient, discussed the same with the dictator, and agree with the dictator's assessment and plan as written ,documented as a scribe. Based on total visit time, I have performed more than 50% of the visit. Objective - Vital Signs Vital signs: Vital Signs Temp 98.5 F 08/27/24 07:17 Pulse 65 08/27/24 08:36 Resp 19 08/27/24 08:36 BP 133/82 08/27/24 07:17 Pulse Ox 94 L 08/27/24 07:17 FiO2 Intake & Output 08/26/24 08/27/24 08/27/24 18:59 06:59 18:59 Intake Total 960 240 Output Total 1050 978 500 Balance -90 -978 -260 Intake: Oral 960 240 Output: Urine 1050 500 500 Straight 500 Post Void Residual 478 Other: Voiding Method External Catheter External Catheter External Catheter # Bowel Movements 1 - Labs CBC & Chem 7: 08/28/24 05:50 08/28/24 05:50 Labs: Abnormal Lab Results - Last 24 Hours (Table) 08/26/24 08/26/24 08/27/24 Range/Units 17:07 20:12 05:49 RBC 3.93 L (4.10-5.20) X 10*6/uL MCV 98.5 H (80.0-97.0) FL MCH 32.3 H (27.0-32.0) pg Monocytes # 1.01 H (0.20-1.00) X 10*3/uL Sodium (135-145) mmol/L Carbon Dioxide (21.6-31.8) mmol/L Anion Gap (4.00-12.00) mmol/L Creatinine (0.6-1.5) mg/dL BUN/Creatinine Ratio (12.00-20.00) Ratio Glucose (70-110) mg/dL POC Glucose (mg/dL) 132 H 129 H (70-110) mg/dL 08/27/24 08/27/24 08/27/24 Range/Units 05:49 06:58 12:18 RBC (4.10-5.20) X 10*6/uL MCV (80.0-97.0) FL MCH (27.0-32.0) pg Monocytes # (0.20-1.00) X 10*3/uL Sodium 132 L (135-145) mmol/L Carbon Dioxide 21.3 L (21.6-31.8) mmol/L Anion Gap 12.70 H (4.00-12.00) mmol/L Creatinine 0.5 L (0.6-1.5) mg/dL BUN/Creatinine Ratio 23.20 H (12.00-20.00) Ratio Glucose 160 H (70-110) mg/dL POC Glucose (mg/dL) 157 H 176 H (70-110) mg/dL
[2024-08-28 12:02] LABS: Glucose,Whole Blood 175 mg/dL (70-110)
--- NOTE | 2024-08-28 12:15 | P.GSCN ---
History of Present Illness Consult date: 08/28/24 Reason for Consult: UTI, abdominal pain History of present illness: 79-year-old female with a recent compression fracture and a kyphoplasty by Dr. Stiles on August 23. Urology is consulted for suprapubic pain. She indicated she has been having pain in the lower abdomen that radiates into her back, she indicates it is more of a sharp shooting pain with spasms. Worsened with standing and improved after having bowel movement. She indicated she is not having any dysuria any difficulty voiding. She did initially have an elevated residual at 478 requiring a straight cath and repeat residual was 300 mL. No improvement with bladder emptying. Urology was consulted to evaluate if this is of a bladder etiology. She did have a recent UTI that was treated as an outpatient, indicates symptoms are not similar to a UTI. CT abdomen pelvis was done this morning which showed no evidence of hydronephrosis ureteral or bladder stones, bladder was moderately distended. Urine analysis is negative for blood or UTI Past Medical History Past Medical History: Diabetes Mellitus, Hypertension, Thyroid Disorder Additional Past Medical History / Comment(s): tremors, compression fractures in spine History of Any Multi-Drug Resistant Organisms: None Reported Past Surgical History: Appendectomy, Cholecystectomy, Hysterectomy Additional Past Surgical History / Comment(s): thyroid nodules Past Anesthesia/Blood Transfusion Reactions: No Reported Reaction Past Psychological History: No Psychological Hx Reported Smoking Status: Former smoker Past Alcohol Use History: None Reported Additional Past Alcohol Use History / Comment(s): smoked in 20's. Past Drug Use History: None Reported Medications and Allergies Home Medications Medication Instructions Recorded Confirmed Type Cyclobenzaprine [Flexeril] 10 mg PO BID PRN 08/19/24 08/19/24 History HYDROcodone/APAP 10-325MG [[place] 1 tab PO Q6H 08/19/24 08/19/24 History 10-325] Nitrofurantoin Monohyd/M-Cryst 100 mg PO BID 08/19/24 08/19/24 History [Macrobid] Ondansetron Odt [Zofran Odt] 4 mg PO DIRECTED PRN 08/19/24 08/19/24 History Phenazopyridine [Pyridium] 100 mg PO TID PRN 08/19/24 08/19/24 History Propranolol HCl [Propranolol HCl 120 mg PO BID 08/19/24 08/19/24 History ER] Sennosides 8.6 mg PO DAILY PRN 08/19/24 08/19/24 History polyethylene glycoL 3350 [Miralax] 17 gm PO DAILY PRN 08/19/24 08/19/24 History traMADol HCl [Ultram] 50 mg PO Q6H PRN #28 tab 08/25/24 Rx Allergies Allergy/AdvReac Type Severity Reaction Status Date / Time Iodinated Contrast Media Allergy Severe Dyspnea Verified 08/19/24 15:08 naproxen [From Aleve] Allergy Unknown Unknown Verified 08/19/24 15:08 codeine Allergy Rash/Hives Verified 08/19/24 15:08 Penicillins Allergy Rash/Hives Verified 08/19/24 15:08 Sulfa (Sulfonamide Allergy Rash/Hives Verified 08/19/24 15:08 Antibiotics) levofloxacin AdvReac Unknown Verified 08/19/24 15:08 Surgical - Exam Vital Signs Temp Pulse Resp BP Pulse Ox 97.4 F L 86 22 127/86 98 08/19/24 11:12 08/19/24 11:12 08/19/24 11:12 08/19/24 11:12 08/19/24 11:12 - General no distress, no pain - Eyes normal ocular movement, no pale - ENT normal nares, normal mucosa - Respiratory normal expansion, normal respiratory effort - Abdomen Abdomen: soft, tender (Lower abdomen), no distended - Psychiatric oriented to time, oriented to person, oriented to place Results - Labs 08/28/24 05:50 08/28/24 05:50 Abnormal Lab Results - Last 24 Hours (Table) 08/27/24 08/27/24 08/27/24 Range/Units 12:18 17:41 20:10 RBC (4.10-5.20) X 10*6/uL MCV (80.0-97.0) FL MCH (27.0-32.0) pg Immature Gran # (0.00-0.04) X 10*3/uL Monocytes # (0.20-1.00) X 10*3/uL Sodium (135-145) mmol/L Carbon Dioxide (21.6-31.8) mmol/L Anion Gap (4.00-12.00) mmol/L Glucose (70-110) mg/dL POC Glucose (mg/dL) 176 H 149 H 191 H (70-110) mg/dL 08/28/24 08/28/24 08/28/24 Range/Units 05:50 05:50 07:02 RBC 3.95 L (4.10-5.20) X 10*6/uL MCV 98.5 H (80.0-97.0) FL MCH 32.4 H (27.0-32.0) pg Immature Gran # 0.06 H (0.00-0.04) X 10*3/uL Monocytes # 1.10 H (0.20-1.00) X 10*3/uL Sodium 134 L (135-145) mmol/L Carbon Dioxide 21.1 L (21.6-31.8) mmol/L Anion Gap 12.90 H (4.00-12.00) mmol/L Glucose 180 H (70-110) mg/dL POC Glucose (mg/dL) 167 H (70-110) mg/dL 08/28/24 Range/Units 11:59 RBC (4.10-5.20) X 10*6/uL MCV (80.0-97.0) FL MCH (27.0-32.0) pg Immature Gran # (0.00-0.04) X 10*3/uL Monocytes # (0.20-1.00) X 10*3/uL Sodium (135-145) mmol/L Carbon Dioxide (21.6-31.8) mmol/L Anion Gap (4.00-12.00) mmol/L Glucose (70-110) mg/dL POC Glucose (mg/dL) 175 H (70-110) mg/dL Diabetes panel 08/28/24 Range/Units 05:50 Sodium 134 L (135-145) mmol/L Potassium 4.5 (3.5-5.5) mmol/L Chloride 100 (96-109) mmol/L Carbon Dioxide 21.1 L (21.6-31.8) mmol/L BUN 11.9 (9.0-27.0) mg/dL Creatinine 0.6 (0.6-1.5) mg/dL Glucose 180 H (70-110) mg/dL Calcium 8.9 (8.7-10.3) mg/dL Calcium panel 08/28/24 Range/Units 05:50 Calcium 8.9 (8.7-10.3) mg/dL Pituitary panel 08/28/24 Range/Units 05:50 Sodium 134 L (135-145) mmol/L Potassium 4.5 (3.5-5.5) mmol/L Chloride 100 (96-109) mmol/L Carbon Dioxide 21.1 L (21.6-31.8) mmol/L BUN 11.9 (9.0-27.0) mg/dL Creatinine 0.6 (0.6-1.5) mg/dL Glucose 180 H (70-110) mg/dL Calcium 8.9 (8.7-10.3) mg/dL Adrenal panel 08/28/24 Range/Units 05:50 Sodium 134 L (135-145) mmol/L Potassium 4.5 (3.5-5.5) mmol/L Chloride 100 (96-109) mmol/L Carbon Dioxide 21.1 L (21.6-31.8) mmol/L BUN 11.9 (9.0-27.0) mg/dL Creatinine 0.6 (0.6-1.5) mg/dL Glucose 180 H (70-110) mg/dL Calcium 8.9 (8.7-10.3) mg/dL Assessment and Plan Assessment: 79-year-old female with lower abdominal pain with radiation to the back. Her pain is not consistent with bladder spasms as is not associated with voiding she is not having any dysuria. Even with bladder emptying there is no change in pain. Urine analysis is within normal limits. Will order bladder ultrasound, to completely rule out any bladder pathology but at this time I would recommend evaluating other etiology.
--- NOTE | 2024-08-28 13:35 | US ---
EXAMINATION TYPE: US bladder DATE OF EXAM: 08/28/2024 COMPARISON: NONE CLINICAL INDICATION: Female, 79 years old with history of Suprapubic tenderness; TECHNIQUE: Grayscale and color doppler imaging of the bilateral kidneys and urinary bladder. FINDINGS: EXAM MEASUREMENTS [employer]TE [employer]ER NOTES: Color Doppler performed to assess ureteral jets. Bilateral Jets seen: Yes Bladder volume: 316.3ml ?outpouching within bladder wall: 3.1x2.5x2.2cm IMPRESSION: Bladder diverticulum noted. [facility], , 08/28/2024 1:33 PM
[2024-08-28 17:18] LABS: Glucose,Whole Blood 132 mg/dL (70-110)
[2024-08-28 20:28] LABS: Glucose,Whole Blood 199 mg/dL (70-110)
--- NOTE | 2024-08-28 23:32 | P.PN ---
Subjective Progress Note Date: 08/28/24 79-year-old female was brought in by family members because of altered mental status. Patient is well-known to me for her from her prolonged hospitalization at [facility] where she was treated for compression fractures. Patient was sent home on increased dose of [place] along with cyclobenzaprine dose of which was recently increased after the dose of cyclobenzaprine was increased patient started having confusional episodes and was lethargic. Patient was believed to have a UTI because of her back pain although patient does not have any other symptoms of UTI patient does not have leukocytosis does not have any fever patient was recently started on antibiotic considering that back pain as a UTI. Patient denies any dysuria or increased urgency or frequency. Patient has mild elevated potassium but this is hemolyzed sample. Patient is alert oriented but still confused 08/20/2024 Patient is evaluated in follow-up in the medical floor. Her electrolytes have significantly improved sodium of 135 potassium 4.2 BUN of 27.5 creatinine 0.7. White blood cell count remains normal at 6.42. She has been afebrile 96% on 2 L of oxygen via nasal cannula. She is currently off of her [place] and cyclobenzaprine. She is receiving Toradol for pain. Plan with home with home care on discharge however we are still pending the PT evaluation. 08/21/2024 Patient is seen in follow-up today with orthopedics Dr. Del Real following patient has multiple compression fractures and orthopedics had ordered lumbar and thoracic spine x-rays and discussed with the patient with subacute compression fractures and deformities noted at T12, L2, L3. Patient per nursing staff attempt to get up although was extremely weak and unable to due to the pain. Mentation is improved and at baseline with daughter at the bedside and patient is willing to proceed with surgical intervention. Patient will be n.p.o. and discussion of possible surgical intervention this evening or a.m. Patient is afebrile and with no reports of chest pain or shortness of breath. Patient has been tolerating diet with no reported nausea or vomiting. 08/22/2024 Patient seen in follow-up today currently n.p.o. with orthopedics following planning on kyphoplasty today and will await official report. Patient reports she was able to stand on the side of the bed and reports this has been the first time she has done this since hospitalization. Patient is currently lying flat in bed and reports her pain is managed on current regimen. Patient is afebrile with no reports of chest pain or shortness of breath. Patient reports is having bowel movements and voiding with no difficulties at this time. 08/25/2024 Patient is seen in follow-up this morning status post kyphoplasty was reported to doing relatively well and pain controlled on current regimen discussing possibly going home with home care. Patient may benefit from ECF although family does not want patient to go to rehab. Will arrange for home care with rehab in the home setting. Patient was reporting severe pain later in the afternoon when getting up in the lower back and sacral region. Will obtain x- rays for further evaluation. Continue with supportive care. Patient is afebrile with no reported chest pain or shortness of breath. Patient has been tolerating some diet and eating a little better. Recommended continue with bowel regimen. 08/26/2024 Patient is seen in follow-up today reports she is having severe pain in the sacral and lower buttock region reporting she is unable to walk and has immense pain. Family was concerned about a possible urinary tract infection or kidney stones and multiple images have been done with no stones detected. Will order urinalysis. Encouraged oral intake and increased activity as tolerated. Orthopedics recommending PT/OT therapy evaluation and working with physical therapy more as patient family is still discussing going home with home care and rehab in the home. Patient would likely benefit from ECF for continued strength and mobility. Will await reevaluation with physical therapy and discuss further regarding discharge planning. 08/27/2024 Patient is seen in follow-up today laying flat in the bed reporting continued lower abdominal and pelvic region pain and unsure if it is coming from her back or her bladder. Patient follows with Dr. Goldstein out of [facility] for recurrent bladder issues and has recurrent urinary tract infections and has been having this pain chronically for quite some time. Per his daughter at the bedside patient reports she was recently started on antibiotic in the outpatient setting by this urologist although has not been given any antibiotics here. Repeat urinalysis was performed twice and was negative and was determined is likely asymptomatic bacteriuria. Patient is very immobile and almost maximum assist on attempting to work with physical therapy. Daughter reports patient got up and walked with herself to the commode although this was not witnessed. Patient has been encouraged to increase activity as tolerated and has been cleared by orthopedics to work with physical therapy. Would recommend working with physical therapy daily as patient is significantly weak with prolonged hospitalization and would benefit from ECF although family does not want to take her to the rehab. Plans on returning home with home care. 08/28/2024 Patient seen in follow-up this morning with daughter at the bedside and have discussed further and will be planning on going to ECF on discharge as patient continues to be significantly weak with prolonged hospitalization and having difficulties with ambulating. Patient continues to have bladder spasms and pain and being evaluated by urology with no plans of surgical intervention at this time. CT was not suggestive of anything acute and bladder ultrasound is ordered and pending. Patient is afebrile with no reports of chest pain or shortness of breath. Patient has been tolerating diet and encouraging supplements between meals. Recommend PT/OT therapy daily. Patient will require insurance authorization which will be pending at this time Review of Systems Constitutional: Denied any fatigue denied any fever. Anxious to ambulate and hesitant Cardio vascular: denied any chest pain, palpitations Gastrointestinal: denied any nausea, vomiting, diarrhea Pulmonary: Denied any shortness of breath cough Neurologic reports of significant back pain in the lower sacral and buttock area and feeling unable to ambulate . All inpatient medications were reviewed and appropriate changes in these medications as dictated in the interval history and assessment and plan. PHYSICAL EXAMINATION: GENERAL: The patient is alert and oriented x2, not in any acute distress. Well developed, well nourished. Elderly appearing, at baseline HEENT: Pupils are round and equally reacting to light. EOMI. No scleral icterus. No conjunctival pallor. Normocephalic, atraumatic. No pharyngeal erythema. No thyromegaly. CARDIOVASCULAR: S1 and S2 muffled PULMONARY: Diminished breath sounds bilaterally otherwise chest is clear to auscultation, no wheezing or crackles. ABDOMEN: Soft, nontender, nondistended, normoactive bowel sounds. No palpable organomegaly. MUSCULOSKELETAL: No joint swelling or deformity. EXTREMITIES: No cyanosis, clubbing, or pedal edema. NEUROLOGICAL: Gross neurological examination did not reveal any focal deficits. Diffusely weak SKIN: No rashes. Assessment: - Altered mental status medication use mostly because of cyclobenzaprine, improved and at baseline - Asymptomatic bacteriuria: urinary tract infection ruled out -Chronic recurrent urinary tract infections follows with urologist outpatient - Compression fractures, lower back pain: Status post kyphoplasty of [id number] - Type 2 diabetes mellitus history - Essential tremor for which patient is on propranolol which will be continued - Hyperkalemia secondary to hemolysis, improved - GI prophylaxis - DVT prophylaxis: Lovenox - Full code Plan: Patient being evaluated by orthopedics is status post kyphoplasty as mentioned previously. Patient reporting severe pain in the buttock and sacral region when attempting to get up this afternoon. X-rays reviewed with orthopedics with no plans of surgical intervention. No new fractures noted. Orthopedics recommending working with physical therapy daily and has instructed patient and family members to comply with this in order to evaluate and treat. Recommend PT/OT therapy daily as patient and family are now willing to go to [facility] on discharge for continued strength mobility as patient is significantly weak. Continue with pain management and monitor closely with IV narcotics given patient's age, would recommend avoiding IV narcotics if possible Continue supportive care and okay for Ultram every 6 Family is concerned of possible urinary tract infection and urinalysis was performed and negative. Patient follows with Dr. Goldstein in the outpatient setting for chronic urinary tract infections and bladder pain and has been ongoing. Daughter reports was given antibiotics and only took 1 or 2 pills before coming here and is concerned about a urinary tract infection. Will sub julita urine culture and urology was consulted and evaluated the patient with no surgical interventions noted at this time and has ordered an ultrasound of the bladder which is pending CT abdomen pelvis nonspecific with no acute findings noted Recommend monitoring Accu-Cheks AC and at bedtime and monitor blood sugars closely and will continue current insulin regimen and adjust if needed Orthopedic following and has discussed in detail extensively with family regarding overall prognosis and patient and family are now agreeable to attempt rehab. Social work consulted and following and will need to submit for insurance authorization. Given 29 August holiday, insurance companies are closed and will likely not obtain authorization until Sunday. Will plan for discharge planning on 09/01/2024 Due to multiple complex medical issues, overall prognosis is guarded The impression and plan of care has been dictated by Gladys Ko, Nurse Practitioner as directed. Dr. Cheko MD I have performed a history and examination and MDM of this patient, discussed the same with the dictator, and agree with the dictator's assessment and plan as written ,documented as a scribe. Based on total visit time, I have performed more than 50% of the visit. Objective - Vital Signs Vital signs: Vital Signs Temp 98.3 F 08/28/24 20:01 Pulse 69 08/28/24 20:01 Resp 16 08/28/24 20:01 BP 115/78 08/28/24 20:01 Pulse Ox 91 L 08/28/24 20:01 FiO2 Intake & Output 08/28/24 08/28/24 08/29/24 06:59 18:59 06:59 Output Total 809 100 Balance -809 -100 Weight 67.132 kg Output: Urine 500 100 Post Void Residual 309 Other: Voiding Method External Catheter External Catheter # Voids 3 - Labs CBC & Chem 7: 08/28/24 05:50 08/28/24 05:50 Labs: Abnormal Lab Results - Last 24 Hours (Table) 08/28/24 08/28/24 08/28/24 Range/Units 05:50 05:50 07:02 RBC 3.95 L (4.10-5.20) X 10*6/uL MCV 98.5 H (80.0-97.0) FL MCH 32.4 H (27.0-32.0) pg Immature Gran # 0.06 H (0.00-0.04) X 10*3/uL Monocytes # 1.10 H (0.20-1.00) X 10*3/uL Sodium 134 L (135-145) mmol/L Carbon Dioxide 21.1 L (21.6-31.8) mmol/L Anion Gap 12.90 H (4.00-12.00) mmol/L Glucose 180 H (70-110) mg/dL POC Glucose (mg/dL) 167 H (70-110) mg/dL 08/28/24 08/28/24 08/28/24 Range/Units 11:59 17:13 20:26 RBC (4.10-5.20) X 10*6/uL MCV (80.0-97.0) FL MCH (27.0-32.0) pg Immature Gran # (0.00-0.04) X 10*3/uL Monocytes # (0.20-1.00) X 10*3/uL Sodium (135-145) mmol/L Carbon Dioxide (21.6-31.8) mmol/L Anion Gap (4.00-12.00) mmol/L Glucose (70-110) mg/dL POC Glucose (mg/dL) 175 H 132 H 199 H (70-110) mg/dL
[2024-08-29 07:17] LABS: Glucose,Whole Blood 160 mg/dL (70-110)
--- NOTE | 2024-08-29 11:08 | P.PN ---
Progress Note - Text Progress Note Date: 08/29/24 Orthopedic spine: History of present illness: Patient is an 79-year-old female known to our service who is seen examined at bedside for further evaluation of her thoracic or lumbar spine. She was recently seen in our office on 08/19/2024. She is known to have compression fracture deformities of T11, L2, and L3. She was being treated for compression fracture deformity in the outpatient setting. Patient was recently admitted to [facility] for evaluation of kidney stones. Patient was not found to have kidney stones. She was admitted for 2 weeks. During this time her back pain significantly worsened. Multiple imaging modalities were taken during her admission to [facility]. MRI imaging was reviewed in our office yesterday. She was found to have multiple compression fracture deformities again stated at T11, L2, and L3. Patient had been progressing over time for her treatment of compression fracture deformity before her symptoms significantly worsened during her admission to [facility]. X-ray imaging of the thoracic and lumbar spine were taken during her admission to the hospital which showed evidence of known compression fractures of T11, L2, and L3 as well as new fracture of T12. Patient has had significant difficulty with her mobilization. She is not having significant improvement during her admission to the hospital. It was discussed proceeding forward with T12, L2, and L3 kyphoplasty with biopsy which was performed on 08/23/2024. Postoperatively, patient has had significant improvement of her symptoms in regards to her thoracic and lumbar pain. She states she is not currently experiencing any significant thoracic or lumbar pain. She has, however, continue to have significant difficulty with her mobilization. Due to this, she has remained in the hospital. Given her lack of improvement over the past couple days she is not willing to discharge to a rehabilitation facility. Authorization is currently pending. If approved, patient is most likely to be discharged to rehab this coming 09/01/2024. Her urination status has improved as the patient states she has been able to mobilize the hallway in the restroom however, she is not mobilizing really any other time and spends the rest of her time lying flat in bed. She continues to state her pain is exacerbated when sitting upright in a chair and wants to continue lying flat. Patient states she was hospitalized at [facility] for couple weeks for evaluation of her kidneys for possible kidney stones at [facility]. She follows with urology there who is planning for a scope. Patient was experiencing altered mental status changes after change in medication following her previous discharge from [facility]. She has had significant improvement in regards to her mental status during her admission here at . Toradol has been discontinued. Pain currently being controlled with tramadol. Physical exam: Patient is awake, alert, and oriented 3 Postoperative day #6 Vital signs stable Adequate chest excursion with deep inspiration and expiration Patient declines examination of her thoracic or lumbar spine at the bedside Dressings over the kyphoplasty sites are clean, dry, and intact No drainage, erythema, bruising, or obvious sign of infection at the thoracic or lumbar spines Patient is able to roll over in bed independently without significant difficulty Dorsiflexion, plantarflexion, and extensor hallucis longus positive sustained bilaterally Lower extremity strength 5/5 bilaterally Straight leg test negative bilateral lower extremities No signs or symptoms of DVT; no calf pain Neurovascularly intact Pertinent studies: X-rays of the thoracic and lumbar spines taken on 08/20/2024: T12 acute compression fracture deformity; acute/subacute compression fracture deformities of L2 and L3; chronic compression fracture deformity of T11 Assessment: Status post T12, L2, and L3 kyphoplasty with biopsy Acute compression fracture deformities of T12, L2, and L3 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 Patient has acute compression fracture deformity of T12 and acute/subacute compression fracture deformities of L2 and L3. She underwent T12, L2, and L3 kyphoplasty with biopsy on 08/23/2024. Since that time her thoracic and lumbar pain has been significantly improved. She does not feel she is having significant pain. She continues to have significant difficulty with her mobilization postoperatively. She was originally planning for discharge hopefully this past Sunday. She has been able to help with transfers to a bedside commode and some ambulation down the valdes. Other than that, she has not had much mobility or ambulation. Patient states she is having difficulty sitting upright and prefers to be lying flat. She is progressing slowly postoperatively even though she states she does not have significant thoracic or lumbar pain. Given her lack of improvement in terms of mobilization, it was strongly recommended for her to consider discharge to a rehabilitation facility. Patient was adamantly against a rehabilitation facility. She is now willing to go to a rehabilitation facility. Authorization is pending. This most likely could happen this coming 09/01/2024. We did discuss we would plan for prescription for tramadol at the time of discharge. A new prescription will be printed, signed, and placed in her chart for discharge to a rehabilitation facility. We would defer muscle relaxer medication to medicine given her previous altered mental status with cy clobenzaprine. MAPS has been reviewed on 08/25/2024, with an Overall Overdose Risk Score of 20. An "Opiod Start Talking" Form has been signed and placed in the patient's chart. A prescription has been written for tramadol 50 mg, 1 tab, every 6 hours, as needed for acute pain, dispense #28. Patient may be discharged from an orthopedic spine standpoint. Patient may follow-up with Marco Tanner PA-C or Dr. Sae Del Real at [facility] in 2-3 weeks following discharge. 2. Patient will work with physical therapy today. 3. Patient will continue to be seen and examined by medicine for her other medical diagnoses
[2024-08-29 12:11] LABS: Glucose,Whole Blood 184 mg/dL (70-110)
--- NOTE | 2024-08-29 13:04 | P.PN ---
Subjective Pain is unchanged, ultrasound was only significant for a bladder diverticulum. Denies dysuria or gross hematuria Objective - Vital Signs Vital signs: Vital Signs Temp 97.9 F 08/29/24 12:38 Pulse 59 L 08/29/24 12:38 Resp 18 08/29/24 12:38 BP 116/60 08/29/24 12:38 Pulse Ox 94 L 08/29/24 12:38 FiO2 Intake & Output 08/28/24 08/29/24 08/29/24 18:59 06:59 18:59 Output Total 100 Balance -100 Weight 67.132 kg Output: Urine 100 Other: Voiding Method External Catheter External Catheter # Voids 3 2 - Constitutional General appearance: Present: no acute distress - Gastrointestinal General gastrointestinal: Present: soft. Absent: distended, tenderness - Labs CBC & Chem 7: 08/28/24 05:50 08/28/24 05:50 Labs: Abnormal Lab Results - Last 24 Hours (Table) 08/28/24 08/28/24 08/29/24 Range/Units 17:13 20:26 07:15 POC Glucose (mg/dL) 132 H 199 H 160 H (70-110) mg/dL 08/29/24 Range/Units 12:07 POC Glucose (mg/dL) 184 H (70-110) mg/dL Microbiology - Last 24 Hours (Table) 08/27/24 18:10 Urine Culture - Final Urine,Clean Catch Assessment and Plan Assessment: 79-year-old female with lower abdominal pain with radiation to the back. Her pain is not consistent with bladder spasms as is not associated with voiding she is not having any dysuria. Even with bladder emptying there is no change in pain. Urine analysis is within normal limits. Bladder ultrasound is only significant for bladder diverticulum. Bladder diverticulum would not cause pain, this is most likely occurred due to her incomplete bladder emptying. From urology standpoint I do not have an etiology for her pain, please evaluate other causes.
--- NOTE | 2024-08-29 13:30 | P.PN ---
Subjective Progress Note Date: 08/29/24 79-year-old female was brought in by family members because of altered mental status. Patient is well-known to me for her from her prolonged hospitalization at [facility] where she was treated for compression fractures. Patient was sent home on increased dose of [place] along with cyclobenzaprine dose of which was recently increased after the dose of cyclobenzaprine was increased patient started having confusional episodes and was lethargic. Patient was believed to have a UTI because of her back pain although patient does not have any other symptoms of UTI patient does not have leukocytosis does not have any fever patient was recently started on antibiotic considering that back pain as a UTI. Patient denies any dysuria or increased urgency or frequency. Patient has mild elevated potassium but this is hemolyzed sample. Patient is alert oriented but still confused 08/20/2024 Patient is evaluated in follow-up in the medical floor. Her electrolytes have significantly improved sodium of 135 potassium 4.2 BUN of 27.5 creatinine 0.7. White blood cell count remains normal at 6.42. She has been afebrile 96% on 2 L of oxygen via nasal cannula. She is currently off of her [place] and cyclobenzaprine. She is receiving Toradol for pain. Plan with home with home care on discharge however we are still pending the PT evaluation. 08/21/2024 Patient is seen in follow-up today with orthopedics Dr. Del Real following patient has multiple compression fractures and orthopedics had ordered lumbar and thoracic spine x-rays and discussed with the patient with subacute compression fractures and deformities noted at T12, L2, L3. Patient per nursing staff attempt to get up although was extremely weak and unable to due to the pain. Mentation is improved and at baseline with daughter at the bedside and patient is willing to proceed with surgical intervention. Patient will be n.p.o. and discussion of possible surgical intervention this evening or a.m. Patient is afebrile and with no reports of chest pain or shortness of breath. Patient has been tolerating diet with no reported nausea or vomiting. 08/22/2024 Patient seen in follow-up today currently n.p.o. with orthopedics following planning on kyphoplasty today and will await official report. Patient reports she was able to stand on the side of the bed and reports this has been the first time she has done this since hospitalization. Patient is currently lying flat in bed and reports her pain is managed on current regimen. Patient is afebrile with no reports of chest pain or shortness of breath. Patient reports is having bowel movements and voiding with no difficulties at this time. 08/25/2024 Patient is seen in follow-up this morning status post kyphoplasty was reported to doing relatively well and pain controlled on current regimen discussing possibly going home with home care. Patient may benefit from ECF although family does not want patient to go to rehab. Will arrange for home care with rehab in the home setting. Patient was reporting severe pain later in the afternoon when getting up in the lower back and sacral region. Will obtain x- rays for further evaluation. Continue with supportive care. Patient is afebrile with no reported chest pain or shortness of breath. Patient has been tolerating some diet and eating a little better. Recommended continue with bowel regimen. 08/26/2024 Patient is seen in follow-up today reports she is having severe pain in the sacral and lower buttock region reporting she is unable to walk and has immense pain. Family was concerned about a possible urinary tract infection or kidney stones and multiple images have been done with no stones detected. Will order urinalysis. Encouraged oral intake and increased activity as tolerated. Orthopedics recommending PT/OT therapy evaluation and working with physical therapy more as patient family is still discussing going home with home care and rehab in the home. Patient would likely benefit from ECF for continued strength and mobility. Will await reevaluation with physical therapy and discuss further regarding discharge planning. 08/27/2024 Patient is seen in follow-up today laying flat in the bed reporting continued lower abdominal and pelvic region pain and unsure if it is coming from her back or her bladder. Patient follows with Dr. Goldstein out of [facility] for recurrent bladder issues and has recurrent urinary tract infections and has been having this pain chronically for quite some time. Per his daughter at the bedside patient reports she was recently started on antibiotic in the outpatient setting by this urologist although has not been given any antibiotics here. Repeat urinalysis was performed twice and was negative and was determined is likely asymptomatic bacteriuria. Patient is very immobile and almost maximum assist on attempting to work with physical therapy. Daughter reports patient got up and walked with herself to the commode although this was not witnessed. Patient has been encouraged to increase activity as tolerated and has been cleared by orthopedics to work with physical therapy. Would recommend working with physical therapy daily as patient is significantly weak with prolonged hospitalization and would benefit from ECF although family does not want to take her to the rehab. Plans on returning home with home care. 08/28/2024 Patient seen in follow-up this morning with daughter at the bedside and have discussed further and will be planning on going to ECF on discharge as patient continues to be significantly weak with prolonged hospitalization and having difficulties with ambulating. Patient continues to have bladder spasms and pain and being evaluated by urology with no plans of surgical intervention at this time. CT was not suggestive of anything acute and bladder ultrasound is ordered and pending. Patient is afebrile with no reports of chest pain or shortness of breath. Patient has been tolerating diet and encouraging supplements between meals. Recommend PT/OT therapy daily. Patient will require insurance authorization which will be pending at this time 08/29/2024 Patient is seen in follow-up today with orthopedics following along with social work and physical therapy. Patient being evaluated by urology with no plans of surgical intervention at this time. Patient does have an outpatient follow-up appointment with her primary urologist in the office and will likely be an outpatient procedure. Patient continues to lay flat and does not want to get up out of bed for most of the day and PT/OT therapy was ordered for daily to work on continued strength and mobility. Discussed with the patient about getting up and working with physical therapy and being compliant with treatment plan as laying in bed most of the day will only make her more progressively weak and have increased difficulties and increased pain. Review of Systems Constitutional: Denied any fatigue denied any fever. Anxious to ambulate and hesitant Cardio vascular: denied any chest pain, palpitations Gastrointestinal: denied any nausea, vomiting, diarrhea Pulmonary: Denied any shortness of breath cough Neurologic reports of significant back pain in the lower sacral and buttock area and feeling unable to ambulate . All inpatient medications were reviewed and appropriate changes in these medications as dictated in the interval history and assessment and plan. PHYSICAL EXAMINATION: GENERAL: The patient is alert and oriented x2, not in any acute distress. Well developed, well nourished. Elderly appearing, at baseline HEENT: Pupils are round and equally reacting to light. EOMI. No scleral icterus. No conjunctival pallor. Normocephalic, atraumatic. No pharyngeal erythema. No thyromegaly. CARDIOVASCULAR: S1 and S2 muffled PULMONARY: Diminished breath sounds bilaterally otherwise chest is clear to auscultation, no wheezing or crackles. ABDOMEN: Soft, nontender, nondistended, normoactive bowel sounds. No palpable organomegaly. MUSCULOSKELETAL: No joint swelling or deformity. EXTREMITIES: No cyanosis, clubbing, or pedal edema. NEUROLOGICAL: Gross neurological examination did not reveal any focal deficits. Diffusely weak SKIN: No rashes. Assessment: - Altered mental status medication use mostly because of cyclobenzaprine, improved and at baseline - Asymptomatic bacteriuria: urinary tract infection ruled out -Chronic recurrent urinary tract infections follows with urologist outpatient - Compression fractures, lower back pain: Status post kyphoplasty of [id number] - Type 2 diabetes mellitus history - Essential tremor for which patient is on propranolol which will be continued - Hyperkalemia secondary to hemolysis, improved - GI prophylaxis - DVT prophylaxis: Lovenox - Full code Plan: Patient being evaluated by orthopedics is status post kyphoplasty as mentioned previously. Patient reporting severe pain in the buttock and sacral region when attempting to get up this afternoon. X-rays reviewed with orthopedics with no plans of surgical intervention. No new fractures noted. Orthopedics recommending working with physical therapy daily and has instructed patient and family members to comply with this in order to evaluate and treat. Recommend PT/OT therapy daily as patient and family are now willing to go to [facility] on discharge for continued strength mobility as patient is significantly weak. Continue with pain management and monitor closely with IV narcotics given patient's age, would recommend avoiding IV narcotics if possible Continue supportive care and okay for Ultram every 6 Family is concerned of possible urinary tract infection and urinalysis was performed and negative. Patient follows with Dr. Goldstein in the outpatient setting for chronic urinary tract infections and bladder pain and has been ongoing. Daughter reports was given antibiotics and only took 1 or 2 pills before coming here and is concerned about a urinary tract infection. Will submit urine culture and urology was consulted and evaluated the patient with no surgical interventions noted at this time and has ordered an ultrasound of the bladder which is pending CT abdomen pelvis nonspecific with no acute findings noted Recommend monitoring Accu-Cheks AC and at bedtime and monitor blood sugars closely and will continue current insulin regimen and adjust if needed Orthopedic following and has discussed in detail extensively with family regarding overall prognosis and patient and family are now agreeable to attempt rehab. Social work consulted and following and will need to submit for insurance authorization. Given 29 August holiday, insurance companies are closed and will likely not obtain authorization until Sunday. Will plan for discharge planning on 09/01/2024 Due to multiple complex medical issues, overall prognosis is guarded The impression and plan of care has been dictated by Gladys Ko, Nurse Practitioner as directed. Dr. Cheko MD I have performed a history and examination and MDM of this patient, discussed the same with the dictator, and agree with the dictator's assessment and plan as written ,documented as a scribe. Based on total visit time, I have performed more than 50% of the visit. Objective - Vital Signs Vital signs: Vital Signs Temp 97.9 F 08/29/24 12:38 Pulse 59 L 08/29/24 12:38 Resp 18 08/29/24 12:38 BP 116/60 08/29/24 12:38 Pulse Ox 94 L 08/29/24 12:38 FiO2 Intake & Output 08/28/24 08/29/24 08/29/24 18:59 06:59 18:59 Output Total 100 Balance -100 Weight 67.132 kg Output: Urine 100 Other: Voiding Method External Catheter External Catheter External Catheter # Voids 3 2 - Labs CBC & Chem 7: 08/28/24 05:50 08/28/24 05:50 Labs: Abnormal Lab Results - Last 24 Hours (Table) 08/28/24 08/28/24 08/29/24 Range/Units 17:13 20:26 07:15 POC Glucose (mg/dL) 132 H 199 H 160 H (70-110) mg/dL 08/29/24 Range/Units 12:07 POC Glucose (mg/dL) 184 H (70-110) mg/dL Microbiology - Last 24 Hours (Table) 08/27/24 18:10 Urine Culture - Final Urine,Clean Catch
[2024-08-29 17:39] LABS: Glucose,Whole Blood 187 mg/dL (70-110)
[2024-08-29 20:13] LABS: Glucose,Whole Blood 176 mg/dL (70-110)
[2024-08-30 06:50] LABS: Glucose,Whole Blood 161 mg/dL (70-110)
[2024-08-30] MEDS: PANTOPRAZOLE 40 MG TABLET PO SCH (07:36)
[2024-08-30 12:07] LABS: Glucose,Whole Blood 150 mg/dL (70-110)
[2024-08-30 17:07] LABS: Glucose,Whole Blood 147 mg/dL (70-110)
[2024-08-30 20:35] LABS: Glucose,Whole Blood 193 mg/dL (70-110)
--- NOTE | 2024-08-30 22:58 | P.PN ---
Subjective Progress Note Date: 08/30/24 79-year-old female was brought in by family members because of altered mental status. Patient is well-known to me for her from her prolonged hospitalization at [facility] where she was treated for compression fractures. Patient was sent home on increased dose of [place] along with cyclobenzaprine dose of which was recently increased after the dose of cyclobenzaprine was increased patient started having confusional episodes and was lethargic. Patient was believed to have a UTI because of her back pain although patient does not have any other symptoms of UTI patient does not have leukocytosis does not have any fever patient was recently started on antibiotic considering that back pain as a UTI. Patient denies any dysuria or increased urgency or frequency. Patient has mild elevated potassium but this is hemolyzed sample. Patient is alert oriented but still confused 08/20/2024 Patient is evaluated in follow-up in the medical floor. Her electrolytes have significantly improved sodium of 135 potassium 4.2 BUN of 27.5 creatinine 0.7. White blood cell count remains normal at 6.42. She has been afebrile 96% on 2 L of oxygen via nasal cannula. She is currently off of her [place] and cyclobenzaprine. She is receiving Toradol for pain. Plan with home with home care on discharge however we are still pending the PT evaluation. 08/21/2024 Patient is seen in follow-up today with orthopedics Dr. Del Real following patient has multiple compression fractures and orthopedics had ordered lumbar and thoracic spine x-rays and discussed with the patient with subacute compression fractures and deformities noted at T12, L2, L3. Patient per nursing staff attempt to get up although was extremely weak and unable to due to the pain. Mentation is improved and at baseline with daughter at the bedside and patient is willing to proceed with surgical intervention. Patient will be n.p.o. and discussion of possible surgical intervention this evening or a.m. Patient is afebrile and with no reports of chest pain or shortness of breath. Patient has been tolerating diet with no reported nausea or vomiting. 08/22/2024 Patient seen in follow-up today currently n.p.o. with orthopedics following planning on kyphoplasty today and will await official report. Patient reports she was able to stand on the side of the bed and reports this has been the first time she has done this since hospitalization. Patient is currently lying flat in bed and reports her pain is managed on current regimen. Patient is afebrile with no reports of chest pain or shortness of breath. Patient reports is having bowel movements and voiding with no difficulties at this time. 08/25/2024 Patient is seen in follow-up this morning status post kyphoplasty was reported to doing relatively well and pain controlled on current regimen discussing possibly going home with home care. Patient may benefit from ECF although family does not want patient to go to rehab. Will arrange for home care with rehab in the home setting. Patient was reporting severe pain later in the afternoon when getting up in the lower back and sacral region. Will obtain x- rays for further evaluation. Continue with supportive care. Patient is afebrile with no reported chest pain or shortness of breath. Patient has been tolerating some diet and eating a little better. Recommended continue with bowel regimen. 08/26/2024 Patient is seen in follow-up today reports she is having severe pain in the sacral and lower buttock region reporting she is unable to walk and has immense pain. Family was concerned about a possible urinary tract infection or kidney stones and multiple images have been done with no stones detected. Will order urinalysis. Encouraged oral intake and increased activity as tolerated. Orthopedics recommending PT/OT therapy evaluation and working with physical therapy more as patient family is still discussing going home with home care and rehab in the home. Patient would likely benefit from ECF for continued strength and mobility. Will await reevaluation with physical therapy and discuss further regarding discharge planning. 08/27/2024 Patient is seen in follow-up today laying flat in the bed reporting continued lower abdominal and pelvic region pain and unsure if it is coming from her back or her bladder. Patient follows with Dr. Goldstein out of [facility] for recurrent bladder issues and has recurrent urinary tract infections and has been having this pain chronically for quite some time. Per his daughter at the bedside patient reports she was recently started on antibiotic in the outpatient setting by this urologist although has not been given any antibiotics here. Repeat urinalysis was performed twice and was negative and was determined is likely asymptomatic bacteriuria. Patient is very immobile and almost maximum assist on attempting to work with physical therapy. Daughter reports patient got up and walked with herself to the commode although this was not witnessed. Patient has been encouraged to increase activity as tolerated and has been cleared by orthopedics to work with physical therapy. Would recommend working with physical therapy daily as patient is significantly weak with prolonged hospitalization and would benefit from ECF although family does not want to take her to the rehab. Plans on returning home with home care. 08/28/2024 Patient seen in follow-up this morning with daughter at the bedside and have discussed further and will be planning on going to ECF on discharge as patient continues to be significantly weak with prolonged hospitalization and having difficulties with ambulating. Patient continues to have bladder spasms and pain and being evaluated by urology with no plans of surgical intervention at this time. CT was not suggestive of anything acute and bladder ultrasound is ordered and pending. Patient is afebrile with no reports of chest pain or shortness of breath. Patient has been tolerating diet and encouraging supplements between meals. Recommend PT/OT therapy daily. Patient will require insurance authorization which will be pending at this time 08/29/2024 Patient is seen in follow-up today with orthopedics following along with social work and physical therapy. Patient being evaluated by urology with no plans of surgical intervention at this time. Patient does have an outpatient follow-up appointment with her primary urologist in the office and will likely be an outpatient procedure. Patient continues to lay flat and does not want to get up out of bed for most of the day and PT/OT therapy was ordered for daily to work on continued strength and mobility. Discussed with the patient about getting up and working with physical therapy and being compliant with treatment plan as laying in bed most of the day will only make her more progressively weak and have increased difficulties and increased pain. 08/30/2024 Patient evaluated today resting in bed. She had just gotten back into the bed from sitting up in the chair. States she is having pain below the surgical site in her lumbar spine which is radiating into the tailbone and spasming. She states she does not want to get back up out of bed today and would prefer to lay in bed all day. Reinforced the importance of being up out of bed ambulating and sitting in the chair. Patient verbalizes understanding although remains resistance. Currently pending insurance authorization for discharge to subacute rehab. Review of Systems Constitutional: Denied any fatigue denied any fever. Anxious to ambulate and hesitant Cardio vascular: denied any chest pain, palpitations Gastrointestinal: denied any nausea, vomiting, diarrhea Pulmonary: Denied any shortness of breath cough Neurologic reports of significant back pain in the lower sacral and buttock area and feeling unable to ambulate . All inpatient medications were reviewed and appropriate changes in these medications as dictated in the interval history and assessment and plan. PHYSICAL EXAMINATION: GENERAL: The patient is alert and oriented x2, not in any acute distress. Well developed, well nourished. Elderly appearing, at baseline HEENT: Pupils are round and equally reacting to light. EOMI. No scleral icterus. No conjunctival pallor. Normocephalic, atraumatic. No pharyngeal erythema. No thyromegaly. CARDIOVASCULAR: S1 and S2 muffled PULMONARY: Diminished breath sounds bilaterally otherwise chest is clear to auscultation, no wheezing or crackles. ABDOMEN: Soft, nontender, nondistended, normoactive bowel sounds. No palpable organomegaly. MUSCULOSKELETAL: No joint swelling or deformity. EXTREMITIES: No cyanosis, clubbing, or pedal edema. NEUROLOGICAL: Gross neurological examination did not reveal any focal deficits. Diffusely weak SKIN: No rashes. Assessment: - Altered mental status medication use mostly because of cyclobenzaprine, improved and at baseline - Asymptomatic bacteriuria: urinary tract infection ruled out -Chronic recurrent urinary tract infections follows with urologist outpatient - Compression fractures, lower back pain: Status post kyphoplasty of [id number] - Type 2 diabetes mellitus history - Essential tremor for which patient is on propranolol which will be continued - Hyperkalemia secondary to hemolysis, improved - GI prophylaxis - DVT prophylaxis: Lovenox - Full code Plan: Patient being evaluated by orthopedics is status post kyphoplasty as mentioned previously. Patient reporting severe pain in the buttock and sacral region when attempting to get up this afternoon. X-rays reviewed with orthopedics with no plans of surgical intervention. No new fractures noted. Orthopedics recommending working with physical therapy daily and has instructed patient and family members to comply with this in order to evaluate and treat. Recommend PT/OT therapy daily as patient and family are now willing to go to [facility] on discharge for continued strength mobility as patient is significantly weak. Continue with pain management and monitor closely with IV narcotics given patient's age, would recommend avoiding IV narcotics if possible Continue supportive care and okay for Ultram every 6 Family is concerned of possible urinary tract infection and urinalysis was performed and negative. Patient follows with Dr. Goldstein in the outpatient setting for chronic urinary tract infections and bladder pain and has been ongoing. Daughter reports was given antibiotics and only took 1 or 2 pills before coming here and is concerned about a urinary tract infection. Will submit urine culture and urology was consulted and evaluated the patient with no surgical interventions noted at this time and has ordered an ultrasound of the bladder which is pending CT abdomen pelvis nonspecific with no acute findings noted Recommend monitoring Accu-Cheks AC and at bedtime and monitor blood sugars closely and will continue current insulin regimen and adjust if needed Orthopedic following and has discussed in detail extensively with family regardi ng overall prognosis and patient and family are now agreeable to attempt rehab. Social work consulted and following and will need to submit for insurance authorization. Given 29 August holiday, insurance companies are closed and will likely not obtain authorization until Sunday. Will plan for discharge planning on 09/01/2024 Due to multiple complex medical issues, overall prognosis is guarded The impression and plan of care has been dictated by Adrienne Horn, Nurse Practitioner as directed. Dr. Denise MD I have performed a history and physical examination and medical decision making of this patient, discussed the same with the dictator, and agree with the dictators assessment and plan as written, documented as a scribe. Based on total visit time, I have performed more than 50% of this visit. Objective - Vital Signs Vital signs: Vital Signs Temp 98.3 F 08/30/24 12:55 Pulse 69 08/30/24 12:55 Resp 20 08/30/24 12:55 BP 135/73 08/30/24 12:55 Pulse Ox 95 08/30/24 12:55 FiO2 Intake & Output 08/29/24 08/30/24 08/30/24 18:59 06:59 18:59 Intake Total 590 Balance 590 Intake: Oral 590 Other: Voiding Method External Catheter Bedside Commode External Catheter Diaper # Voids 2 - Labs CBC & Chem 7: 08/28/24 05:50 08/28/24 05:50 Labs: Abnormal Lab Results - Last 24 Hours (Table) 08/29/24 08/29/24 08/30/24 Range/Units 17:38 20:12 06:49 POC Glucose (mg/dL) 187 H 176 H 161 H (70-110) mg/dL 08/30/24 Range/Units 12:04 POC Glucose (mg/dL) 150 H (70-110) mg/dL Microbiology - Last 24 Hours (Table) 08/27/24 18:10 Urine Culture - Final Urine,Clean Catch
[2024-08-31 07:15] LABS: Glucose,Whole Blood 145 mg/dL (70-110)
[2024-08-31 12:14] LABS: Glucose,Whole Blood 171 mg/dL (70-110)
--- NOTE | 2024-08-31 15:47 | P.PN ---
Subjective Progress Note Date: 08/31/24 79-year-old female was brought in by family members because of altered mental status. Patient is well-known to me for her from her prolonged hospitalization at [facility] where she was treated for compression fractures. Patient was sent home on increased dose of Hampton along with cyclobenzaprine dose of which was recently increased after the dose of cyclobenzaprine was increased patient started having confusional episodes and was lethargic. Patient was believed to have a UTI because of her back pain although patient does not have any other symptoms of UTI patient does not have leukocytosis does not have any fever patient was recently started on antibiotic considering that back pain as a UTI. Patient denies any dysuria or increased urgency or frequency. Patient has mild elevated potassium but this is hemolyzed sample. Patient is alert oriented but still confused 08/20/2024 Patient is evaluated in follow-up in the medical floor. Her electrolytes have significantly improved sodium of 135 potassium 4.2 BUN of 27.5 creatinine 0.7. White blood cell count remains normal at 6.42. She has been afebrile 96% on 2 L of oxygen via nasal cannula. She is currently off of her Hampton and cyclobenzaprine. She is receiving Toradol for pain. Plan with home with home care on discharge however we are still pending the PT evaluation. 08/21/2024 Patient is seen in follow-up today with orthopedics Dr. Del Real following patient has multiple compression fractures and orthopedics had ordered lumbar and thoracic spine x-rays and discussed with the patient with subacute compression fractures and deformities noted at T12, L2, L3. Patient per nursing staff attempt to get up although was extremely weak and unable to due to the pain. Mentation is improved and at baseline with daughter at the bedside and patient is willing to proceed with surgical intervention. Patient will be n.p.o. and discussion of possible surgical intervention this evening or a.m. Patient is afebrile and with no reports of chest pain or shortness of breath. Patient has been tolerating diet with no reported nausea or vomiting. 08/22/2024 Patient seen in follow-up today currently n.p.o. with orthopedics following planning on kyphoplasty today and will await official report. Patient reports she was able to stand on the side of the bed and reports this has been the first time she has done this since hospitalization. Patient is currently lying flat in bed and reports her pain is managed on current regimen. Patient is afebrile with no reports of chest pain or shortness of breath. Patient reports is having bowel movements and voiding with no difficulties at this time. 08/25/2024 Patient is seen in follow-up this morning status post kyphoplasty was reported to doing relatively well and pain controlled on current regimen discussing possibly going home with home care. Patient may benefit from ECF although family does not want patient to go to rehab. Will arrange for home care with rehab in the home setting. Patient was reporting severe pain later in the afternoon when getting up in the lower back and sacral region. Will obtain x- rays for further evaluation. Continue with supportive care. Patient is afebrile with no reported chest pain or shortness of breath. Patient has been tolerating some diet and eating a little better. Recommended continue with bowel regimen. 08/26/2024 Patient is seen in follow-up today reports she is having severe pain in the sacral and lower buttock region reporting she is unable to walk and has immense pain. Family was concerned about a possible urinary tract infection or kidney stones and multiple images have been done with no stones detected. Will order urinalysis. Encouraged oral intake and increased activity as tolerated. Orthopedics recommending PT/OT therapy evaluation and working with physical therapy more as patient family is still discussing going home with home care and rehab in the home. Patient would likely benefit from ECF for continued strength and mobility. Will await reevaluation with physical therapy and discuss further regarding discharge planning. 08/27/2024 Patient is seen in follow-up today laying flat in the bed reporting continued lower abdominal and pelvic region pain and unsure if it is coming from her back or her bladder. Patient follows with Dr. Goldstein out of [facility] for recurrent bladder issues and has recurrent urinary tract infections and has been having this pain chronically for quite some time. Per his daughter at the bedside patient reports she was recently started on antibiotic in the outpatient setting by this urologist although has not been given any antibiotics here. Repeat urinalysis was performed twice and was negative and was determined is likely asymptomatic bacteriuria. Patient is very immobile and almost maximum assist on attempting to work with physical therapy. Daughter reports patient got up and walked with herself to the commode although this was not witnessed. Patient has been encouraged to increase activity as tolerated and has been cleared by orthopedics to work with physical therapy. Would recommend working with physical therapy daily as patient is significantly weak with prolonged hospitalization and would benefit from ECF although family does not want to take her to the rehab. Plans on returning home with home care. 08/28/2024 Patient seen in follow-up this morning with daughter at the bedside and have discussed further and will be planning on going to ECF on discharge as patient continues to be significantly weak with prolonged hospitalization and having difficulties with ambulating. Patient continues to have bladder spasms and pain and being evaluated by urology with no plans of surgical intervention at this time. CT was not suggestive of anything acute and bladder ultrasound is ordered and pending. Patient is afebrile with no reports of chest pain or shortness of breath. Patient has been tolerating diet and encouraging supplements between meals. Recommend PT/OT therapy daily. Patient will require insurance authorization which will be pending at this time 08/29/2024 Patient is seen in follow-up today with orthopedics following along with social work and physical therapy. Patient being evaluated by urology with no plans of surgical intervention at this time. Patient does have an outpatient follow-up appointment with her primary urologist in the office and will likely be an outpatient procedure. Patient continues to lay flat and does not want to get up out of bed for most of the day and PT/OT therapy was ordered for daily to work on continued strength and mobility. Discussed with the patient about getting up and working with physical therapy and being compliant with treatment plan as laying in bed most of the day will only make her more progressively weak and have increased difficulties and increased pain. 08/30/2024 Patient evaluated today resting in bed. She had just gotten back into the bed from sitting up in the chair. States she is having pain below the surgical site in her lumbar spine which is radiating into the tailbone and spasming. She states she does not want to get back up out of bed today and would prefer to lay in bed all day. Reinforced the importance of being up out of bed ambulating and sitting in the chair. Patient verbalizes understanding although remains resistance. Currently pending insurance authorization for discharge to subacute rehab. 08/31/2024 Patient is evaluated today in follow-up on the medical floor. She continues to report significant pain to her lower back. She wants to lay in the bed and states that she is unable to sit up in the chair for extended periods of time. She is currently pending authorization for discharge to rehab hopefully on September 01. She is on a bowel regimen. Review of Systems Constitutional: Denied any fatigue denied any fever. Anxious to ambulate and hesitant Cardio vascular: denied any chest pain, palpitations Gastrointestinal: denied any nausea, vomiting, diarrhea Pulmonary: Denied any shortness of breath cough Neurologic reports of significant back pain in the lower sacral and buttock area and feeling unable to ambulate . All inpatient medications were reviewed and appropriate changes in these medications as dictated in the interval history and assessment and plan. PHYSICAL EXAMINATION: GENERAL: The patient is alert and oriented x2, not in any acute distress. Well developed, well nourished. Elderly appearing, at baseline HEENT: Pupils are round and equally reacting to light. EOMI. No scleral icterus. No conjunctival pallor. Normocephalic, atraumatic. No pharyngeal erythema. No thyromegaly. CARDIOVASCULAR: S1 and S2 muffled PULMONARY: Diminished breath sounds bilaterally otherwise chest is clear to auscultation, no wheezing or crackles. ABDOMEN: Soft, nontender, nondistended, normoactive bowel sounds. No palpable organomegaly. MUSCULOSKELETAL: No joint swelling or deformity. EXTREMITIES: No cyanosis, clubbing, or pedal edema. NEUROLOGICAL: Gross neurological examination did not reveal any focal deficits. Diffusely weak SKIN: No rashes. Assessment: - Altered mental status medication use mostly because of cyclobenzaprine, improved and at baseline - Asymptomatic bacteriuria: urinary tract infection ruled out -Chronic recurrent urinary tract infections follows with urologist outpatient - Compression fractures, lower back pain: Status post kyphoplasty of [id number] - Type 2 diabetes mellitus history - Essential tremor for which patient is on propranolol which will be continued - Hyperkalemia secondary to hemolysis, improved - GI prophylaxis - DVT prophylaxis: Lovenox - Full code Plan: Orthopedics recommending working with physical therapy daily and has instructed patient and family members to comply with this in order to evaluate and treat. Continue with pain management and monitor closely with IV narcotics given patient's age, would recommend avoiding IV narcotics if possible Continue supportive care and okay for Ultram every 6 Family is concerned of possible urinary tract infection; Patient follows with Dr. Goldstein in the outpatient setting for chronic urinary tract infections and bladder pain and has been ongoing. Urine culture negative. Antibiotics not required. CT abdomen pelvis nonspecific with no acute findings noted Recommend monitoring Accu-Cheks AC and at bedtime and monitor blood sugars closely and will continue current insulin regimen and adjust if needed Orthopedic following and has discussed in detail extensively with family regarding overall prognosis and patient and family are now agreeable to attempt rehab. Social work consulted and following and will need to submit for insurance authorization. Will plan for discharge planning on 09/01/2024 Orthopedics have consulted pain management for evaluation as patient has continued reports of severe lower back pain. The impression and plan of care has been dictated by Adrienne Horn, Nurse Practitioner as directed. Dr. Denise MD I have performed a history and physical examination and medical decision making of this patient, discussed the same with the dictator, and agree with the dic tators assessment and plan as written, documented as a scribe. Based on total visit time, I have performed more than 50% of this visit. Objective - Vital Signs Vital signs: Vital Signs Temp 98.0 F 08/31/24 14:00 Pulse 65 08/31/24 14:00 Resp 16 08/31/24 14:00 BP 143/58 08/31/24 14:00 Pulse Ox 95 08/31/24 14:00 FiO2 Intake & Output 08/30/24 08/31/24 08/31/24 18:59 06:59 18:59 Other: Voiding Method Toilet Bedside Commode Toilet Bedside Commode Diaper Bedside Commode Diaper Diaper Incontinent Incontinent # Voids 1 2 1 # Bowel Movements 2 1 - Labs CBC & Chem 7: 08/28/24 05:50 08/28/24 05:50 Labs: Abnormal Lab Results - Last 24 Hours (Table) 08/30/24 08/30/24 08/31/24 Range/Units 17:06 20:33 07:14 POC Glucose (mg/dL) 147 H 193 H 145 H (70-110) mg/dL 08/31/24 Range/Units 12:12 POC Glucose (mg/dL) 171 H (70-110) mg/dL Assessment and Plan Time with Patient: Less than 30
[2024-08-31 17:11] LABS: Glucose,Whole Blood 161 mg/dL (70-110)
[2024-08-31 20:47] LABS: Glucose,Whole Blood 199 mg/dL (70-110)
[2024-09-01 01:04] VITALS: RESP 18
[2024-09-01 07:20] LABS: Glucose,Whole Blood 172 mg/dL (70-110)
[2024-09-01 07:34] VITALS: TEMP 97.5
[2024-09-01 08:22] LABS: Basophils # (A) 0.06 X 10*3/uL (0.00-0.10); Basophils % (A) 0.6 %; Eosinophils # (A) 0.10 X 10*3/uL (0.04-0.35); Eosinophils % (A) 1.0 %; HCT 38.2 % (37.2-46.3); HGB 12.7 g/dL (12.0-15.0); Immature Grans, Automated 0.30 %; Lymphocytes # (A) 3.45 X 10*3/uL (0.90-5.00); Lymphocytes % (A) 36.1 %; MCH 32.9 pg (27.0-32.0); MCHC 33.2 g/dL (32.0-37.0); MCV 99.0 FL (80.0-97.0); Monocytes # (A) 1.10 X 10*3/uL (0.20-1.00); Monocytes % (A) 11.5 %; NRBC Per 100 WBC 0 X 10*3/uL (0.00-0.01); Neutrophils # (A) 4.83 X 10*3/uL (1.80-7.70); Neutrophils % (A) 50.5 %; Platelet Count 309 X 10*3/uL (140-440); RBC 3.86 X 10*6/uL (4.10-5.20); RDW 13.6 % (11.5-14.5); WBC 9.57 X 10*3/uL (4.50-10.00)
[2024-09-01 08:35] LABS: Anion Gap 12.20 mmol/L (4.00-12.00); BUN/Creat Ratio 30.00 Ratio (12.00-20.00); Blood Urea Nitrogen 18.0 mg/dL (9.0-27.0); Calcium 9.0 mg/dL (8.7-10.3); Carbon Dioxide 21.8 mmol/L (21.6-31.8); Chloride 101 mmol/L (96-109); Glucose 159 mg/dL (70-110); Potassium 4.1 mmol/L (3.5-5.5); Sodium 135 mmol/L (135-145)
--- NOTE | 2024-09-01 12:03 | CT ---
EXAMINATION TYPE: CT lumbar spine wo con DATE OF EXAM: 09/01/2024 11:38 AM COMPARISON: 03/02/2023, 02/09/2022. CLINICAL INDICATION: Female, 79 years old with history of M54.16; PHH, post-op TECHNIQUE: Multiple axial images were obtained from the midportion of T11 through the sacroiliac shireen nts. Soft tissue and bone windows in coronal and sagittal planes were obtained and reviewed. Contrast used: mL of , (None, if empty). Oral contrast used: (None, if empty). CT DLP: 922 mGycm, Automated exposure control for dose reduction was used. FINDINGS: Alignment: There are 5 lumbar type vertebral bodies. Scoliosis changes with dextroscoliosis apex L2-L 3. Bone: No evidence of fracture is identified. Multilevel degeneration changes with osteophyte formati on, disc space narrowing, facet joint arthropathy. There is vertebral plasty changes of T12 L2 and L3 . Vertebral plasty cement does enter the disc space at L3-L4, T11-T12, T12-L1 and L1-L2. Endplate buc patience of T11 is unchanged from 03/02/20232024% height loss. Discs: T12-L1: Facet joint arthropathy, osteophytes and disc bulging result in mild spinal canal stenosis an d mild bilateral neural foraminal stenosis. L1-L2: Facet joint arthropathy, osteophytes and disc bulging result in mild spinal canal stenosis and mild bilateral neural foraminal stenosis. L2-L3: Facet joint arthropathy, osteophytes and disc bulging result in moderate spinal canal stenosis and moderate bilateral neural foraminal stenosis. L3-L4: Facet joint arthropathy, osteophytes and disc bulging result in moderate spinal canal stenosis and moderate to severe bilateral neural foraminal stenosis. L4-L5: Facet joint arthropathy, osteophytes and disc bulging result in moderate to severe spinal miguel l stenosis and mild bilateral neural foraminal stenosis. L5-S1: No spinal canal or neural foraminal stenosis is identified. Other: Right upper quadrant cholecystectomy clips. Moderate atherosclerosis of the arterial vasculatu re. IMPRESSION: 1. Buckling of the superior endplate of L4 correlate with MRI to exclude new acute fracture. 2. Vertebroplasty changes in the spine particularly T12 L2 and L3. Vertebral plasty cement does ente r the disc space at L3-L4, T11-T12, T12-L1 and L1-L2 3. Moderate degeneration changes with osteophyte formation and facet joint arthropathy. 4. Stable T11 vertebral body superior endplate compression deformity without the 25% height loss. 5. Moderate to severe spinal canal stenosis at L4-L5 secondary disc bulge and facet joint arthropath y. 6. Moderate L2-L3 L3-L4 spinal canal stenosis secondary to disc bulge and facet joint arthropathy [facility], , 09/01/2024 12:01 PM
[2024-09-01 12:24] LABS: Glucose,Whole Blood 178 mg/dL (70-110)
[2024-09-01 12:32] VITALS: BP 175/83; PULSE 64
--- NOTE | 2024-09-01 13:53 | P.DS ---
Providers Date of admission: 08/19/24 14:00 Expected date of discharge: 09/01/24 Attending physician: Tejinder Walker Consults: 08/19/24 13:59 Consult Physician Routine Consulting Provider: Francoise Del Real Consult Reason/Comments: Back pain Do you want consulting provider notified?: Yes 08/27/24 12:18 Consult Physician Urgent Consulting Provider: Ash Meier Consult Reason/Comments: recent uti, bladder pain Do you want consulting provider notified?: Yes Primary care physician: Wayne Rivero Hospital Course: Final diagnosis - Altered mental status medication use mostly because of cyclobenzaprine, improved and at baseline - Asymptomatic bacteriuria: urinary tract infection ruled out -Chronic recurrent urinary tract infections follows with urologist outpatient - Compression fractures, lower back pain: Status post kyphoplasty of [id number] - Type 2 diabetes mellitus history - Essential tremor for which patient is on propranolol which will be continued - Hyperkalemia secondary to hemolysis, improved - GI prophylaxis - DVT prophylaxis: Lovenox - Full code Discharge disposition Patient is being discharged in a stable condition with guarded prognosis to [facility]. Patient will follow-up with Dr. Rivero in the outpatient setting upon discharge. Patient is to continue with outpatient follow-up with orthopedics as well as pain management as scheduled. Total time taken is greater than 35 minutes. Hospital course This is a 79-year-old female who was recently admitted with altered mental status with increased pain and uncontrolled back pain apparently taking too many Flexeril at home due to the pain and becoming more altered. Patient mentation is improved and is at baseline and is status post orthopedic evaluation and did undergo kyphoplasty of T12/L2/L3 with multiple compression fractures noted. Patient has had significant prolonged hospitalization with continued ongoing pain was evaluated by physical therapy and initially wanting to go home although the pain was too intense and patient not up and working with physical therapy evaluated again by physical therapy recommending rehab and patient and family are now agreeable. Patient has been accepted at [facility] and insurance authorization is obtained and will be discharged today. Patient was evaluated by pain management underwent CT imaging and recommending outpatient follow-up to continue with current pain regimen. Patient also with significant history of urinary tract infections and bladder distention problems follows with urologist Dr. Adam of [facility] in the outpatient setting and has instructed the patient and family to follow-up with him on discharge. Please refer to other consultation notes for further HPI. Currently no reports of chest pain, short ness of breath, or palpitations. Patient is afebrile. No reports of nausea or vomiting and patient is tolerating diet. Patient will be going to [facility] on the [place] today. High risk for readmissions given significant comorbidities and noncompliance Physical exam: Gen: This is a 79-year-old female who is awake, alert and oriented x 2-3, baseline, well-developed, elderly appearing HEENT: Head is atraumatic, normocephalic. Pupils equal, round. Sclerae is anicteric. NECK: Supple. No JVD. No lymphadenopathy. No thyromegaly. LUNGS: Diminished breath sounds bilaterally otherwise clear to auscultation. No wheezes or rhonchi. No intercostal retractions. HEART: S1, S2 2 are muffled ABDOMEN: Soft. Obese bowel sounds are present. No masses. No tenderness. EXTREMITIES: No pedal edema. No calf tenderness. Lower extremity weakness bilaterally NEUROLOGICAL: Patient is awake, alert and oriented x3. Cranial nerves 2 through 12 are grossly intact. Diffusely weak Please refer to medication reconciliation sheet for a list of medications. The impression and plan of care has been dictated by Gladys Ko, Nurse Practitioner as directed. Dr. Denise MD I have performed a history and examination and MDM of this patient, discussed the same with the dictator, and agree with the dictator's assessment and plan as written ,documented as a scribe. Based on total visit time, I have performed more than 50% of the visit. Patient Condition at Discharge: Stable Plan - Discharge Summary Discharge Rx Participant: No New Discharge Prescriptions: New traMADol HCl [Ultram] 50 mg PO Q6H PRN #28 tab PRN Reason: Pain INSULIN LISPRO (HumaLOG) [HumaLOG] 0 unit SQ ACHS each HYDROcodone/APAP 5-325MG [Franklin 5-325] 1 each PO Q4HR PRN #4 tab PRN Reason: Moderate Pain (Scale 4 To 6) Pantoprazole [Protonix] 40 mg PO AC-BRKFST tab methocarbamoL [Robaxin-750] 750 mg PO TID PRN tab PRN Reason: Muscle Spasm Enoxaparin [Lovenox] 40 mg SQ DAILY each Acetaminophen Tab [Tylenol] 650 mg PO Q6HR PRN tab PRN Reason: Mild Pain 1-3 or Fever > 100.5 Continue Cyclobenzaprine [Flexeril] 10 mg PO BID PRN PRN Reason: Muscle Spasm polyethylene glycoL 3350 [Miralax] 17 gm PO DAILY PRN PRN Reason: Constipation Propranolol HCl [Propranolol HCl ER] 120 mg PO BID Phenazopyridine [Pyridium] 100 mg PO TID PRN PRN Reason: uti pain Ondansetron Odt [Zofran ODT] 4 mg PO DIRECTED PRN PRN Reason: Nausea Sennosides 8.6 mg PO DAILY PRN PRN Reason: Constipation Discontinued HYDROcodone/APAP 10-325MG [Franklin 10-325] 1 tab PO Q6H Nitrofurantoin Monohyd/M-Cryst [Macrobid] 100 mg PO BID Discharge Medication List Cyclobenzaprine [Flexeril] 10 mg PO BID PRN 08/19/24 [History] Ondansetron Odt [Zofran ODT] 4 mg PO DIRECTED PRN 08/19/24 [History] Phenazopyridine [Pyridium] 100 mg PO TID PRN 08/19/24 [History] Propranolol HCl [Propranolol HCl ER] 120 mg PO BID 08/19/24 [History] Sennosides 8.6 mg PO DAILY PRN 08/19/24 [History] polyethylene glycoL 3350 [Miralax] 17 gm PO DAILY PRN 08/19/24 [History] traMADol HCl [Ultram] 50 mg PO Q6H PRN #28 tab 08/29/24 [Rx] Acetaminophen Tab [Tylenol] 650 mg PO Q6HR PRN tab 09/01/24 [Rx] Enoxaparin [Lovenox] 40 mg SQ DAILY each 09/01/24 [Rx] HYDROcodone/APAP 5-325MG [Franklin 5-325] 1 each PO Q4HR PRN #4 tab 09/01/24 [Rx] INSULIN LISPRO (HumaLOG) [HumaLOG] 0 unit SQ ACHS each 09/01/24 [Rx] Pantoprazole [Protonix] 40 mg PO AC-BRKFST tab 09/01/24 [Rx] methocarbamoL [Robaxin-750] 750 mg PO TID PRN tab 09/01/24 [Rx] Follow up Appointment(s)/Referral(s): Wayne Rivero MD [Primary Care Provider] - 08/28/24 2:45 pm Marco Tanner PAC [PHYSICIAN MOLD MAINTENANCE TECHNICIAN] - 09/09/24 9:40 am ( ) Jose Henderson MD [STAFF PHYSICIAN] - 2 Weeks (Consultation with intervent ional pain management) Activity/Diet/Wound Care/Special Instructions: 1. Patient should avoid excessive bending, twisting, and lifting; no lifting greater than 10 pounds Discharge/Stand Alone Forms: Who Do I Call? Discharge Disposition: TRANSFER TO SNF/ECF
== END 2024-09-01 15:56 | DRG 477 ==
LOC: EC 09:59 → OBSVTOIN 14:00 → 5NMEDONC 14:00
PROVIDERS: ADMIT Internal Medicine; ATTEND Internal Medicine
PROC: 0QB00ZX Excision of Lumbar Vertebra, Open Approach, Diagnostic (ICD-10-PCS; 2024-08-23)
PROC: 0PS43ZZ Reposition Thoracic Vertebra, Percutaneous Approach (ICD-10-PCS; 2024-08-23)
PROC: 0PU43JZ Supplement Thoracic Vertebra with Synthetic Substitute, Percutaneous Approach (ICD-10-PCS; 2024-08-23)
PROC: 0QS03ZZ Reposition Lumbar Vertebra, Percutaneous Approach (ICD-10-PCS; 2024-08-23)
PROC: 0QU03JZ Supplement Lumbar Vertebra with Synthetic Substitute, Percutaneous Approach (ICD-10-PCS; 2024-08-23)
PROC: 0PB40ZX Excision of Thoracic Vertebra, Open Approach, Diagnostic (ICD-10-PCS; principal; 2024-08-23 13:00)
DX: M80.88XA Other osteoporosis with current pathological fracture, vertebra(e), initial encounter for fracture (principal); G92.8 Other toxic encephalopathy; R78.81 Bacteremia; E11.9 Type 2 diabetes mellitus without complications; E87.5 Hyperkalemia; G89.29 Other chronic pain; G25.0 Essential tremor; T48.1X5A Adverse effect of skeletal muscle relaxants [neuromuscular blocking agents], initial encounter; M47.816 Spondylosis without myelopathy or radiculopathy, lumbar region; T40.2X5A Adverse effect of other opioids, initial encounter; N32.3 Diverticulum of bladder; Z87.440 Personal history of urinary (tract) infections; Z87.891 Personal history of nicotine dependence; Z79.84 Long term (current) use of oral hypoglycemic drugs
CPT/HCPCS: 36415; 71046; 72070; 72100; 72131; 72220; 74176; 76857; 80048; 80053; 80306; 81003; 83735; 85025; 85027; 85610; 87086; 88307; 88311; 93005; 96360; 96361; 99285